=== PATIENT | female | born 1955 | race Caucasian/White ===

== ENCOUNTER 2023-08-24 12:32 | Inpatient (IN) | payer MEDICARE, SELFPAY ==
[2023-08-24] VITALS (7 sets, daily range): BP systolic 88–116; BP diastolic 48–66; PULSE 86–125; RESP 12–18; TEMP 36.4–37.6; O2SAT 98–100; BMI 23.3; BMI 24.3
--- NOTE | 2023-08-24 12:59 | EX.ED.DYSGE1 ---
HPI History of Present Illness Chief Complaint: Palpitations Detail of Chief Complaint: Palpitations, orthostatic dizziness, diarrhea and thirst Informant: patient Onset/Context/Timing Onset: Days (Onset Wednesday) Context: Sudden Onset Timing: Continuous and Waxes and wanes Quality: Orthostatic and diarrhea Location: GI and cardiovascular Current Severity: Mild Maximum Severity: Moderate Worsened by: Upright position Relieved by: Improved with brat diet yesterday Associated Symptoms Associated Symptoms: Previously documented Narrative Narrative: Patient is a 68-year-old woman with history of hypertension. Who presents with diarrhea that started Wednesday. She had 3 loose stools on Wednesday. She had 5 loose stools on Wednesday. She states it was mushy yesterday after she started a brat diet. Today she states it is watery again. She has not been on an antibiotic in the last month. She has had no ill contacts. She denies blood or mucus in her diarrhea. She denies black or maroon-colored stool. She states she is still urinating. She is thirsty. She also endorses dry mouth. She denies fever or chills. Denies myalgias or arthralgias. Prior similar symptoms: Yes Recent Illness/Hospitalization: No PFSH PFSH Home Medications hydrocodone-acetaminophen 5-325mg 5mg-325mg 1 tab PO Q6H PRN PRN Pain ##10 12/15/15 [Rx Last Taken Unknown] fenofibrate nanocrystallized 145 mg tablet 145 mg PO DAILY 12/16/15 [History Last Taken 12/15/15] levothyroxine 75 mcg tablet 75 mcg PO DAILY 12/16/15 [History Last Taken 12/15/15] lisinopril 10 mg-hydrochlorothiazide 12.5 mg tablet (Zestoretic) 1 tab PO DAILY 12/16/15 [History Last Taken 12/15/15] Allergy/AdvReac Type Severity Reaction Status Date / Time scallops Allergy Itching Verified 08/24/23 13:05 ketorolac tromethamine AdvReac Other Verified 08/24/23 13:05 [From Toradol] tramadol AdvReac Nausea Verified 08/24/23 13:05 Social History (Updated 08/24/23 @ 13:[address] Rolly Clarke MD) household members: none Smoking Status: Never smoker ROS ROS ED Constitutional Constitutional ED: Denies chills, fever(s), subjective or sweats Eyes Eyes: Denies blurry vision, change in vision or diplopia ENT ENT ED: Denies ear pain, rhinorrhea or sore throat Cardiovascular Cardiovascular: Reports palpitations; Denies chest pain Respiratory/Chest Respiratory/Chest: Denies cough, dyspnea or dyspnea on exertion Gastrointestinal Gastrointestinal: Reports abdominal pain and diarrhea; Denies constipation, melena, nausea or vomiting Genitourinary Genitourinary ED: Denies dysuria, hematuria or urinary frequency Musculoskeletal Musculoskeletal: Denies arthralgias or myalgias Integumentary Denies rash Neurologic Neurologic: Reports weakness; Denies headache(s) or paresthesias Endocrine Endocrinology: Denies cold intolerance or heat intolerance Hematologic/Lymphatic Hematologic/Lymphatic: Reports systems reviewed and no addt'l complaints, except as documented EXAM Physical Exam Const Vital Signs: 08/24/23 12:32 08/24/23 14:41 Temperature 98.1 F Temperature Source Temporal Pulse Rate 125 H 89 Respiratory Rate 18 15 Blood Pressure 88/58 L 116/64 Blood Pressure Mean 68 81 Pulse Ox 100 100 Oxygen Delivery Method Room Air Positive well nourished and well developed General Appearance ED: well developed, NAD and pallor HEENT Reports dry mucous membranes HEENT Narrative: Head is atraumatic and normocephalic. Ears are normal. Nares are patent. Posterior pharynx is normal. Mouth ED: Yes dry mucous membranes Mouth: dry mucous membranes Eyes PERRL and EOMs intact bilaterally General Eye ED: Yes pale conjunctiva; Negative for scleral icterus Neck no lymphadenopathy, supple and no JVD Chest Wall inspection of chest normal and palpation of chest normal Resp normal respiratory effort and clear to auscultation bilaterally Cardio regular rate, regular rhythm, S1 normal heart sound, S2 normal heart sound and no murmurs GI normal to inspection, nondistended, normoactive bowel sounds, non-tender, non-distended and no masses; Negative for hepatosplenomegaly Back/Spine no CVA tenderness Extremity normal to inspection Neuro oriented x3, CN's II-XII intact bilaterally and no sensory deficits noted Sensorium / Orientation: alert Psych mental status grossly normal Skin no rashes or lesions noted, no wounds and No skin turgor normal General Skin Exam: pallor; Negative for jaundice MDM MDM MDM Narrative Medical decision making narrative: Initial vital signs reveal patient was hypotensive and tachycardic. Suspect this is because she was upright when the pressure was taken. In supine position her pressure is 106 systolic with a heart rate of 88. PACs were noted on the monitor. Patient had a history of premature beats for the past 2 years. She is not on anticoagulant. Clinically she is dehydrated and suspect patient has orthostatic hypotension. 1 L normal saline was ordered. BMP was obtained to assess renal function and evaluate for hypokalemia. CBC to assess white count and determine the patient has eosinophilia. She has no risk factors for parasitic infection. Suspect this is viral. Lab Data Attestation: I reviewed the patient's lab results. Lab results narrative: Patient had a 2 to 3 g drop in hemoglobin. BUN/creatinine ratio is elevated. This may be due to GI bleed or profound dehydration. Patient had a bowel movement just prior to me walking in. The stool within the commode is a black-maroon appearing mushy stool. This is consistent with a GI bleed. Will call hospitalist for admission. Will have patient typed and screened. Will also contact Dr. Ceballos. Labs: Laboratory Results - last 24 hr 08/24/23 13:00 WBC 11.7 H RBC 3.11 L Hgb 9.1 L Hct 28.3 L MCV 91.0 MCH 29.3 MCHC 32.2 RDW Std Deviation 47.7 H RDW Coeff of Masood 14.5 Plt Count 316 MPV 9.0 Immature Gran % (Auto) 0.700 Neut % (Auto) 85.7 H Lymph % (Auto) 11.1 L [place] % (Auto) 2.1 Eos % (Auto) 0.0 Baso % (Auto) 0.4 Absolute Neuts (auto) 10.0 H Absolute Lymphs (auto) 1.30 Nucleated RBC % 0 Sodium 135 L Potassium 4.0 Chloride 106 Carbon Dioxide 25.0 Anion Gap 4 L BUN 43 H Creatinine 0.77 Estim Creat Clear Calc 73.79 Est GFR (MDRD) Af Amer 96 Est GFR (MDRD) Non-Af 79 BUN/Creatinine Ratio 55.6 H Glucose 140 H Calcium 9.1 EKG Initial EKG: Attestation: I personally reviewed and interpreted this EKG as follows: Interpretation: Sinus Rhythm (Rate is 88. Nonseptic ST-T wave changes noted. FL interval is under 72 ms. Cures duration 102 ms. QT duration 3 and 54 ms. [place] is normal.) Management Discussion w/another healthcare provider: Hospitalist (Hospitalist made aware of the history and physical and findings.) and Tenter Frame Operator (Dr. Ceballos was consulted. He plans on scoping her this evening.) Treatment and Re-Evaluation :: Will administer dose of Protonix. GI was consulted. Hospitalist was paged for admission. I was informed. 8584 the patient is going to the OR for EGD. Critical Care Time Critical Care Time: Yes Critical care time (excluding procedures): 30-74 minutes (31), Including time spent: (History, physical, independent rotation of laboratory results,), Discussing w/Patient &/or Family/Jockey'S Agent, Discussing w/Consultants (Hospitalist and GI), Arranging Admission or Transfer and - (Plan is OR prior to admission for emergent EGD) Discharge Plan Dx/Rx/DC Orders Clinical Impression: Orthostatic hypotension, Anemia due to blood loss, Signs and symptoms of anemia, History of renal hypertension, Symptomatic anemia, Acute gastrointestinal bleeding Disposition Disposition: Acute Care Hospital [facility]
[2023-08-24] MEDS: 0.9% Normal Saline (1000mL) 1,000 ML 1000 ML IV (13:19)
[2023-08-24 13:27] LABS: Basophil# 0.05 X10^3/uL; Basophil% 0.4 % (0-1); Hematocrit 28.3 % (37-47); Hemoglobin 9.1 g/dL (12.0-15.0); Lymphocyte % 11.1 % (19-41); Mean Corp Hgb Conc 32.2 g/dL (32-36); Mean Corpuscular Hgb 29.3 pg (27.0-32.0); Monocyte# 0.25 X10^3/uL; Monocyte% 2.1 % (0-10); NRBC Flagged by Analyzer 0 % (0-5); Neutrophil # 9.99 X10^3/uL (2.7-7.7); Neutrophil % 85.7 % (47-70); Platelet Count 316 K/mm3 (150-450); RBC Distribution Width CV 14.5 % (11.6-14.6); RBC Distribution Width SD 47.7 fl (35.1-43.9); Red Blood Count 3.11 M/mm3 (4.2-5.4); White Blood Count 11.7 K/mm3 (4.4-11.0)
[2023-08-24 13:42] LABS: Anion Gap 4 (5-15); BUN 43 mg/dL (7-18); BUN/Creat Ratio 55.6 RATIO (10-20); Calcium,Total 9.1 mg/dL (8.5-10.1); Chloride 106 mmol/L (98-107); Creatinine, Serum 0.77 mg/dL (0.55-1.02); EST Glomerular Filtration Rate 79 mL/min (>60); Est Glom Filt Rate - Afr Amer 96 mL/min (>60); Estimated Creatinine Clearance 73.79 ml/min; Glucose 140 mg/dL (74-106); Sodium Level 135 mmol/L (136-145)
--- NOTE | 2023-08-24 16:17 | NURSING ---
PCU [facility] GI BLEED, ORTHOSTATIC HYPOTENSION, SYNTOMATIC ANEMIA W SIGNS
--- NOTE | 2023-08-24 16:22 | CHAPLAIN ---
Type of Pastoral Visit _x__ Initial Visit ___ Follow-up Visit ___ On-call Visit ___ General Patient Visit ___ Spiritual Assessment ___ Family Conference ___ Bereavement ___ Rapid Response ___ Code Blue ___ Other (describe below) Pastoral Care Referral From _x__ Patient _x__ Family ___ Nurse ___ Physician ___ Data Conversion Operator ___ Social Work Lecturer ___ Other (describe below) Sacrament/Intervention _x__ Active listening ___ Anointing ___ Holiness ___ Bereavement ___ Communion ___ Kaye exploration ___ ___ Life review _x__ Prayer ___ Reconciliation ___ Sacrament of Sick ___ Supportive presence ___ Wedding ___ Other (describe below) Pastoral Comments while addressing a code situation in the ED the daughter of this patient invited care and prayer for her mother; presence and prayer given with offer of future support if patient is admitted
--- NOTE | 2023-08-24 16:27 | NURSING ---
SURGERY GI BLEED DR GUTIERREZ
[2023-08-24] MEDS: Pantoprazole Sodium 80 MG in 0.9% Normal Saline (50mL Bag) 15 ML 420 MG IV BOLUS (16:30)
--- NOTE | 2023-08-24 16:38 | HP.PCM.HOS_ITS ---
HPI - General General Date of Admission: 08/24/23 Date of Service: 08/24/23 Chief Complaint: Dizzy, black stool HPI Narrative ALEXANDREA GODFREY, is a 68 F with a history of hypertension and hypothyroidism who presented to [facility] ED 08/24/2023 with several days of diarrhea that has been dark and dizziness with palpitations. In the ED she had a maroon stool and was also found to have a hemoglobin of 9.1, no other previous or recent values but was hypotensive and tachycardic. GI contacted and patient be taken for scope. Patient seen in ED prior to being taken for EGD. She reports that on Wednesday she started having dark diarrhea and has been dizzy and having palpitations, it has just been worsening and today had the maroon stools in the ED. No abdominal pain, no other specific complaints. PFSH Home Medications hydrocodone-acetaminophen 5-325mg 5mg-325mg 1 tab PO Q6H PRN PRN Pain ##10 12/15/15 [Rx Last Taken Unknown] fenofibrate nanocrystallized 145 mg tablet 145 mg PO DAILY 12/16/15 [History Last Taken 12/15/15] levothyroxine 75 mcg tablet 75 mcg PO DAILY 12/16/15 [History Last Taken 12/15/15] lisinopril 10 mg-hydrochlorothiazide 12.5 mg tablet (Zestoretic) 1 tab PO DAILY 12/16/15 [History Last Taken 12/15/15] Allergy/AdvReac Type Severity Reaction Status Date / Time scallops Allergy Itching Verified 08/24/23 13:05 zolpidem [From Ambien] AdvReac Mild Other Verified 08/24/23 16:46 atorvastatin [From Lipitor] AdvReac Other Verified 08/24/23 16:46 ketorolac tromethamine AdvReac Other Verified 08/24/23 13:05 [From Toradol] meloxicam AdvReac Other Verified 08/24/23 16:46 nabumetone [From Relafen] AdvReac Other Verified 08/24/23 16:46 naproxen AdvReac Upset Verified 08/24/23 16:46 Stomach ondansetron [From Zofran] AdvReac Other Verified 08/24/23 16:46 tramadol AdvReac Nausea Verified 08/24/23 13:05 Social History (Updated 08/24/23 @ 13:[address] Rolly Clarke MD) household members: none Smoking Status: Never smoker ROS ROS Narrative General: Denies fever/chills, has been dizzy and feeling unwell HENT: Denies headache, denies stuffy nose, denies sore throat EYES: Denies changes in vision Resp: Denies cough, denies shortness of breath Cardiac: Denies chest pain GI: Denies abdominal pain, has had dark diarrhea since Wednesday, denies nausea/vomiting : Denies changes in urination Extremity: Denies swelling MSK: Somewhat weak Neuro: Denies any numbness/tingling Heme: Denies any bleeding or bruising Skin: Denies rashes Psychiatric: No complaints voiced Vital Signs Vital Signs Vital Signs: 08/24/23 12:32 08/24/23 14:41 08/24/23 16:21 Temperature 98.1 F 99.6 F H Temperature Source Temporal Pulse Rate 125 H 89 89 Respiratory Rate 18 15 12 Blood Pressure 88/58 L 116/64 112/66 Blood Pressure Mean 68 81 81 Pulse Ox 100 100 99 Oxygen Delivery Method Room Air Weight Weight: 74.644 kg Body Mass Index (BMI) 23.3 Physical Exam Narrative General: Alert, oriented, no apparent distress HEENT: Atraumatic, normocephalic Eyes: Anicteric, normal conjunctiva, extraocular movements grossly intact Neck: Supple Respiratory: Clear to auscultation bilaterally, normal respiratory effort Cardiovascular: Low-grade tachycardia, sinus GI: Soft, nontender, nondistended Extremities: No edema Musculoskeletal: Moving all extremities Neuro: No overt focal neurological deficits Skin: No rashes appreciated Psych: Cooperative Results Lab / Micro Data 08/24/23 13:00 08/24/23 13:00 Labs: Laboratory Results - last 24 hr 08/24/23 13:00: WBC 11.7 H, RBC 3.11 L, Hgb 9.1 L, Hct 28.3 L, MCV 91.0, MCH 29.3, MCHC 32.2, RDW Std Deviation 47.7 H, RDW Coeff of Masood 14.5, Plt Count 316, MPV 9.0, Immature Gran % (Auto) 0.700, Neut % (Auto) 85.7 H, Lymph % (Auto) 11.1 L, [place] % (Auto) 2.1, Eos % (Auto) 0.0, Baso % (Auto) 0.4, Absolute Neuts (auto) 10.0 H, Absolute Lymphs (auto) 1.30, Nucleated RBC % 0, Sodium 135 L, Potassium 4.0, Chloride 106, Carbon Dioxide 25.0, Anion Gap 4 L, BUN 43 H, Creatinine 0.77, Estim Creat Clear Calc 73.79, Est GFR (MDRD) Af Amer 96, Est GFR (MDRD) Non-Af 79, BUN/Creatinine Ratio 55.6 H, Glucose 140 H, Calcium 9.1 Assessment & Plan Assessment/Plan (1) Acute gastrointestinal bleeding: (2) Hypertension: (3) Hypothyroidism: (4) Symptomatic anemia: PLAN: Plan # Symptomatic anemia and concern for GI bleed -Hemoglobin 9.1, no recent values but patient was hypotensive and tachycardic on arrival and had witnessed maroon-colored stools -Elevated BUN/Cr ratio, suggestive of upper bleed -Patient given bolus of Protonix -Continue IV Protonix -Type and cross -Trend H&H -N.p.o. -Patient to be taken to endoscopy with GI, formal GI consult #Hypothyroidism -Continue Synthroid # Hypertension -Hold home meds given low BP and GI bleed #DVT ppx: SCDs Alberta Ziegler MD Charges/Coding Visit Charges Inpatient E&M: 29638 Init Hosp L1
[2023-08-24 17:08] LABS: Hematocrit 25.3 % (37-47); Hemoglobin 8.1 g/dL (12.0-15.0); Mean Corpuscular Hgb 29.3 pg (27.0-32.0); Mean Corpuscular Volume 91.7 fL (81-99); Mean Platelet Vol. 9.1 fl (6.2-12.0); Platelet Count 281 K/mm3 (150-450); RBC Distribution Width CV 14.5 % (11.6-14.6); RBC Distribution Width SD 48.1 fl (35.1-43.9); Red Blood Count 2.76 M/mm3 (4.2-5.4); White Blood Count 10.8 K/mm3 (4.4-11.0)
--- NOTE | 2023-08-24 17:21 | EX.PCM.CON.G ---
HPI Consult Data Date of Consult: 08/24/23 HPI Narrative Reason for Consultation: GI bleed HPI Narrative: ALEXANDREA GODFREY, is a 68 F with a history of hypertension and hypothyroidism who presented to [facility] ED 08/24/2023 with several days of diarrhea that has been dark and dizziness with palpitations. In the ED she had a maroon stool and was also found to have a hemoglobin of 9.1, no other previous or recent values but was hypotensive and tachycardic. I was contacted and recommended that the patient be taken for scope. Patient was seen in ED prior to being taken for EGD. She reports that on Wednesday she started having dark diarrhea and has been dizzy and having palpitations, it has just been worsening and today had the maroon stools in the ED. No abdominal pain, no other specific complaints. [facility] Medical History (Updated 08/24/23 @ 17:15 by Fidelina Wagoner) Arthritis Palpitations Thyroid disease Home Medications fenofibrate nanocrystallized 145 mg tablet 145 mg PO DAILY 12/16/15 [History Last Taken 08/24/23 06:30] levothyroxine 75 mcg tablet 75 mcg PO DAILY 12/16/15 [History Last Taken 08/24/23] lisinopril 10 mg-hydrochlorothiazide 12.5 mg tablet (Zestoretic) 1 tab PO DAILY 12/16/15 [History Last Taken 08/24/23] albuterol sulfate 90 mcg/actuation aerosol inhaler inhalation 08/24/23 [History Last Taken Unknown] Allergy/AdvReac Type Severity Reaction Status Date / Time scallops Allergy Itching Verified 08/24/23 13:05 zolpidem [From Ambien] AdvReac Mild Other Verified 08/24/23 16:46 atorvastatin [From Lipitor] AdvReac Other Verified 08/24/23 16:46 ketorolac tromethamine AdvReac Other Verified 08/24/23 13:05 [From Toradol] meloxicam AdvReac Other Verified 08/24/23 16:46 nabumetone [From Relafen] AdvReac Other Verified 08/24/23 16:46 naproxen AdvReac Upset Verified 08/24/23 16:46 Stomach ondansetron [From Zofran] AdvReac Other Verified 08/24/23 16:46 tramadol AdvReac Nausea Verified 08/24/23 13:05 Social History (Updated 08/24/23 @ 13:[address] Rolly Clarke MD) household members: none Smoking Status: Never smoker ROS ROS Narrative General: Denies fever/chills, has been dizzy and feeling unwell HENT: Denies headache, denies stuffy nose, denies sore throat EYES: Denies changes in vision Resp: Denies cough, denies shortness of breath Cardiac: Denies chest pain GI: Denies abdominal pain, has had dark diarrhea since Wednesday, denies nausea/vomiting : Denies changes in urination Extremity: Denies swelling MSK: Somewhat weak Neuro: Denies any numbness/tingling Heme: Denies any bleeding or bruising Skin: Denies rashes Psychiatric: No complaints voiced Physical Exam Narrative General: Alert, oriented, no apparent distress HEENT: Atraumatic, normocephalic Eyes: Anicteric, normal conjunctiva, extraocular movements grossly intact Neck: Supple Respiratory: Clear to auscultation bilaterally, normal respiratory effort Cardiovascular: Low-grade tachycardia, sinus GI: Soft, nontender, nondistended Extremities: No edema Musculoskeletal: Moving all extremities Neuro: No overt focal neurological deficits Skin: No rashes appreciated Psych: Cooperative Lab / Micro Data 08/24/23 17:00 08/24/23 13:00 Labs: Laboratory Results - last 24 hr 08/24/23 13:00: WBC 11.7 H, RBC 3.11 L, Hgb 9.1 L, Hct 28.3 L, MCV 91.0, MCH 29.3, MCHC 32.2, RDW Std Deviation 47.7 H, RDW Coeff of Masood 14.5, Plt Count 316, MPV 9.0, Immature Gran % (Auto) 0.700, Neut % (Auto) 85.7 H, Lymph % (Auto) 11.1 L, [place] % (Auto) 2.1, Eos % (Auto) 0.0, Baso % (Auto) 0.4, Absolute Neuts (auto) 10.0 H, Absolute Lymphs (auto) 1.30, Nucleated RBC % 0, Sodium 135 L, Potassium 4.0, Chloride 106, Carbon Dioxide 25.0, Anion Gap 4 L, BUN 43 H, Creatinine 0.77, Estim Creat Clear Calc 73.79, Est GFR (MDRD) Af Amer 96, Est GFR (MDRD) Non-Af 79, BUN/Creatinine Ratio 55.6 H, Glucose 140 H, Calcium 9.1 08/24/23 17:00: WBC 10.8, RBC 2.76 L, Hgb 8.1 L, Hct 25.3 L, MCV 91.7, MCH 29.3, MCHC 32.0, RDW Std Deviation 48.1 H, RDW Coeff of Masood 14.5, Plt Count 281, MPV 9.1 Assessment & Plan Assessment/Plan (1) Acute gastrointestinal bleeding: (2) Hypertension: (3) Hypothyroidism: (4) Symptomatic anemia: PLAN: Plan 68-year-old with no significant past medical history other than hypothyroidism, asthma, hypertension and hypercholesterolemia presents with Symptomatic anemia and concern for GI bleed -Hemoglobin 9.1, no recent values but patient was hypotensive and tachycardic on arrival and had witnessed maroon-colored stools -Elevated BUN/Cr ratio, suggestive of upper bleed -Patient given bolus of Protonix -Continue IV Protonix -Type and cross -Trend H&H -N.p.o. -Patient will undergo an upper endoscopy and if negative she will need a CT scan abdomen pelvis and a colonoscopy possibly. She was explained alternatives, risk, benefits include not withstanding bleeding, infection, sepsis, perforation, need for emergent surgery . She will have an ASA of 3. Charges/Coding Visit Charges Inpatient E&M: 74233 Init Hosp L3
--- NOTE | 2023-08-24 17:45 | OP.EGD_ITS ---
Patient Name: Herminia Pinon Procedure Date: 08/24/2023 5:11 PM Date of : 1955 Age: 68 Procedure: Upper GI endoscopy Indications: Iron deficiency anemia, Melena Providers: Nav Ceballos DO Medicines: Monitored Anesthesia Care Patient Profile: This is a 68 year old female. Refer to note in patient chart for documentation of history and physical. Patient has symptoms of acute epigastric abdominal pain and acute dyspepsia. Complications: No immediate complications. Procedure: Pre-Anesthesia Assessment: - Prior to the procedure, a History and Physical was performed, and patient medications and allergies were reviewed. The patient is competent. The risks and benefits of the procedure and the sedation options and risks were discussed with the patient. All questions were answered and informed consent was obtained. Patient identification and proposed procedure were verified by the physician in the pre-procedure area. Mental Status Examination: alert and oriented. Airway Examination: normal oropharyngeal airway and neck mobility. Respiratory Examination: clear to auscultation. CV Examination: normal. Prophylactic Antibiotics: The patient does not require prophylactic antibiotics. Prior Anticoagulants: The patient has taken no anticoagulant or antiplatelet agents. ASA Grade Assessment: II - A patient with mild systemic disease. After reviewing the risks and benefits, the patient was deemed in satisfactory condition to undergo the procedure. The anesthesia plan was to use monitored anesthesia care (MAC). Immediately prior to administration of medications, the patient was re-assessed for adequacy to receive sedatives. The heart rate, respiratory rate, oxygen saturations, blood pressure, adequacy of pulmonary ventilation, and response to care were monitored throughout the procedure. The physical status of the patient was re-assessed after the procedure. After obtaining informed consent, the endoscope was passed under direct vision. Throughout the procedure, the patient's blood pressure, pulse, and oxygen saturations were monitored continuously. The Endoscope was introduced through the mouth, and advanced to the second part of duodenum. The upper GI endoscopy was accomplished without difficulty. The patient tolerated the procedure well. Scope In: 5:33:59 PM Scope Out: 5:38:36 PM Total Procedure Duration Time 0 hours 4 minutes 37 seconds Findings: Grade II varices were found in the upper third of the esophagus. They were 9 mm in largest diameter. A single 5 mm angiodysplastic lesion with no bleeding was found on the greater curvature of the stomach. Coagulation for bleeding prevention using heater probe was successful. Estimated blood loss was minimal. No gross lesions were noted in the second portion of the duodenum. Impression: - Grade II esophageal varices. - A single non-bleeding angiodysplastic lesion in the stomach. Treated with a heater probe. - No gross lesions in the second portion of the duodenum. - No specimens collected. Recommendation: - [facility]. - Clear liquid diet. - Continue present medications. - CT scan of the chest abdomen and pelvis due to upper esophageal varices and their association with lung malignancy or blockage at the level of the superior vena cava - Possible colonoscopy Procedure Code(s): --- Professional --- 37561, Esophagogastroduodenoscopy, flexible, transoral; with control of bleeding, any method CPT copyright 2021 [employer]. All rights reserved. The codes documented in this report are preliminary and upon psychiatric aide review may be revised to meet current compliance requirements. Nav Ceballos DO 08/24/2023 5:44:55 PM This report has been signed electronically. Number of Addenda: 0 Note Initiated On: 08/24/2023 5:11 PM
--- NOTE | 2023-08-24 17:45 | OP.CCLET_ITS ---
08/24/2023 Palmira Felix [address] [place] [address] Re : Upper GI endoscopy procedure for Herminia Pompabreezy Dear Dr. Felix This procedure was performed on Thursday, August 24, 2023. My impressions and recommendations are as follows: Impressions : - Grade II esophageal varices. - A single non-bleeding angiodysplastic lesion in the stomach. Treated with a heater probe. - No gross lesions in the second portion of the duodenum. - No specimens collected. Recommendations : - [facility] to [facility] care. - Clear liquid diet. - Continue present medications. - CT scan of the chest abdomen and pelvis due to upper esophageal varices and their association with lung malignancy or blockage at the level of the superior vena cava - Possible colonoscopy My findings are described in the full procedure note, which is enclosed. If I can be of further assistance, please feel free to contact me at . Sincerely, Nav Ceballos, 08/24/2023 5:44:55 PM This report has been signed electronically.
--- NOTE | 2023-08-24 17:46 | CT_ITS ---
STUDY: CTA CHEST AND CTA ABDOMEN/PELVIS WITH CONTRAST REASON FOR EXAM: Female, 68 years old. GI bleed and upper esophageal varices RADIATION DOSAGE (If Supplied By Facility): CTDIvol = ( 15.29 ) mGy, DLP = ( 1171.14 ) mGycm TECHNIQUE: The examination was performed with the intravenous administration of IV 75mL [id number]. Post-processing of the angiographic images was performed, with multiplanar reformation and 3D reconstruction. Individualized dose optimization techniques were used for this CT. COMPARISON: No relevant priors. FINDINGS: CTA Chest Normal enhancement of the main pulmonary artery and right and left pulmonary arteries. Normal enhancement of the bilateral peripheral pulmonary arteries. There is no demonstrated pulmonary embolism. Normal thoracic aorta and visualized great vessels. There is no demonstrated aortic dissection. Normal heart and pericardium. There are calcified mediastinal lymph nodes. There are calcified right hilar lymph nodes. Normal visualized trachea and bronchi. The lungs are well expanded. There is no focal infiltrate. There is left lower lung granuloma. Normal pleura. Normal chest wall structures. Normal osseous structures. CTA Abdomen T Pelvis There is 3.2 cm peripherally enhancing mass measuring of the liver with probable hemangioma. There are surgical clips in the gallbladder fossa consistent with a prior cholecystectomy. Normal spleen. Normal pancreas. Normal bilateral adrenal glands. There are 1.7 and 1.3 cm cysts of the right kidney. Normal left kidney. Normal visualized stomach. Normal small intestine. There are multiple colonic diverticula consistent with diverticulosis. The appendix is visualized and appears normal. There is diffuse atherosclerotic calcification of the abdominal aorta, without a demonstrated aneurysm. Normal inferior vena cava. Normal retroperitoneum. Normal urinary bladder. Normal visualized uterus. There is no free fluid in the abdomen or pelvis. Normal abdominal wall. There is degenerative change of the spine and hips. CT/CTA Chst, Abd, Pel W and/or WO IMPRESSION: No aneurysm or dissection. No active hemorrhage seen. No obstruction. No focal infiltrate. Electronically Signed: Gerald Jauregui MD at 20:47 EST ,
--- OUTSIDE RECORDS SUMMARY | 2023-08-24 19:31 | XMS RPT_ITS | CCD ---
Author Name Unknown Address [address] [facility] 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 Name Role Phone Jesus Marin MD Unavailable [phone] Jesus Marin MD Unavailable Palmira Ding MD Primary Care Provider ROSE PAEZ Attending Unavailable GANTA, PALMIRA Primary Care Unavailable GANTA, PALMIRA Primary Care Unavailable GANTA, PALMIRA Referring Unavailable GANTA, PALMIRA Primary Care Unavailable GANTA, PALMIRA Referring Unavailable GANTA, PALMIRA Primary Care Unavailable GANTA, PALMIRA Attending Unavailable EMMIE, VARGAS Referring Unavailable GANTA, PALMIRA Primary Care Unavailable GEORGI LUA Attending Unavailable NORMA FINK Referring Unavailable GANTA, PALMIRA Primary Care Unavailable OLDERNORMA Attending Unavailable GANTA, PALMIRA Primary Care Unavailable GANTA, PALMIRA Referring Unavailable GANTA, PALMIRA Primary Care Unavailable CHANELLGEORGI Referring Unavailable EMMIE, VARGAS Attending Unavailable GANTA, PALMIRA Primary Care Unavailable Jesus Marin MD Unavailable Jesus Marin MD Unavailable Palmira Ding MD Primary Care Provider Allergies Allergy Classification Reported Allergen(s) Allergy Type Date of Onset Reaction(s) Facility (20 sources) atorvastatin; Translations: [ATORVASTATIN CALCIUM] Drug Allergy 4 Other: See Comments [facility] Work Phone: (4 sources) HMG-CoA reductase inhibitor; Translations: [COLFUZP-ZEC-TZ A REDUCTASE INHIBITORS] Drug Intolerance 5 Other: See Comments [facility] Work Phone: (20 sources) Ketorolac; Translations: [KETOROLAC TROMETHAMINE] Drug Allergy 6 Other: See Comments [facility] (20 sources) meloxicam; Translations: [MELOXICAM] Drug Allergy 5 GI Upset [facility] Work Phone: (20 sources) nabumetone; Translations: [NABUMETONE] Drug Allergy 5 Other: See Comments [facility] (20 sources) Naproxen; Translations: [NAPROXEN SODIUM] Drug Allergy 5 GI Upset [facility] (20 sources) Ondansetron; Translations: [ONDANSETRON] Drug Allergy 0 Other: See Comments [facility] Work Phone: (20 sources) scallop allergenic extract; Translations: [SCALLOPS] Drug Allergy 2 Other: See Comments [facility] (20 sources) Seasonal allergy; Translations: [SEASONAL ALLERGIES] Propensity to adverse reactions 2 Other: See Comments [facility] (20 sources) zolpidem; Translations: [ZOLPIDEM TARTRATE] Drug Allergy 8 Intolerance [facility] Work Phone: (20 sources) HMG-CoA reductase inhibitor Drug Intolerance 5 Other: See Comments [facility] Work Phone: Medications Current Medications Medication Drug Class(es) Dates Sig (Normalized) Sig (Original) polyethylene glycol 3350 [id number] mg / potassium chloride 2970 mg / sodium bicarbonate 6740 mg / sodium chloride 5860 mg / sodium sulfate 85190 mg powder for oral solution (1 source) Osmotic Laxative Start: 03-01-2023 End: 03-01-2023 peg 3350-Electrolytes (GOLYTELY) 236-22.74-6.74 -5.86 gram suspension Take 4,000 mL by mouth one time only for 1 dose. 1 Each 0 03/01/2023 03/01/2023 Active Completed/Discontinued Medications Medication Drug Class(es) Dates Sig (Normalized) Sig (Original) [id number] 200 actuat albuterol 0.09 mg/actuat metered dose inhaler (20 sources) beta2-Adrenergic Agonist Start: 10-17-2020 End: 12-18-2022 take 2 puff(s) by inhalation every four hours as needed for wheezing albuterol HFA (VENTOLIN HFA) 90 mcg/actuation inhaler Indications: Asthmatic bronchitis, unspecified asthma severity, uncomplicated Inhale 2 Puffs as instructed every 4 hours as needed for wheezing/shortness of breath. 18 g 11 12/18/2022 Active Problems Active Problems Problem Classification Problem Date Documented Da te Episodic/Chronic Anxiety disorders (20 sources) Anxiety neurosis ; Translations: [Generalized anxiety disorder] Onset: 07-01-2016 07-01-2016 Chronic Asthma (20 sources) Asthmatic bronchitis; Translations: [Unspecified asthma, uncomplicated] Onset: 08-25-2011 Chronic Disorders of lipid metabolism (20 sources) Hyperlipidemia; Translations: [Hyperlipidemia, unspecified] Onset: 08-25-2011 Chronic Essential hypertension (20 sources) Essential hypertension; Translations: [Essential (primary) hypertension] Onset: 08-25-2011 07-05-2015 Chronic Immunizations and screening for infectious disease (2 sources) Vaccination needed; Translations: [Encounter for immunization] Episodic Nutritional deficiencies (20 sources) Vitamin D deficiency; Translations: [Vitamin D deficiency, unspecified] Onset: 08-19-2019 08-19-2019 Chronic Osteoarthritis (20 sources) Degenerative joint disease involving multiple joints; Translations: [Polyosteoarthritis , unspecified] Onset: 07-05-2015 07-05-2015 Chronic Osteoporosis (1 source) Senile osteoporosis; Translations: [Age-related osteoporosis without current pathological fracture] Chronic Other and unspecified benign neoplasm (2 sources) History of polyp of colon; Translations: [Personal history of colonic polyps] 03-01-2023 Episodic Other and unspecified benign neoplasm (1 source) Personal history of colonic polyps; Translations: [History of colonic polyps] Onset: 05-04-2023 Episodic Other connective tissue disease (20 sources) History of total knee arthroplasty; Translations: [Presence of unspecified artificial knee joint] Onset: 10-17-2015 10-17-2015 Chronic Other screening for suspected conditions (not mental disorders or infectious disease) (3 sources) Patient encounter status; Translations: [Encounter for screening mammogram for malignant neoplasm of breast] Episodic Other skin disorders (1 source) Koilonychia; Translations: [Nail dystrophy] Episodic Thyroid disorders (20 sources) Acquired hypothyroidism; Translations: [Hypothyroidism, unspecified] Onset: 08-25-2011 Chronic Past or Other Problems Problem Classification Problem Date Documented Date Episodic/Chronic Miscellaneous mental health disorders (20 sources) Acute insomnia; Translations: [Adjustment insomnia] Onset: 03-06-2016 03-06-2016 Episodic Other aftercare (1 source) 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; Translations: [Medication management] Onset: 03-20-2023 Episodic Other and unspecified benign neoplasm (20 sources) Duct papilloma of breast; Translations: [Benign neoplasm, unspecified site] Onset: 11-14-2012 11-14-2012 Episodic Other female genital disorders (1 source) Other specified noninflammatory disorders of vulva and perineum; Translations: [Vulvar lesion] Onset: 11-17-2022 Episodic Residual codes; unclassified (20 sources) Family history of cancer of colon; Translations: [Family history of malignant neoplasm of digestive organs] Onset: 10-15-2011 10-15-2011 Episodic Residual codes; unclassified (1 source) Family history of malignant neoplasm of digestive organs; Translations: [Family history of colon cancer] Onset: 10-15-2011 Episodic Spondylosis; intervertebral disc disorders; other back problems (20 sources) Sciatica; Translations: [Sciatica, left side] Onset: 08-19-2019 08-19-2019 Episodic Varicose veins of lower extremity (20 sources) Varicose veins of lower extremity; Translations: [Asymptomatic varicose veins of unspecified lower extremity] Onset: 04-09-2017 04-09-2017 Episodic Results Test Name Value Interpretation Reference Range Facil ity Vital Signs Date Time Vital Sign Value Performing Clinician Faci lity 05-04-2023 10:37-0400 Diastolic blood pressure 61 mm[Hg] Georgi Lua MD Work Phone: [facility] 05-04-2023 10:37-0400 Heart rate 60 /min Georgi Lua MD Work Phone: [facility] 05-04-2023 10:37-0400 Respiratory rate 16 /min Georgi Lua MD Work Phone: [facility] 05-04-2023 10:37-0400 SaO2% (BldA) [Mass fraction] 97 % Georgi Lua MD Work Phone: [facility] 05-04-2023 10:37-0400 Systolic blood pressure 142 mm[Hg] Georgi Lua MD Work Phone: [facility] 05-04-2023 08:36-0400 Body temperature 97.59 [degF] Georgi Lua MD Work Phone: [facility] 03-24-2023 09:43-0400 Body weight 75.75 kg Norma Older CHECKER IN.CAB STATION ATTENDANT Work Phone: [facility] 03-24-2023 09:43-0400 Diastolic blood pressure 82 mm[Hg] Norma Older CHECKER IN.CAB STATION ATTENDANT Work Phone: [facility] 03-24-2023 09:43-0400 Heart rate 66 /min Norma Older CHECKER IN.CAB STATION ATTENDANT Work Phone: [facility] 03-24-2023 09:43-0400 Respiratory rate 16 /min Norma Older CHECKER IN.CAB STATION ATTENDANT Work Phone: [facility] 03-24-2023 09:43-0400 SaO2% (BldA) [Mass fraction] 100 % Norma Older CHECKER IN.CAB STATION ATTENDANT Work Phone: [facility] 03-24-2023 09:43-0400 Systolic blood pressure 140 mm[Hg] Norma Older CHECKER IN.CAB STATION ATTENDANT Work Phone: [facility] 03-01-2023 09:29-0400 Body height 177.8 cm Vargas Selah PA-C Work Phone: [facility] 03-01-2023 09:29-0400 Body temperature 98.29 [degF] Vargas Emmie PA-C Work Phone: [facility] 03-01-2023 09:29-0400 Body weight 77.56 kg Vargas Selah PA-C Work Phone: [facility] 03-01-2023 09:29-0400 Diastolic blood pressure 68 mm[Hg] Vargas Emmie PA-C Work Phone: [facility] 03-01-2023 09:29-0400 Heart rate 74 /min Vargas Camarillof PA-C Work Phone: [facility] 03-01-2023 09:29-0400 SaO2% (BldA) [Mass fraction] 99 % Vargas Camarillof PA-C Work Phone: [facility] 03-01-2023 09:29-0400 Systolic blood pressure 128 mm[Hg] Vargas Camarillof PA-C Work Phone: [facility] 09-18-2022 10:00-0500 Body height 177.8 cm Palmira Ding MD Work Phone: [facility] 09-18-2022 10:00-0500 Body temperature 97.9 [degF] Palmira Ding MD Work Phone: [facility] 09-18-2022 10:00-0500 Body weight 77.56 kg Palmira Ding MD Work Phone: [facility] 09-18-2022 10:00-0500 Diastolic blood pressure 62 mm[Hg] Palmira Ding MD Work Phone: [facility] 09-18-2022 10:00-0500 Heart rate 63 /min Palmira Ding MD Work Phone: [facility] 09-18-2022 10:00-0500 Respiratory rate 12 /min Palmira Ding MD Work Phone: [facility] 09-18-2022 10:00-0500 SaO2% (BldA) [Mass fraction] 100 % Palmira Ding MD Work Phone: [facility] 09-18-2022 10:00-0500 Systolic blood pressure 124 mm[Hg] Palmira Ding MD Work Phone: [facility] 04-23-2022 09:48-0400 Body weight 75.48 kg Palmira Ding MD Work Phone: [facility] 04-23-2022 09:48-0400 Diastolic blood pressure 64 mm[Hg] Palmira Ding MD Work Phone: [facility] 04-23-2022 09:48-0400 Heart rate 63 /min Palmira Ding MD Work Phone: [facility] 04-23-2022 09:48-0400 Respiratory rate 16 /min Palmira Ding MD Work Phone: [facility] 04-23-2022 09:48-0400 SaO2% (BldA) [Mass fraction] 98 % Palmira Ding MD Work Phone: [facility] 04-23-2022 09:48-0400 Systolic blood pressure 130 mm[Hg] Palmira Ding MD Work Phone: [facility] 10-21-2021 10:06-0400 Body height 177.8 cm Palmira Ding MD Work Phone: [facility] 10-21-2021 10:06-0400 Body temperature 97.11 [degF] Palmira Ding MD Work Phone: [facility] 10-21-2021 10:06-0400 Body weight 73.94 kg Palmira Ding MD Work Phone: [facility] 10-21-2021 10:06-0400 Diastolic blood pressure 70 mm[Hg] Palmira Ding MD Work Phone: [facility] 10-21-2021 10:06-0400 Heart rate 66 /min Palmira Ding MD Work Phone: [facility] 10-21-2021 10:06-0400 Respiratory rate 12 /min Palmira Ding MD Work Phone: [facility] 10-21-2021 10:06-0400 SaO2% (BldA) [Mass fraction] 99 % Palmira Ding MD Work Phone: [facility] 10-21-2021 10:06-0400 Systolic blood pressure 124 mm[Hg] Palmira Ding MD Work Phone: [facility] Encounters Encounter Date Encounter Type Care Provider Facility Start: 08-20-2023 Marsha Fink APRN .CAB STATION ATTENDANT Work Phone: [facility] [place] Procedures Date Procedure Procedure Detail Performing Clinician Start: 05-04-2023 Level iv surg pathol ogy gross&microscopic exam Georgi Lua MD Work Phone: Start: 05-04-2023 Colonoscopy flx dx w /collj spec when pfrmd Vargas Olea PA-C Work Phone: Start: 05-04-2023 Colonoscopy Screen Wst r Start: 03-27-2023 Lipid 1996 panel - S sheila or Plasma Screen Wstr Start: 10-30-2022 End: 10-30-2022 Mammography Yaneli Manzanares MD Work Phone: Start: 10-28-2021 End: 10-28-2021 Screening mammography bi 2-view breast inc cad Bulk Order Provider Start: 08-07-2020 Mammography Palmira carter MD Work Phone: Start: 04-12-2019 Adult depression scr eening assessment Palmira Ding MD Work Phone: Start: 03-15-2018 Colonoscopy Palmira carter MD Work Phone: Plan of Treatment Date Care Activity Detail Author Start: 05-04-2028 Colonoscopy Colonoscopy [facility] Start: 05-04-2028 Colorectal Cancer Screening Colorectal Cancer Screening [facility] Start: 05-04-2028 Screening for malign ant neoplasm of colon [facility] Start: 03-27-2028 Lipid 1996 panel - S sheila or Plasma Lipid Screening [facility] Start: 03-27-2028 Lipid panel Lipid Screening [facility] Start: 09-25-2027 LIPID SCREEN LIPID SCREEN [facility] Start: 04-23-2027 LIPID SCREEN LIPID SCREEN [facility] Start: 10-22-2026 LIPID SCREEN LIPID SCREEN [facility] Start: 04-24-2026 LIPID SCREEN LIPID SCREEN [facility] Start: 03-20-2026 DIABETES SCREEN DIABETES SCREEN [facility] Start: 03-20-2026 Diabetes Screening Diabetes Screenin g [facility] Start: 04-13-2025 DIABETES SCREEN DIABETES SCREEN [facility] Start: 10-16-2024 DIABETES SCREEN DIABETES SCREEN [facility] Start: 03-24-2024 ANNUAL PCP TEAM PROGRAM SPECIALIST LAURA DISEASE VISIT ANNUAL PCP TEAM CHRONIC DISEASE VISIT [facility] Start: 03-24-2024 Pneumococcal Vaccine : 65+ (2 - PCV) Pneumococcal Vaccine: 65+ (2 - PCV) [facility] Immunizations Immunization Date Immunization Notes Care Provider Kaitlin lynarnold 06-02-2023 influenza (aIIV4) vaccine, age 65+ yr, quadrivalent, PF (FLUAD QUAD) Norma Older CHECKER IN.CAB STATION ATTENDANT Work Phone: [facility] 2022 influenza virus vacc ine, unspecified formulation Screen Wstr [facility] 10-21-2021 pneumococcal polysaccharide vaccine, 23 valent Palmira Ding MD Work Phone: [facility] Work Phone: 04-30-2020 influenza virus vacc ine, unspecified formulation Palmira Ding MD Work Phone: [facility] 04-26-2019 Influenza, injectabl e, Madin Phuong Canine Kidney, preservative free, quadrivalent Palmira Ding MD Work Phone: [facility] 04-26-2019 influenza, seasonal, injectable Palmira Ding MD Work Phone: [facility] 04-20-2018 influenza, injectabl e, quadrivalent, preservative free Palmira Ding MD Work Phone: [facility] 05-04-2017 influenza, injectabl e, quadrivalent, contains preservative Palmira Ding MD Work Phone: [facility] 04-28-2016 influenza, injectabl e, quadrivalent, contains preservative Palmira Ding MD Work Phone: [facility] Work Phone: 05-21-2015 influenza, injectabl e, quadrivalent, contains preservative Palmira Ding MD Work Phone: [facility] 05-21-2015 influenza, seasonal, injectable Palmira Ding MD Work Phone: [facility] 05-17-2014 influenza, seasonal, injectable Palmira Ding MD Work Phone: [facility] Work Phone: 08-01-2013 influenza virus vacc ine, unspecified formulation Palmira Ding MD Work Phone: [facility] 07-20-2012 influenza virus vacc ine, whole virus Palmira Ding MD Work Phone: [facility] Payers Date Payer Category Payer Medicare [employer] MEDICARE A ETNA MEDICARE O [id number] 2021-Present [phone] [address] [place] [address] O [id number] 2021 Medicare AETNA MEDICARE A ETNA MEDICARE O [id number] 2021-Present [phone] [address] [place] [address] O [id number] 2021 Medicare [id number] Social History Date Type Detail Facility Start: 11-10-2012 End: 09-18-2022 Tobacco smoking status NHIS Never smoked tobacco [facility] Work Phone: Start: 10-21-2021 End: 06-21-2023 Alcohol intake Current drinker of alcohol (finding) [facility] Start: 03-15-2018 History SDOH Alcohol Comment occasionally glass of wine [facility] Start: 1955 Sex Assigned At Not on file [facility] Start: 10-11-2021 End: 04-23-2022 Exposure to SARS-CoV-2 (event) Not sure [facility] Work Phone: Start: 11-10-2012 End: 09-18-2022 Tobacco use and exposure Smokeless tobacco non-user [facility] Start: 06-23-2020 End: 11-17-2022 History of Social function [facility] Work Phone: Start: 06-23-2020 End: 11-17-2022 Tobacco use panel [facility] Work Phone: Adult Depression Screening Assessment 0 [facility] Work Phone: Medical Equipment Procedure Code Equipment Code Equipment Origin al Text Equipment Identifier Dates Cement Simplex P Bone Radiopaque Full Dose Sterile - [id number] Start: 08-05-2015 Clinical Notes 02-25-2018 to 08-23-2023 Telephone Encounter - MARIUSZ Woods Kim E - 08/23/2023 10:20 AM ESTTelephone Encounter - Bela Patel LPN - 06/22/2023 9:55 AM Lizette Sharpe RN - 05/04/2023 10:28 AM EDT Note Date & Type Note Facility 08-23-2023 Miscellaneous Notes Patient has been identified by name and date of : No Patient phones for refill(s): Requested Prescriptions Pending Prescriptions Disp Refills fenofibrate nanocrystallized (TRICOR) 48 mg tablet [Pharmacy Med Name: FENOFIBRATE 48 MG TABLET] 90 tablet 3 Sig: take 1 tablet by mouth once daily Date of last office visit in primary care: 03/24/2023 Date of next office visit in primary care: 08/23/2023 Please advise. Thank you. Shira Woods LPN. documented in this encounter [facility] 06-22-2023 Miscellaneous Notes Recall letter done, Health maintenance updated, history updated. Bela Patel LPN documented in this encounter [facility] 06-22-2023 Miscellaneous Notes FOLLOW UP ENDOSCOPY - RESULTS AND RECOMMENDATIONS NAME: Herminia Godfrey [facility] NO.: [id number] : 1955 DATE: June 22, 2023 PRIMARY CARE PROVIDER: Palmira Ding MD Herminia Godfrey is a patient referred for endoscopy for a history of colon polyps. I performed lower endoscopy on May 04, 2023. The patient was found to have: Lower Endoscopy Impression: - One 4 mm polyp in the rectum, removed with a cold biopsy forceps. Resected and retrieved. - Diverticulosis in the sigmoid colon. - The entire examined colon is normal on direct and retroflexion views. Pathology demonstrated: FINAL DIAGNOSIS Rectal polyp, polypectomy: - Colonic mucosa with reactive change. - No evidence of adenomatous mucosa. - Multiple deeper sections are examined. IMPRESSION: Benign polyp PLAN: INSTRUCTIONS FOLLOWING A NORMAL COLONOSCOPY W/ FAMILY HX COLON CANCER 5YR I discussed with you the findings of your colonoscopy. Since there were no worrisome abnormalities, I recommend you undergo repeat endoscopic screening every 5 years due to your family history of colon cancer. This is the current recommendation for colon cancer screening. If you note bleeding, change in bowel habits, or other suspicious colon related symptoms before that time, those symptoms should be evaluated as necessary. The patient is instructed to follow-up with your primary care provider as needed I have instructed my staff to forward the above information to the patient and to the appropriate providers documented in this encounter [facility] 06-16-2023 Miscellaneous Notes Insurance is requesting a 90 day supply. Juani Dover LPN documented in this encounter [facility] 05-04-2023 Nurse Note Patient arrived laying on left side. Patient does not appear to be in any pain at this time patient reports no pain at this time. Abdomen appears to be nondistended and soft to palpation. Patient encouraged to belch and pass gas as needed. documented in this encounter [facility] 05-04-2023 History and physical note UPDATED PROCEDURAL SEDATION HISTORY AND PHYSICAL EXAMINATION SERVICE DATE: 05/04/2023 SERVICE TIME: 9:14 AM PHYSICAL EXAM MUST BE COMPLETED ON ADMISSION PROCEDURE: Procedure Indications: The History and Physical (completed in the past 30 days) has been reviewed and the patient has been examined. The contents accurately reflect the patient's condition with the following additions or revisions since the H&P was completed. ASA Class: ASA Class:: Patient with mild systemic disease Examination indicates no changes. AIRWAY: Airway Visualization of Uvula: Yes Mouth opening greater than 2 fingerbreadths: Yes Neck Full Range of Motion: Yes LUNGS: Lungs clear to auscultation CARDIAC: Regular rhythm,Regular rate Provisional Diagnosis/Treatment Plan: family history of colon cancer - colonoscopy SEDATION GOAL: Moderate This H&P can be found in the attached. SIGNATURE: Georgi Lua MD PATIENT NAME: Herminia Godfrey DATE: May 04, 2023 TIME: 9:14 AM Source Note - Georgi Lua MD - 05/04/2023 9:00 AM EDT Images from the original note were not included. HISTORY AND PHYSICAL Herminia Godfrey 1955 REFERRING PHYSICIAN: Georgi Lua MD CHIEF COMPLAINT: Consult (Colonoscopy 5 year ) HPI: The patient is a 67 year old female referred for endoscopy. Herminia notes no colon complaints currently. Patient denies any change in bowel habits, weight changes, blood in stools, black tarry stools or abdominal pain. NOTES family history of colon cancer. The patient notes no upper GI complaints. Herminia has undergone prior endoscopy. Last colonoscopy in February [address] Lua with removal of benign polyp, 5 year repeat recommended. Patient denies chest pain, shortness of breath or recent hospitalizations. Denies problems with sedation in the past. PAST MEDICAL HISTORY PAST MEDICAL HISTORY Diagnosis Date Arthritis Asthma Benign liver cyst Depression Glaucoma Hemorrhoids High cholesterol HTN (hypertension) Hypothyroidism Mental disorder anxiety Sciatica Snoring PAST SURGICAL HISTORY PAST SURGICAL HISTORY Procedure Laterality Date ARTHRP KNE CONDYLE&PLATU MEDIAL&LAT COMPARTMENTS Left 08/05/2015 Knee replacement, total COLONOSCOPY 2012 COLONOSCOPY FLX DX W/COLLJ SPEC WHEN PFRMD 10/08/2011 Repeat 5 years COLONOSCOPY FLX DX W/COLLJ SPEC WHEN PFRMD 03/15/2018 repeat in 5 years D&C (MISSED AB 1ST TRIMESTER) 1977 LAPAROSCOPIC APPENDECTOMY 12/15/15 Appendectomy [facility]. LIG/TRNSXJ FLP TUBE ABDL/VAG APPR UNI/BI 1987 PAST SURGICAL HISTORY OF left eye surgery for dry eye PAST SURGICAL HISTORY OF 2015 D&C PAST SURGICAL HISTORY OF 2015 tooth extraction TONSILLECTOMY HX CURRENT MEDICATIONS Current Outpatient Medications Medication Sig calcium citrate/vitamin D3 (CALCIUM CITRATE + ORAL) Take 1,000 mg by mouth once daily. levothyroxine (SYNTHROID) 75 mcg tablet take 1 tablet by mouth every morning ON AN EMPTY STOMACH albuterol HFA (VENTOLIN HFA) 90 mcg/actuation inhaler Inhale 2 Puffs as instructed every 4 hours as needed for wheezing/shortness of breath. ubidecarenone Q-10 (CO Q-10) 10 mg cap Take 5 capsules by mouth twice daily. fenofibrate nanocrystallized (TRICOR) 48 mg tablet Take 1 tablet by mouth once daily. lisinopril-hydroCHLOROthiazide (PRINZIDE,ZESTORETIC) 10-12.5 mg per tablet Take 1 tablet by mouth once daily. Biotin 10,000 mcg cap Take 1 capsule by mouth once daily. red yeast rice 600 mg tab Take 2 tablets by mouth once daily. ylls-ufdbja-few#3-P-pwcl-boron 007-681-04-1-3 mg tab Take 3 capsules by mouth once daily. ascorbic acid, vitamin C, (VITAMIN C) 500 mg tablet Take 1,000 mg by mouth once daily. calcium carbonate 500 mg calcium (1,250 mg) chewable tablet Take 1 tablet by mouth once daily. Blood Pressure Cuff - Home Use BLOOD PRESSURE CUFF FOR HOME USE. DX: LABILE BLOOD PRESSURE multivitamin ORAL tablet Take 1 tablet by mouth once daily. cyanocobalamin, vitamin B-12, 500 mcg chew Take 1 tablet by mouth as needed. cyclobenzaprine (FLEXERIL) 10 mg tablet Take 1 tablet by mouth three times daily as needed for Muscle Spasm. (Patient not taking: Reported on 03/01/2023) No current facility-administered medications for this visit. ALLERGIES: Ambien [Zolpidem Tartrate], Lipitor [Atorvastatin Calcium], Meloxicam, Naproxen Sodium, Relafen [Nabumetone], Scallops, Seasonal Allergies, Iwphzqd-Qfh-Rea Reductase Inhibitors, Toradol [Ketorolac Tromethamine], and Zofran [Ondansetron] PERSONAL HISTORY: SOCIAL HISTORY Social History Tobacco Use Smoking status: Never Smokeless tobacco: Never Vaping Use Vaping Use: Never used Substance Use Topics Alcohol use: Yes Comment: occasionally glass of wine Drug use: No FAMILY HISTORY: FAMILY HISTORY FAMILY HISTORY Problem Relation Age of Onset Hypertension Mother Colon Cancer Father Hypertension Father Cervical Cancer Sister other (Endometrial Cancer) Sister None Brother Heart Maternal Grandmother Heart Paternal Grandmother Heart Paternal Grandfather None Daughter None Daughter None Sister REVIEW OF SYMPTOMS: The review of systems data was entered by the nurse and reviewed by me Nursing Notes: Jacklyn Euceda LPN 03/01/2023 9:32 AM Signed REVIEW OF SYSTEMS: General: The patient denies fatigue, denies weight loss, denies weight gain, denies feeling hot, and denies feelings of cold. Eyes: The patient notes glaucoma, denies eye injury/surgery, wears glasses or contacts. Ear/Nose/Throat: The patient notes allergies, denies hayfever, denies ear infections, and notes bloody noses. Cardiovascular: The patient denies chest pain, denies heart disease, notes high blood pressure,denies cardiac stent, denies prior heart attack, denies irregular heart beat, notes high cholesterol, denies poor circulation, denies heart failure, other cardiac issues, denies claudication, denies cold feet, denies peripheral arterial stent. Respiratory: The patient denies tuberculosis, denies pneumonia, denies frequent cough, denies pulmonary embolism, denies shortness of breath, and denies coughing up blood, notes asthma Gastrointestinal: The patient notes difficulty swallowing, denies acid reflux, denies ulcers, denies vomiting, denies jaundice/hepatitis, notes gallbladder problems, denies black or tarry stools, notes hemorrhoids, denies bleeding from rectum, denies diverticulitis, denies constipation, denies diarrhea, denies loss of stool control, and denies hernias. Kidney/Bladder: The patient denies kidney stones, notes urine infections, and denies bloody urine. Skin: The patient denies a history of skin cancer, denies bleeding/changing moles, and denies a history of skin rash. Neurologic: The patient denies a history of epilepsy/convulsions, denies headaches, denies head/spinal injuries, and denies stroke/TIA. Psychiatric: The patient denies psychiatric medications, notes depression, and denies voices, denies substance abuse. Endocrine: The patient notes thyroid disorders, denies diabetes, and denies hormonal problems. Hematologic: The patient notes a history of bruising, denies bleeding, and denies anemia, denies blood clots. Infections: The patient notes a history of measles and mumps, denies rheumatic fever, and denies sexually transmitted diseases. Musculoskeletal: The patient denies back pain/injury, notes back problems, notes sciatica, notes knee/foot trouble, notes arthritis, or denies gout. When was patient's last Mammogram screening? 2022 Last Colonoscopy: 2017 Jacklyn Euceda LPN I have confirmed and edited as necessary, the PFSH and ROS obtained by others. Vargas Olea PA-C PHYSICAL EXAMINATION: General: The patient is 67 year old female, well nourished, well hydrated in no acute distress. The patient is oriented to time, place, and person. VITALS: Blood pressure 128/68, pulse 74, temperature 36.8 C (98.3 F), height 177.8 cm (5' 10 ), weight 77.6 kg (171 lb), last menstrual period 06/22/2011, SpO2 99 %. Body mass index is 24.54 kg/m . HEENT: Normal cephalic, ataumatic, pupils are equally round, sclera are anicteric, mucous membranes are moist, oropharynx is clear. Neck has no masses, asymmetry or lymphadenopathy. Respiratory: Clear to auscultation and percussion. Normal respiratory excursion and pattern. Cardiac: Examination is regular rate and rhythm. Normal S1/S2 Abdominal exam: Soft, nontender, with no palpable masses. No hepatosplenomegaly. No palpable hernias. Extremities: no clubbing, cyanosis or edema. No adenopathy. LABORATORY VALUES: As Noted RADIOLOGIC STUDIES: As Noted Assessment IMPRESSION: encounter for high-risk surveillance colonoscopy due to family history of colon cancer PLAN: I have reviewed my findings with the surgeon. Will plan for lower endoscopy. We discussed the risks and benefits of the planned endoscopy. I have informed the patient that complications can occur including failure to complete the endoscopy and perforation. The patient had the opportunity to ask questions concerning the planned endoscopy. My staff has also explained the procedure to the patient in understandable terms and has given the patient printed material concerning the procedure. The patient freely consents to surgery. I plan to use Golytely bowel preparation Diagnoses: (Z86.010) History of colonic polyps (primary encounter diagnosis) (Z12.11) Encounter for screening for malignant neoplasm of colon I spent a total of 24 minutes on the date of the service which included preparing to see the patient, vkna-ma-kken patient care, completing clinical documentation, obtaining and/or reviewing separately obtained history, performing a medically appropriate examination, counseling and educating the patient/family/caregiver, and ordering medications, tests, or procedures. Vargas Olea PA-C Images from the original note were not included. HISTORY AND PHYSICAL Herminia Godfrey 1955 REFERRING PHYSICIAN: Georgi Lua MD CHIEF COMPLAINT: Consult (Colonoscopy 5 year ) HPI: The patient is a 67 year old female referred for endoscopy. Herminia notes no colon complaints currently. Patient denies any change in bowel habits, weight changes, blood in stools, black tarry stools or abdominal pain. NOTES family history of colon cancer. The patient notes no upper GI complaints. Herminia has undergone prior endoscopy. Last colonoscopy in February [address] Lua with removal of benign polyp, 5 year repeat recommended. Patient denies chest pain, shortness of breath or recent hospitalizations. Denies problems with sedation in the past. PAST MEDICAL HISTORY PAST MEDICAL HISTORY Diagnosis Date Arthritis Asthma Benign liver cyst Depression Glaucoma Hemorrhoids High cholesterol HTN (hypertension) Hypothyroidism Mental disorder anxiety Sciatica Snoring PAST SURGICAL HISTORY PAST SURGICAL HISTORY Procedure Laterality Date ARTHRP KNE CONDYLE&PLATU MEDIAL&LAT COMPARTMENTS Left 08/05/2015 Knee replacement, total COLONOSCOPY 2012 COLONOSCOPY FLX DX W/COLLJ SPEC WHEN PFRMD 10/08/2011 Repeat 5 years COLONOSCOPY FLX DX W/COLLJ SPEC WHEN PFRMD 03/15/2018 repeat in 5 years D&C (MISSED AB 1ST TRIMESTER) 1977 LAPAROSCOPIC APPENDECTOMY 12/15/15 Appendectomy [facility]. LIG/TRNSXJ FLP TUBE ABDL/VAG APPR UNI/BI 1987 PAST SURGICAL HISTORY OF left eye surgery for dry eye PAST SURGICAL HISTORY OF 2015 D&C PAST SURGICAL HISTORY OF 2015 tooth extraction TONSILLECTOMY HX CURRENT MEDICATIONS Current Outpatient Medications Medication Sig calcium citrate/vitamin D3 (CALCIUM CITRATE + ORAL) Take 1,000 mg by mouth once daily. levothyroxine (SYNTHROID) 75 mcg tablet take 1 tablet by mouth every morning ON AN EMPTY STOMACH albuterol HFA (VENTOLIN HFA) 90 mcg/actuation inhaler Inhale 2 Puffs as instructed every 4 hours as needed for wheezing/shortness of breath. ubidecarenone Q-10 (CO Q-10) 10 mg cap Take 5 capsules by mouth twice daily. fenofibrate nanocrystallized (TRICOR) 48 mg tablet Take 1 tablet by mouth once daily. lisinopril-hydroCHLOROthiazide (PRINZIDE,ZESTORETIC) 10-12.5 mg per tablet Take 1 tablet by mouth once daily. Biotin 10,000 mcg cap Take 1 capsule by mouth once daily. red yeast rice 600 mg tab Take 2 tablets by mouth once daily. npsm-vzkvco-lbh#9-Y-ljys-boron [id number] mg tab Take 3 capsules by mouth once daily. ascorbic acid, vitamin C, (VITAMIN C) 500 mg tablet Take 1,000 mg by mouth once daily. calcium carbonate 500 mg calcium (1,250 mg) chewable tablet Take 1 tablet by mouth once daily. Blood Pressure Cuff - Home Use BLOOD PRESSURE CUFF FOR HOME USE. DX: LABILE BLOOD PRESSURE multivitamin ORAL tablet Take 1 tablet by mouth once daily. cyanocobalamin, vitamin B-12, 500 mcg chew Take 1 tablet by mouth as needed. cyclobenzaprine (FLEXERIL) 10 mg tablet Take 1 tablet by mouth three times daily as needed for Muscle Spasm. (Patient not taking: Reported on 03/01/2023) No current facility-administered medications for this visit. ALLERGIES: Ambien [Zolpidem Tartrate], Lipitor [Atorvastatin Calcium], Meloxicam, Naproxen Sodium, Relafen [Nabumetone], Scallops, Seasonal Allergies, Abolxau-Evg-Kwk Reductase Inhibitors, Toradol [Ketorolac Tromethamine], and Zofran [Ondansetron] PERSONAL HISTORY: SOCIAL HISTORY Social History Tobacco Use Smoking status: Never Smokeless tobacco: Never Vaping Use Vaping Use: Never used Substance Use Topics Alcohol use: Yes Comment: occasionally glass of wine Drug use: No FAMILY HISTORY: FAMILY HISTORY FAMILY HISTORY Problem Relation Age of Onset Hypertension Mother Colon Cancer Father Hypertension Father Cervical Cancer Sister other (Endometrial Cancer) Sister None Brother Heart Maternal Grandmother Heart Paternal Grandmother Heart Paternal Grandfather None Daughter None Daughter None Sister REVIEW OF SYMPTOMS: The review of systems data was entered by the nurse and reviewed by me Nursing Notes: Jacklyn Euceda LPN 03/01/2023 9:32 AM Signed REVIEW OF SYSTEMS: General: The patient denies fatigue, denies weight loss, denies weight gain, denies feeling hot, and denies feelings of cold. Eyes: The patient notes glaucoma, denies eye injury/surgery, wears glasses or contacts. Ear/Nose/Throat: The patient notes allergies, denies hayfever, denies ear infections, and notes bloody noses. Cardiovascular: The patient denies chest pain, denies heart disease, notes high blood pressure,denies cardiac stent, denies prior heart attack, denies irregular heart beat, notes high cholesterol, denies poor circulation, denies heart failure, other cardiac issues, denies claudication, denies cold feet, denies peripheral arterial stent. Respiratory: The patient denies tuberculosis, denies pneumonia, denies frequent cough, denies pulmonary embolism, denies shortness of breath, and denies coughing up blood, notes asthma Gastrointestinal: The patient notes difficulty swallowing, denies acid reflux, denies ulcers, denies vomiting, denies jaundice/hepatitis, notes gallbladder problems, denies black or tarry stools, notes hemorrhoids, denies bleeding from rectum, denies diverticulitis, denies constipation, denies diarrhea, denies loss of stool control, and denies hernias. Kidney/Bladder: The patient denies kidney stones, notes urine infections, and denies bloody urine. Skin: The patient denies a history of skin cancer, denies bleeding/changing moles, and denies a history of skin rash. Neurologic: The patient denies a history of epilepsy/convulsions, denies headaches, denies head/spinal injuries, and denies stroke/TIA. Psychiatric: The patient denies psychiatric medications, notes depression, and denies voices, denies substance abuse. Endocrine: The patient notes thyroid disorders, denies diabetes, and denies hormonal problems. Hematologic: The patient notes a history of bruising, denies bleeding, and denies anemia, denies blood clots. Infections: The patient notes a history of measles and mumps, denies rheumatic fever, and denies sexually transmitted diseases. Musculoskeletal: The patient denies back pain/injury, notes back problems, notes sciatica, notes knee/foot trouble, notes arthritis, or denies gout. When was patient's last Mammogram screening? 2022 Last Colonoscopy: 2017 Jacklyn Euceda LPN I have confirmed and edited as necessary, the PFSH and ROS obtained by others. Vargas Olea PA-C PHYSICAL EXAMINATION: General: The patient is 67 year old female, well nourished, well hydrated in no acute distress. The patient is oriented to time, place, and person. VITALS: Blood pressure 128/68, pulse 74, temperature 36.8 C (98.3 F), height 177.8 cm (5' 10 ), weight 77.6 kg (171 lb), last menstrual period 06/22/2011, SpO2 99 %. Body mass index is 24.54 kg/m . HEENT: Normal cephalic, ataumatic, pupils are equally round, sclera are anicteric, mucous membranes are moist, oropharynx is clear. Neck has no masses, asymmetry or lymphadenopathy. Respiratory: Clear to auscultation and percussion. Normal respiratory excursion and pattern. Cardiac: Examination is regular rate and rhythm. Normal S1/S2 Abdominal exam: Soft, nontender, with no palpable masses. No hepatosplenomegaly. No palpable hernias. Extremities: no clubbing, cyanosis or edema. No adenopathy. LABORATORY VALUES: As Noted RADIOLOGIC STUDIES: As Noted Assessment IMPRESSION: encounter for high-risk surveillance colonoscopy due to family history of colon cancer PLAN: I have reviewed my findings with the surgeon. Will plan for lower endoscopy. We discussed the risks and benefits of the planned endoscopy. I have informed the patient that complications can occur including failure to complete the endoscopy and perforation. The patient had the opportunity to ask questions concerning the planned endoscopy. My staff has also explained the procedure to the patient in understandable terms and has given the patient printed material concerning the procedure. The patient freely consents to surgery. I plan to use Golytely bowel preparation Diagnoses: (Z86.010) History of colonic polyps (primary encounter diagnosis) (Z12.11) Encounter for screening for malignant neoplasm of colon I spent a total of 24 minutes on the date of the service which included preparing to see the patient, ngfl-xk-bpiq patient care, completing clinical documentation, obtaining and/or reviewing separately obtained history, performing a medically appropriate examination, counseling and educating the patient/family/caregiver, and ordering medications, tests, or procedures. Vargas Olea PA-C documented in this encounter [facility] 03-24-2023 Note HNO ID: [id number] Author: Norma Fink APRN.C[employer]ATION ATTENDANT Service: ? Author Type: Nurse Practitioner Type: Progress Notes Filed: 03/24/2023 7:09 PM Note Text: CC: Patient presents with: Recheck: 6 month follow up HPI Herminia Godfrey is a 67 year old female who presents today for routine follow up. Hypothyroidism: Takes medication as ordered. Denies any abnormal changes in energy or weight. Asthma: well controlled on current treatment. Only needs albuterol inhaler during high pollen in Spring or high heat. Denies any recent exacerbations, steroid usage, cough, wheezing, or shortness of breath. HTN: Ms. Godfrey indicates that she is feeling well and denies any symptoms referable to elevated blood pressure. Specifically denies headache, chest pain, palpitations, dyspnea, and peripheral edema. Patient denies any side effects of her medication(s) and is compliant with their regimen. She does not check BP's generally. Herminia works out regularly 6 times per week with walking on treadmill. She watches her diet for sodium, low fat and low cholesterol most of the time. Has been actively working to lose weight. Last 3 Encounter BP Readings: Date: BP: 03/24/2023 140/82 03/01/2023 128/68 11/17/2022 128/88 Takes a vit d supplement she feels is 10,000 units. REVIEW OF SYSTEMS General: no fevers, no chills, no night sweats, no recurrent infections, no change in appetite, no change in energy, and no significant changes in weight Respiratory: no cough, no wheezing, no shortness of breath, no hemoptysis Cardiovascular: no chest pain, no chest pressure, no palpitations, and no swelling Endocrine: no fatigue, no polyuria, no polyphagia, and no polydipsia Neurologic: No headache, weakness, numbness, tingling, dizziness, memory loss, syncope. PAST MEDICAL HISTORY Diagnosis Date Arthritis Asthma Benign liver cyst Depression Glaucoma Hemorrhoids High cholesterol HTN (hypertension) Hypothyroidism Mental disorder anxiety Sciatica Snoring PAST SURGICAL HISTORY Procedure Laterality Date ARTHRP KNE CONDYLEANDPLATU MEDIALANDLAT COMPARTMENTS Left 08/05/2015 Knee replacement, total COLONOSCOPY 2012 COLONOSCOPY FLX DX W/COLLJ SPEC WHEN PFRMD 10/08/2011 Repeat 5 years COLONOSCOPY FLX DX W/COLLJ SPEC WHEN PFRMD 03/15/2018 repeat in 5 years [facility] (MISSED AB 1ST TRIMESTER) 1977 LAPAROSCOPIC APPENDECTOMY 12/15/15 Appendectomy [facility]. LIG/TRNSXJ FLP TUBE ABDL/VAG APPR UNI/BI 1987 PAST SURGICAL HISTORY OF left eye surgery for dry eye PAST SURGICAL HISTORY OF 2014 [facility] PAST SURGICAL HISTORY OF 2014 tooth extraction TONSILLECTOMY HX ALLERGIES Ambien [Zolpidem Tartrate], Lipitor [Atorvastatin Calcium], Meloxicam, Naproxen Sodium, Relafen [Nabumetone], Scallops, Seasonal Allergies, Tzdapmz-Jqe-Fdf Reductase Inhibitors, Toradol [Ketorolac Tromethamine], and Zofran [Ondansetron] MEDICATIONS calcium citrate/vitamin D3 (CALCIUM CITRATE + ORAL) Take 1,000 mg by mouth once daily. levothyroxine (SYNTHROID) 75 mcg tablet take 1 tablet by mouth every morning ON AN EMPTY STOMACH albuterol HFA (VENTOLIN HFA) 90 mcg/actuation inhaler Inhale 2 Puffs as instructed every 4 hours as needed for wheezing/shortness of breath. ubidecarenone Q-10 (CO Q-10) 10 mg cap Take 5 capsules by mouth twice daily. fenofibrate nanocrystallized (TRICOR) 48 mg tablet Take 1 tablet by mouth once daily. lisinopril-hydroCHLOROthiazide (PRINZIDE,ZESTORETIC) 10-12.5 mg per tablet Take 1 tablet by mouth once daily. Biotin 10,000 mcg cap Take 1 capsule by mouth once daily. red yeast rice 600 mg tab Take 2 tablets by mouth once daily. bajd-lcaysu-fjr#2-Y-rgbk-boron [id number] mg tab Take 3 capsules by mouth once daily. cyclobenzaprine (FLEXERIL) 10 mg tablet Take 1 tablet by mouth three times daily as needed for Muscle Spasm. (Patient not taking: Reported on 03/01/2023) ascorbic acid, vitamin C, (VITAMIN C) 500 mg tablet Take 1,000 mg by mouth once daily. calcium carbonate 500 mg calcium (1,250 mg) chewable tablet Take 1 tablet by mouth once daily. Blood Pressure Cuff - Home Use BLOOD PRESSURE CUFF FOR HOME USE. DX: LABILE BLOOD PRESSURE multivitamin ORAL tablet Take 1 tablet by mouth once daily. cyanocobalamin, vitamin B-12, 500 mcg chew Take 1 tablet by mouth as needed. FAMILY HISTORY Problem Relation Age of Onset Hypertension Mother Colon Cancer Father Hypertension Father Cervical Cancer Sister other (Endometrial Cancer) Sister None Brother Heart Maternal Grandmother Heart Paternal Grandmother Heart Paternal Grandfather None Daughter None Daughter None Sister Social History Tobacco Use Smoking status: Never Smokeless tobacco: Never Vaping Use Vaping Use: Never used Substance Use Topics Alcohol use: Yes Comment: occasionally glass of wine Drug use: No PHYSICAL EXAM BP 140/82 Pulse 66 Resp 16 Wt 75.8 kg (167 lb) LMP 06/22/2011 (more content not included)... [facility] 03-24-2023 Instructions Norma Fink APRN.CNP - 03/24/2023 10:09 AM EDT Can order singulair/montelukast for any increased usage of albuterol and increase in asthma related symptoms. documented in this encounter [facility] 03-24-2023 History of Present illness Narrative CC: Patient presents with: Recheck: 6 month follow up HPI Herminia Godfrey is a 67 year old female who presents today for routine follow up. Hypothyroidism: Takes medication as ordered. Denies any abnormal changes in energy or weight. Asthma: well controlled on current treatment. Only needs albuterol inhaler during high pollen in Spring or high heat. Denies any recent exacerbations, steroid usage, cough, wheezing, or shortness of breath. HTN: Ms. Godfrey indicates that she is feeling well and denies any symptoms referable to elevated blood pressure. Specifically denies headache, chest pain, palpitations, dyspnea, and peripheral edema. Patient denies any side effects of her medication(s) and is compliant with their regimen. She does not check BP's generally. Herminia works out regularly 6 times per week with walking on treadmill. She watches her diet for sodium, low fat and low cholesterol most of the time. Has been actively working to lose weight. Last 3 Encounter BP Readings: Date: BP: 03/24/2023 140/82 03/01/2023 128/68 11/17/2022 128/88 Takes a vit d supplement she feels is 10,000 units. REVIEW OF SYSTEMS General: no fevers, no chills, no night sweats, no recurrent infections, no change in appetite, no change in energy, and no significant changes in weight Respiratory: no cough, no wheezing, no shortness of breath, no hemoptysis Cardiovascular: no chest pain, no chest pressure, no palpitations, and no swelling Endocrine: no fatigue, no polyuria, no polyphagia, and no polydipsia Neurologic: No headache, weakness, numbness, tingling, dizziness, memory loss, syncope. PAST MEDICAL HISTORY Diagnosis Date Arthritis Asthma Benign liver cyst Depression Glaucoma Hemorrhoids High cholesterol HTN (hypertension) Hypothyroidism Mental disorder anxiety Sciatica Snoring PAST SURGICAL HISTORY Procedure Laterality Date ARTHRP KNE CONDYLE&PLATU MEDIAL&LAT COMPARTMENTS Left 08/05/2015 Knee replacement, total COLONOSCOPY 2012 COLONOSCOPY FLX DX W/COLLJ SPEC WHEN PFRMD 10/08/2011 Repeat 5 years COLONOSCOPY FLX DX W/COLLJ SPEC WHEN PFRMD 03/15/2018 repeat in 5 years D&C (MISSED AB 1ST TRIMESTER) 1977 LAPAROSCOPIC APPENDECTOMY 12/15/15 Appendectomy [facility]. LIG/TRNSXJ FLP TUBE ABDL/VAG APPR UNI/BI 1987 PAST SURGICAL HISTORY OF left eye surgery for dry eye PAST SURGICAL HISTORY OF 2014 D&C PAST SURGICAL HISTORY OF 2014 tooth extraction TONSILLECTOMY HX ALLERGIES Ambien [Zolpidem Tartrate], Lipitor [Atorvastatin Calcium], Meloxicam, Naproxen Sodium, Relafen [Nabumetone], Scallops, Seasonal Allergies, Ztnygnz-Onq-Rgc Reductase Inhibitors, Toradol [Ketorolac Tromethamine], and Zofran [Ondansetron] MEDICATIONS calcium citrate/vitamin D3 (CALCIUM CITRATE + ORAL) Take 1,000 mg by mouth once daily. levothyroxine (SYNTHROID) 75 mcg tablet take 1 tablet by mouth every morning ON AN EMPTY STOMACH albuterol HFA (VENTOLIN HFA) 90 mcg/actuation inhaler Inhale 2 Puffs as instructed every 4 hours as needed for wheezing/shortness of breath. ubidecarenone Q-10 (CO Q-10) 10 mg cap Take 5 capsules by mouth twice daily. fenofibrate nanocrystallized (TRICOR) 48 mg tablet Take 1 tablet by mouth once daily. lisinopril-hydroCHLOROthiazide (PRINZIDE,ZESTORETIC) 10-12.5 mg per tablet Take 1 tablet by mouth once daily. Biotin 10,000 mcg cap Take 1 capsule by mouth once daily. red yeast rice 600 mg tab Take 2 tablets by mouth once daily. clru-dwcnqh-cdf#2-Y-rsdi-boron [id number] mg tab Take 3 capsules by mouth once daily. cyclobenzaprine (FLEXERIL) 10 mg tablet Take 1 tablet by mouth three times daily as needed for Muscle Spasm. (Patient not taking: Reported on 03/01/2023) ascorbic acid, vitamin C, (VITAMIN C) 500 mg tablet Take 1,000 mg by mouth once daily. calcium carbonate 500 mg calcium (1,250 mg) chewable tablet Take 1 tablet by mouth once daily. Blood Pressure Cuff - Home Use BLOOD PRESSURE CUFF FOR HOME USE. DX: LABILE BLOOD PRESSURE multivitamin ORAL tablet Take 1 tablet by mouth once daily. cyanocobalamin, vitamin B-12, 500 mcg chew Take 1 tablet by mouth as needed. FAMILY HISTORY Problem Relation Age of Onset Hypertension Mother Colon Cancer Father Hypertension Father Cervical Cancer Sister other (Endometrial Cancer) Sister None Brother Heart Maternal Grandmother Heart Paternal Grandmother Heart Paternal Grandfather None Daughter None Daughter None Sister Social History Tobacco Use Smoking status: Never Smokeless tobacco: Never Vaping Use Vaping Use: Never used Substance Use Topics Alcohol use: Yes Comment: occasionally glass of wine Drug use: No PHYSICAL EXAM BP 140/82 Pulse 66 Resp 16 Wt 75.8 kg (167 lb) LMP 06/22/2011 SpO2 100% BMI 23.96 kg/m General Appearance: well appearing, in no acute distress, alert Skin: Skin color, texture, turgor normal for age; Eyes: conjunctiva pink and moist, no icterus, sclera white, non-injected Neck: Thyroid normal size and symmetric without palpable nodules, Neck supple, No adenopathy Lymph nodes: No cervical lymphadenopathy and No supraclavicular lymphadenopathy Lungs: Lungs clear to auscultation. No wheezing, rhonchi, rales. Heart: RRR without murmur, gallop, or rubs. No ectopy Health maintenance reviewed with patient: SPIROMETRY Never done DTAP,TDAP,TD(1 - Tdap) Never done SHINGRIX VACCINE(1 of 2) Never done COVID-19 VACCINE(2 - Booster for Yael series) due on 09/22/2021 ADVANCE DIRECTIVE DISCUSSION Never done PNEUMOCOCCAL: 65+(2 - PCV) due on 10/21/2022 COLORECTAL CANCER SCREENING due on 03/15/2023 INFLUENZA(1) due on 03/19/2023 ANNUAL PCP TEAM CHRONIC DISEASE VISIT due on 09/19/2023 MAMMOGRAM due on 10/31/2023 BP CONTROLLED (<130/80) due on 03/01/2024 DIABETES SCREEN due on 03/20/2026 LIPID SCREEN due on 09/25/2027 BONE DENSITY Completed DEPRESSION ASSESSMENT Completed HEPATITIS C SCREENING Completed PAP TESTING Discontinued DATA REVIEWED: Most recent labs ASSESSMENT/PLAN: 1. Acquired hypothyroidism - ICD9: 244.9, ICD10: E03.9 (primary diagnosis) - Instructed patient on importance of taking on an empty stomach either first thing in the morning or at bedtime. - asymptomatic and TSH in acceptable ranges. 2. Essential hypertension - ICD9: 401.9, ICD10: I10 - all BP readings over the last few years have been at goal but no home BP readings. Possibly result of anxiety at seeing a new provider. Needs to monitor at home - Continue current medications - Recommend home blood pressure monitoring, to bring results to next visit - Encouraged sodium restriction, DASH or Mediterranean diet - Recommend regular aerobic exercise 3. Mixed hyperlipidemia - ICD9: 272.2, ICD10: E78.2 - Control undetermined, due for labs - Continue current medications - Counseled on healthy diet and regular exercise - Discussed need for and benefit of weight loss. BMI 23.96 kg/(m^2) - LIPID PANEL BASIC 4. Mild intermittent asthmatic bronchitis without complication - ICD9: 493.90, ICD10: J45.20 - Mild intermittent asthma stable - Continue current medications - Avoidance of triggers recommended - discussed possibly adding Singulair for short term use in the Spring to help decrease asthma related symptoms. Declines at this time but will call office if she decides she would like to try singulair. 5. Vitamin D deficiency - ICD9: 268.9, ICD10: E55.9 - VITAMIN D 25 HYDROXY Prescription instructions reviewed with patient as applicable. Potential red flag symptoms discussed with the patient. Reviewed appropriate action plan to take if red flag symptoms occur. Patient agreeable to treatment plan. Norma Fink APRN.FRANCO documented in this encounter [facility] 03-09-2023 Note Patient Outreach (IN [facility]) HERMINIA GODFREY ([id number]) 1955 F Date Time Provider Department 03/09/23 [facility] DING During your visit today, we recorded the following information about you: Allergies As of Date: 03/09/2023 Noted Allergy Reaction AMBIEN (ZOLPIDEM TARTRATE) 04/11/2018 5 - Intolerance Comments: kept patient up all night long LIPITOR (ATORVASTATIN CALCIUM) 11/13/2013 14 - Other: See Comments Comments: Muscle ache. MELOXICAM 11/08/2014 8 - GI Upset NAPROXEN SODIUM 11/12/2014 8 - GI Upset RELAFEN (NABUMETONE) 01/07/2015 14 - Other: See Comments Comments: Nose bleeds SCALLOPS 08/25/2011 14 - Other: See Comments Comments: Itchy throat SEASONAL ALLERGIES 08/25/2011 14 - Other: See Comments [id number] REDUCTASE INHIBIT*11/08/2014 14 - Other: See Comments Comments: Myalgia and arthralgia TORADOL (KETOROLAC TROMETHAMINE) 09/06/2015 14 - Other: See Comments Comments: Nausea and decreased blood pressure ZOFRAN (ONDANSETRON) 02/19/2020 14 - Other: See Comments Comments: Lowered her BP significantly both the times it was used on her. Date Reviewed: 03/01/2023 Reviewed by: Vargas Olea PA-C - Fully Assessed Visit Diagnoses:Essential hypertension [I10] Acquired hypothyroidism [E03.9] Medication management [Z79.899] Order(s):BASIC METABOLIC PNL [SQBMP] Order #: [id number] FUTURE TSH BLD [SQTSH] Order #: [id number] FUTURE CBC [SQCBC] Order #: [id number] FUTURE AST/SGOT BLD [SQAST] Order #: [id number] FUTURE ALT/SGPT [SQALT] Order #: [id number] FUTURE Prescriptions as of 03/12/2023 - calcium citrate/vitamin D3 (CALCIUM CITRATE + ORAL) Take 1,000 mg by mouth once daily. - levothyroxine (SYNTHROID) 75 mcg tablet take 1 tablet by mouth every morning ON AN EMPTY STOMACH - albuterol HFA (VENTOLIN HFA) 90 mcg/actuation inhaler Inhale 2 Puffs as instructed every 4 hours as needed for wheezing/shortness of breath. - ubidecarenone Q-10 (CO Q-10) 10 mg cap Take 5 capsules by mouth twice daily. - fenofibrate nanocrystallized (TRICOR) 48 mg tablet Take 1 tablet by mouth once daily. - lisinopril-hydroCHLOROthiazide (PRINZIDE,ZESTORETIC) 10-12.5 mg per tablet Take 1 tablet by mouth once daily. - Biotin 10,000 mcg cap Take 1 capsule by mouth once daily. - red yeast rice 600 mg tab Take 2 tablets by mouth once daily. - eymd-lfjhrp-dtt#3-A-oqhw-boron 427-402-50-1-3 mg tab Take 3 capsules by mouth once daily. - cyclobenzaprine (FLEXERIL) 10 mg tablet Take 1 tablet by mouth three times daily as needed for Muscle Spasm. - ascorbic acid, vitamin C, (VITAMIN C) 500 mg tablet Take 1,000 mg by mouth once daily. - calcium carbonate 500 mg calcium (1,250 mg) chewable tablet Take 1 tablet by mouth once daily. - Blood Pressure Cuff - Home Use BLOOD PRESSURE CUFF FOR HOME USE. DX: LABILE BLOOD PRESSURE - multivitamin ORAL tablet Take 1 tablet by mouth once daily. - cyanocobalamin, vitamin B-12, 500 mcg chew Take 1 tablet by mouth as needed. Meds Comments as of 08/10/2015: no interactions 08-10-15 Problem List As Of Date 03/09/2023 Noted Resolved Mixed hyperlipidemia [E78.2] 08/25/2011 Acquired hypothyroidism [E03.9] 08/25/2011 Essential hypertension [I10] 08/25/2011 Asthmatic bronchitis [J45.909] 08/25/2011 Family history of colon cancer [Z80.0] 10/15/2011 Abnormal mammogram, unspecified [R92.8] 11/09/2012 04/09/2017 Intraductal papilloma [D36.9] 11/14/2012 Primary osteoarthritis involving multiple joint*07/05/2015 S/P total knee replacement using cement [Z96.65*10/17/2015 Adjustment insomnia [F51.02] 03/06/2016 Anxiety neurosis [F41.1] 07/01/2016 Varicose vein of leg [I83.90] 04/09/2017 Altered bowel habits [R19.4] 02/25/2018 08/19/2019 Vitamin D deficiency [E55.9] 08/19/2019 Sciatica of left side [M54.32] 08/19/2019 Hypertriglyceridemia [E78.1] 08/19/2019 Encounter Status:Closed by [employer] bi[employer]USER on 03/12/23 [facility] 03-01-2023 Note HNO ID: [id number] Author: Vargas Olea PA-C Service: ? Author Type: Physician Production Cloth Cutter Type: Progress Notes Filed: 03/01/2023 10:16 AM Note Text: HISTORY AND PHYSICAL Herminia Godfrey 1955 REFERRING PHYSICIAN: Georgi Lua MD CHIEF COMPLAINT: Consult (Colonoscopy 5 year ) HPI: The patient is a 67 year old female referred for endoscopy. Herminia notes no colon complaints currently. Patient denies any change in bowel habits, weight changes, blood in stools, black tarry stools or abdominal pain. NOTES family history of colon cancer. The patient notes no upper GI complaints. Herminia has undergone prior endoscopy. Last colonoscopy in February [address] Lua with removal of benign polyp, 5 year repeat recommended. Patient denies chest pain, shortness of breath or recent hospitalizations. Denies problems with sedation in the past. PAST MEDICAL HISTORY Diagnosis Date Arthritis Asthma Benign liver cyst Depression Glaucoma Hemorrhoids High cholesterol HTN (hypertension) Hypothyroidism Mental disorder anxiety Sciatica Snoring PAST SURGICAL HISTORY Procedure Laterality Date ARTHRP KNE CONDYLEANDPLATU MEDIALANDLAT COMPARTMENTS Left 08/05/2015 Knee replacement, total COLONOSCOPY 2012 COLONOSCOPY FLX DX W/COLLJ SPEC WHEN PFRMD 10/08/2011 Repeat 5 years COLONOSCOPY FLX DX W/COLLJ SPEC WHEN PFRMD 03/15/2018 repeat in 5 years [facility] (MISSED AB 1ST TRIMESTER) 1977 LAPAROSCOPIC APPENDECTOMY 12/15/15 Appendectomy [facility]. LIG/TRNSXJ FLP TUBE ABDL/VAG APPR UNI/BI 1987 PAST SURGICAL HISTORY OF left eye surgery for dry eye PAST SURGICAL HISTORY OF 2014 [facility] PAST SURGICAL HISTORY OF 2014 tooth extraction TONSILLECTOMY HX Current Outpatient Medications Medication Sig calcium citrate/vitamin D3 (CALCIUM CITRATE + ORAL) Take 1,000 mg by mouth once daily. levothyroxine (SYNTHROID) 75 mcg tablet take 1 tablet by mouth every morning ON AN EMPTY STOMACH albuterol HFA (VENTOLIN HFA) 90 mcg/actuation inhaler Inhale 2 Puffs as instructed every 4 hours as needed for wheezing/shortness of breath. ubidecarenone Q-10 (CO Q-10) 10 mg cap Take 5 capsules by mouth twice daily. fenofibrate nanocrystallized (TRICOR) 48 mg tablet Take 1 tablet by mouth once daily. lisinopril-hydroCHLOROthiazide (PRINZIDE,ZESTORETIC) 10-12.5 mg per tablet Take 1 tablet by mouth once daily. Biotin 10,000 mcg cap Take 1 capsule by mouth once daily. red yeast rice 600 mg tab Take 2 tablets by mouth once daily. rxfa-ngjvyf-jqk#1-D-aujc-boron [id number] mg tab Take 3 capsules by mouth once daily. ascorbic acid, vitamin C, (VITAMIN C) 500 mg tablet Take 1,000 mg by mouth once daily. calcium carbonate 500 mg calcium (1,250 mg) chewable tablet Take 1 tablet by mouth once daily. Blood Pressure Cuff - Home Use BLOOD PRESSURE CUFF FOR HOME USE. DX: LABILE BLOOD PRESSURE multivitamin ORAL tablet Take 1 tablet by mouth once daily. cyanocobalamin, vitamin B-12, 500 mcg chew Take 1 tablet by mouth as needed. cyclobenzaprine (FLEXERIL) 10 mg tablet Take 1 tablet by mouth three times daily as needed for Muscle Spasm. (Patient not taking: Reported on 03/01/2023) No current facility-administered medications for this visit. ALLERGIES: Ambien [Zolpidem Tartrate], Lipitor [Atorvastatin Calcium], Meloxicam, Naproxen Sodium, Relafen [Nabumetone], Scallops, Seasonal Allergies, Xikywrk-Kfp-Pjk Reductase Inhibitors, Toradol [Ketorolac Tromethamine], and Zofran [Ondansetron] PERSONAL HISTORY: Social History Tobacco Use Smoking status: Never Smokeless tobacco: Never Vaping Use Vaping Use: Never used Substance Use Topics Alcohol use: Yes Comment: occasionally glass of wine Drug use: No FAMILY HISTORY: FAMILY HISTORY Problem Relation Age of Onset Hypertension Mother Colon Cancer Father Hypertension Father Cervical Cancer Sister other (Endometrial Cancer) Sister None Brother Heart Maternal Grandmother Heart Paternal Grandmother Heart Paternal Grandfather None Daughter None Daughter None Sister REVIEW OF SYMPTOMS: The review of systems data was entered by the nurse and reviewed by ny Nursing Notes: Jacklyn Euceda LPN 03/01/2023 9:32 AM Signed REVIEW OF SYSTEMS: General: The patient denies fatigue, denies weight loss, denies weight gain, denies feeling hot, and denies feelings of cold. Eyes: The patient notes glaucoma, denies eye injury/surgery, wears glasses or contacts. Ear/Nose/Throat: The patient notes allergies, denies hayfever, denies ear infections, and notes bloody noses. Cardiovascular: The patient denies chest pain, denies heart disease, notes high blood pressure,denies cardiac stent, denies prior heart attack, denies irregular heart beat, notes high cholesterol, denies poor circulation, denies heart failure, other cardiac issues, denies claudication, denies cold feet, denies peripheral arterial stent. Respiratory: The p (more content not included)... [facility] 03-01-2023 History of Present illness Narrative HISTORY AND PHYSICAL Herminia Godfrey 1955 REFERRING PHYSICIAN: Georgi Lua MD CHIEF COMPLAINT: Consult (Colonoscopy 5 year ) HPI: The patient is a 67 year old female referred for endoscopy. Herminia notes no colon complaints currently. Patient denies any change in bowel habits, weight changes, blood in stools, black tarry stools or abdominal pain. NOTES family history of colon cancer. The patient notes no upper GI complaints. Herminia has undergone prior endoscopy. Last colonoscopy in February [address] Lua with removal of benign polyp, 5 year repeat recommended. Patient denies chest pain, shortness of breath or recent hospitalizations. Denies problems with sedation in the past. PAST MEDICAL HISTORY Diagnosis Date Arthritis Asthma Benign liver cyst Depression Glaucoma Hemorrhoids High cholesterol HTN (hypertension) Hypothyroidism Mental disorder anxiety Sciatica Snoring PAST SURGICAL HISTORY Procedure Laterality Date ARTHRP KNE CONDYLE&PLATU MEDIAL&LAT COMPARTMENTS Left 08/05/2015 Knee replacement, total COLONOSCOPY 2012 COLONOSCOPY FLX DX W/COLLJ SPEC WHEN PFRMD 10/08/2011 Repeat 5 years COLONOSCOPY FLX DX W/COLLJ SPEC WHEN PFRMD 03/15/2018 repeat in 5 years [facility] (MISSED AB 1ST TRIMESTER) 1977 LAPAROSCOPIC APPENDECTOMY 12/15/15 Appendectomy [facility]. LIG/TRNSXJ FLP TUBE ABDL/VAG APPR UNI/BI 1987 PAST SURGICAL HISTORY OF left eye surgery for dry eye PAST SURGICAL HISTORY OF 2015 [facility] PAST SURGICAL HISTORY OF 2014 tooth extraction TONSILLECTOMY HX Current Outpatient Medications Medication Sig calcium citrate/vitamin D3 (CALCIUM CITRATE + ORAL) Take 1,000 mg by mouth once daily. levothyroxine (SYNTHROID) 75 mcg tablet take 1 tablet by mouth every morning ON AN EMPTY STOMACH albuterol HFA (VENTOLIN HFA) 90 mcg/actuation inhaler Inhale 2 Puffs as instructed every 4 hours as needed for wheezing/shortness of breath. ubidecarenone Q-10 (CO Q-10) 10 mg cap Take 5 capsules by mouth twice daily. fenofibrate nanocrystallized (TRICOR) 48 mg tablet Take 1 tablet by mouth once daily. lisinopril-hydroCHLOROthiazide (PRINZIDE,ZESTORETIC) 10-12.5 mg per tablet Take 1 tablet by mouth once daily. Biotin 10,000 mcg cap Take 1 capsule by mouth once daily. red yeast rice 600 mg tab Take 2 tablets by mouth once daily. tvvt-kbokaw-qwj#8-C-erex-boron [id number] mg tab Take 3 capsules by mouth once daily. ascorbic acid, vitamin C, (VITAMIN C) 500 mg tablet Take 1,000 mg by mouth once daily. calcium carbonate 500 mg calcium (1,250 mg) chewable tablet Take 1 tablet by mouth once daily. Blood Pressure Cuff - Home Use BLOOD PRESSURE CUFF FOR HOME USE. DX: LABILE BLOOD PRESSURE multivitamin ORAL tablet Take 1 tablet by mouth once daily. cyanocobalamin, vitamin B-12, 500 mcg chew Take 1 tablet by mouth as needed. cyclobenzaprine (FLEXERIL) 10 mg tablet Take 1 tablet by mouth three times daily as needed for Muscle Spasm. (Patient not taking: Reported on 03/01/2023) No current facility-administered medications for this visit. ALLERGIES: Ambien [Zolpidem Tartrate], Lipitor [Atorvastatin Calcium], Meloxicam, Naproxen Sodium, Relafen [Nabumetone], Scallops, Seasonal Allergies, Xfohqod-Iza-Bcg Reductase Inhibitors, Toradol [Ketorolac Tromethamine], and Zofran [Ondansetron] PERSONAL HISTORY: Social History Tobacco Use Smoking status: Never Smokeless tobacco: Never Vaping Use Vaping Use: Never used Substance Use Topics Alcohol use: Yes Comment: occasionally glass of wine Drug use: No FAMILY HISTORY: FAMILY HISTORY Problem Relation Age of Onset Hypertension Mother Colon Cancer Father Hypertension Father Cervical Cancer Sister other (Endometrial Cancer) Sister None Brother Heart Maternal Grandmother Heart Paternal Grandmother Heart Paternal Grandfather None Daughter None Daughter None Sister REVIEW OF SYMPTOMS: The review of systems data was entered by the nurse and reviewed by ny Nursing Notes: Jacklyn Euceda LPN 03/01/2023 9:32 AM Signed REVIEW OF SYSTEMS: General: The patient denies fatigue, denies weight loss, denies weight gain, denies feeling hot, and denies feelings of cold. Eyes: The patient notes glaucoma, denies eye injury/surgery, wears glasses or contacts. Ear/Nose/Throat: The patient notes allergies, denies hayfever, denies ear infections, and notes bloody noses. Cardiovascular: The patient denies chest pain, denies heart disease, notes high blood pressure,denies cardiac stent, denies prior heart attack, denies irregular heart beat, notes high cholesterol, denies poor circulation, denies heart failure, other cardiac issues, denies claudication, denies cold feet, denies peripheral arterial stent. Respiratory: The patient denies tuberculosis, denies pneumonia, denies frequent cough, denies pulmonary embolism, denies shortness of breath, and denies coughing up blood, notes asthma Gastrointestinal: The patient notes difficulty swallowing, denies acid reflux, denies ulcers, denies vomiting, denies jaundice/hepatitis, notes gallbladder problems, denies black or tarry stools, notes hemorrhoids, denies bleeding from rectum, denies diverticulitis, denies constipation, denies diarrhea, denies loss of stool control, and denies hernias. Kidney/Bladder: The patient denies kidney stones, notes urine infections, and denies bloody urine. Skin: The patient denies a history of skin cancer, denies bleeding/changing moles, and denies a history of skin rash. Neurologic: The patient denies a history of epilepsy/convulsions, denies headaches, denies head/spinal injuries, and denies stroke/TIA. Psychiatric: The patient denies psychiatric medications, notes depression, and denies voices, denies substance abuse. Endocrine: The patient notes thyroid disorders, denies diabetes, and denies hormonal problems. Hematologic: The patient notes a history of bruising, denies bleeding, and denies anemia, denies blood clots. Infections: The patient notes a history of measles and mumps, denies rheumatic fever, and denies sexually transmitted diseases. Musculoskeletal: The patient denies back pain/injury, notes back problems, notes sciatica, notes knee/foot trouble, notes arthritis, or denies gout. When was patient's last Mammogram screening? 2022 Last Colonoscopy: 2017 Jacklyn Euceda LPN I have confirmed and edited as necessary, the PFSH and ROS obtained by others. Vargas Olea PA-C PHYSICAL EXAMINATION: General: The patient is 67 year old female, well nourished, well hydrated in no acute distress. The patient is oriented to time, place, and person. VITALS: Blood pressure 128/68, pulse 74, temperature 36.8 C (98.3 F), height 177.8 cm (5' 10 ), weight 77.6 kg (171 lb), last menstrual period 06/22/2011, SpO2 99 %. Body mass index is 24.54 kg/m . HEENT: Normal cephalic, ataumatic, pupils are equally round, sclera are anicteric, mucous membranes are moist, oropharynx is clear. Neck has no masses, asymmetry or lymphadenopathy. Respiratory: Clear to auscultation and percussion. Normal respiratory excursion and pattern. Cardiac: Examination is regular rate and rhythm. Normal S1/S2 Abdominal exam: Soft, nontender, with no palpable masses. No hepatosplenomegaly. No palpable hernias. Extremities: no clubbing, cyanosis or edema. No adenopathy. LABORATORY VALUES: As Noted RADIOLOGIC STUDIES: As Noted Assessment IMPRESSION: encounter for high-risk surveillance colonoscopy due to family history of colon cancer PLAN: I have reviewed my findings with the surgeon. Will plan for lower endoscopy. We discussed the risks and benefits of the planned endoscopy. I have informed the patient that complications can occur including failure to complete the endoscopy and perforation. The patient had the opportunity to ask questions concerning the planned endoscopy. My staff has also explained the procedure to the patient in understandable terms and has given the patient printed material concerning the procedure. The patient freely consents to surgery. I plan to use Golytely bowel preparation Diagnoses: (Z86.010) History of colonic polyps (primary encounter diagnosis) (Z12.11) Encounter for screening for malignant neoplasm of colon I spent a total of 24 minutes on the date of the service which included preparing to see the patient, [id number] patient care, completing clinical documentation, obtaining and/or reviewing separately obtained history, performing a medically appropriate examination, counseling and educating the patient/family/caregiver, and ordering medications, tests, or procedures. Vargas Olea PA-C documented in this encounter [facility] 03-01-2023 Nurse Note REVIEW OF SYSTEMS: General: The patient denies fatigue, denies weight loss, denies weight gain, denies feeling hot, and denies feelings of cold. Eyes: The patient notes glaucoma, denies eye injury/surgery, wears glasses or contacts. Ear/Nose/Throat: The patient notes allergies, denies hayfever, denies ear infections, and notes bloody noses. Cardiovascular: The patient denies chest pain, denies heart disease, notes high blood pressure,denies cardiac stent, denies prior heart attack, denies irregular heart beat, notes high cholesterol, denies poor circulation, denies heart failure, other cardiac issues, denies claudication, denies cold feet, denies peripheral arterial stent. Respiratory: The patient denies tuberculosis, denies pneumonia, denies frequent cough, denies pulmonary embolism, denies shortness of breath, and denies coughing up blood, notes asthma Gastrointestinal: The patient notes difficulty swallowing, denies acid reflux, denies ulcers, denies vomiting, denies jaundice/hepatitis, notes gallbladder problems, denies black or tarry stools, notes hemorrhoids, denies bleeding from rectum, denies diverticulitis, denies constipation, denies diarrhea, denies loss of stool control, and denies hernias. Kidney/Bladder: The patient denies kidney stones, notes urine infections, and denies bloody urine. Skin: The patient denies a history of skin cancer, denies bleeding/changing moles, and denies a history of skin rash. Neurologic: The patient denies a history of epilepsy/convulsions, denies headaches, denies head/spinal injuries, and denies stroke/TIA. Psychiatric: The patient denies psychiatric medications, notes depression, and denies voices, denies substance abuse. Endocrine: The patient notes thyroid disorders, denies diabetes, and denies hormonal problems. Hematologic: The patient notes a history of bruising, denies bleeding, and denies anemia, denies blood clots. Infections: The patient notes a history of measles and mumps, denies rheumatic fever, and denies sexually transmitted diseases. Musculoskeletal: The patient denies back pain/injury, notes back problems, notes sciatica, notes knee/foot trouble, notes arthritis, or denies gout. When was patient's last Mammogram screening? 2022 Last Colonoscopy: 2017 Jacklyn Euceda LPN documented in this encounter [facility] 01-28-2023 Miscellaneous Notes The following approved medication requests have been transmitted electronically. Requested Prescriptions Pending Prescriptions Disp Refills levothyroxine (SYNTHROID) 75 mcg tablet [Pharmacy Med Name: LEVOTHYROXINE 75 MCG TABLET] 90 tablet 3 Sig: take 1 tablet by mouth every morning ON AN EMPTY STOMACH Wyatt Barney APRN.CAB STATION ATTENDANT Patient requesting rx changed to 90 days instead 30 Anastasiya Mcdowell Ma documented in this encounter [facility] 12-18-2022 Miscellaneous Notes Patient has been identified by name and date of : Yes Patient phones for refill(s): Requested Prescriptions Pending Prescriptions Disp Refills albuterol HFA (VENTOLIN HFA) 90 mcg/actuation inhaler 18 g 11 Sig: Inhale 2 Puffs as instructed every 4 hours as needed for wheezing/shortness of breath. Date of last office visit in primary care: 09/18/2022 Please advise. Thank you. Chinyere Galdamez LPN documented in this encounter [facility] 11-26-2022 Miscellaneous Notes Patient viewed results on mychart 2nd attempt made to contact patient. Left message to call office. Concha Patterson RN Left message to call office. Patients biopsy results are benign. Concha Patterson RN ----- Message from Rose Paez MD sent at 11/20/2022 9:51 AM EDT ----- benign Rose Paez MD documented in this encounter [facility] 11-17-2022 Note HNO ID: [id number] Author: Rose Paez MD Service: ? Author Type: Physician Type: Progress Notes Filed: 11/17/2022 9:22 AM Note Text: Herminia Godfrey is a 67 year old female who presents today for excision vulvar lesions. Indication: new vulvar lesions. Patient has concern about genital warts as her had them. UNIVERSAL PROTOCOL / SAFETY CHECKLIST Procedure to be Performed: excision vulvar lesions Sign In: A Moment of CARE was completed. Personnel directly involved with the procedure wore the appropriate PPE (Personal Protective Equipment). Patient/Surrogate Stated/Verified: PATIENT VERIFIED(optional for EMERGENT procedures): Patient name, Date of , Relevant allergies, and The intended procedure Time Out Communication: Intended patient and procedure match the source documents. Consent documented and matches the intended procedure. Sign Out: SIGN OUT (optional for EMERGENT procedures): All specimen containers correctly labeled. All instruments, equipment, possible retained foreign bodies accounted for. Post-procedure follow-up management communicated and Plan of Care Visit completed when applicable. Rose Paez MD PROCEDURE NOTE: GROSS LESIONS: Yes, 3 1mm lesions c/w skin tags or genital warts BIOPSY: Area was cleansed with chloraprep and anesthetized with 6mL 1% lidocaine with 1:100,000 epi. Lesions excised with scalpel. HEMOSTASIS: Obtained with silver nitrate and pressure Procedure Summary: Patient tolerated procedure well. ASSESSMENT: Vulvar lesions PLAN: Specimens labeled and sent to Pathology. Will notify patient of results in 1-2 weeks. Post-procedure instructions reviewed and written material given to the patient. Rose Paez MD [facility] 10-31-2022 Miscellaneous Notes November 02, 2022 PID: [id number] Herminia Godfrey [address] [place] [address] Dear Ms. Godfrey, We are pleased to inform you that the results of your recent breast imaging exam on 10/30/2022 are normal. Early detection of cancer is very important. We also understand recommendations regarding breast cancer screening are controversial. Please discuss with your primary care provider which strategy is best for you and whether a mammogram is right for you. Your imaging studies and report will be kept on file at [facility] as part of your permanent medical record and are available for your continuing care. Thank you for allowing us to help in meeting your health care needs. Sincerely, Dr. Robbnis Interpreting Radiologist [facility] (Normal over 40) documented in this encounter [facility] 10-30-2022 Note HNO ID: [id number] Author: RT Dot(Clarisse) Service: ? Author Type: Technologist Type: Progress Notes Filed: 10/30/2022 8:32 AM Note Text: Radiology Service Progress Note PATIENT NAME: Herminia Godfrey DATE OF SERVICE: October 30, 2022 TIME: 8:32 AM PATIENT IDENTITY VERIFICATION COMPLETED USING TWO (2) IDENTIFIERS: Name and Date of confirmed by patient verbally. FALL SCREENING: Has the patient had 2 falls in the last year or 1 fall with injury or currently using an Ambulatory Assistive Device (Walker, Cane, Wheelchair, Crutches, etc.)? No PATIENT GENDER DATA: Female. status: : No status: NO. PATIENT RELEVANT IMPLANT DATA REVIEWED: Not Applicable RADIOLOGY DEPARTMENT: Mammography PERIPHERAL IV DATA: Not applicable SIGNED BY: ALLIE Chris) October 30, 2022 8:32 AM [facility] 10-30-2022 History of Present illness Narrative Radiology Service Progress Note PATIENT NAME: Herminia Godfrey DATE OF SERVICE: October 30, 2022 TIME: 8:32 AM PATIENT IDENTITY VERIFICATION COMPLETED USING TWO (2) IDENTIFIERS: Name and Date of confirmed by patient verbally. FALL SCREENING: Has the patient had 2 falls in the last year or 1 fall with injury or currently using an Ambulatory Assistive Device (Walker, Cane, Wheelchair, Crutches, etc.)? No PATIENT GENDER DATA: Female. status: : No status: NO. PATIENT RELEVANT IMPLANT DATA REVIEWED: Not Applicable RADIOLOGY DEPARTMENT: Mammography PERIPHERAL IV DATA: Not applicable SIGNED BY: RT Dot(R) October 30, 2022 8:32 AM documented in this encounter [facility] 09-18-2022 Note HNO ID: [id number] Author: Palmira Ding MD Service: ? Author Type: Physician Type: Progress Notes Filed: 09/18/2022 11:18 AM Note Text: Medicare Yearly Visit Medical B eligibilty date age 66 Date of last exam none in the past year. PAST MEDICAL HISTORY Diagnosis Date Asthma Benign liver cyst High cholesterol HTN (hypertension) Hypothyroidism Mental disorder anxiety Snoring PAST SURGICAL HISTORY Procedure Laterality Date ARTHRP KNE CONDYLEANDPLATU MEDIALANDLAT COMPARTMENTS Left 08/05/2015 Knee replacement, total COLONOSCOPY 2012 COLONOSCOPY FLX DX W/COLLJ SPEC WHEN PFRMD 10/08/2011 Repeat 5 years COLONOSCOPY FLX DX W/COLLJ SPEC WHEN PFRMD 03/15/2018 repeat in 5 years DANDC (MISSED AB 1ST TRIMESTER) 1977 LAPAROSCOPIC APPENDECTOMY 12/15/15 Appendectomy [facility]. LIG/TRNSXJ FLP TUBE ABDL/VAG APPR UNI/BI 1987 PAST SURGICAL HISTORY OF left eye surgery for dry eye PAST SURGICAL HISTORY OF 2014 DANDC PAST SURGICAL HISTORY OF 2014 tooth extraction TONSILLECTOMY HX ALLERGIES: Ambien [Zolpidem Tartrate], Lipitor [Atorvastatin Calcium], Meloxicam, Naproxen Sodium, Relafen [Nabumetone], Scallops, Seasonal Allergies, Puslfmy-Vog-Osq Reductase Inhibitors, Toradol [Ketorolac Tromethamine], and Zofran [Ondansetron] Medications reviewed: Yes FAMILY HISTORY Problem Relation Age of Onset Hypertension Mother Colon Cancer Father Hypertension Father Cervical Cancer Sister other (Endometrial Cancer) Sister None Brother Heart Maternal Grandmother Heart Paternal Grandmother Heart Paternal Grandfather None Daughter None Daughter None Sister SOCIAL HISTORY: Social History Tobacco Use Smoking status: Never Smokeless tobacco: Never Vaping Use Vaping Use: Never used Substance Use Topics Alcohol use: Yes Comment: occasionally glass of wine Drug use: No Herminia denies regular aerobic exercise. She watches her diet for sodium, low fat and low cholesterol most of the time. List of current specialists seen: End of Live Planning discussed including patients advanced directive wishes: Yes I am willing to follow Herminia's advanced directives. PHQ-2 / Depression screen She in the past two weeks denies having felt down, depressed, hopeless, or with little interest or pleasure in doing things. PHQ-2 Score: 0 Functional Ability/Safety Screen 1. Was the patient's timed Up and Go test unsteady or longer than 30 seconds? No 2. Does the patient need help with the phone, transportation, shopping,preparing meals, housework, laundry, medications or managing money? No 3. Does your home have rugs in the hallway, lack of grab bars in the bathroom, lack of handrails on the stairs or have poor lighting? No Hearing Evaluation: normal PHYSICAL EXAM BP 124/62 (BP Site: Left Arm, BP Position: Sitting, BP Cuff Size: Large Adult) Pulse 63 Temp 36.6 ?C (97.9 ?F) Resp 12 Ht 177.8 cm (5' 10 ) Wt 77.6 kg (171 lb) LMP 06/22/2011 SpO2 100% BMI 24.54 kg/m? Alert and oriented X 3: YES Body mass index is 24.54 kg/m?. ASSESSMENT/PLAN: 67 year old female The following prevention plan was discussed during the office visit and provided to the patient: Palmira Ding MD Reason for Visit Patient presents with: Medicare Wellness Exam Herminia Godfrey is a 67 year old female who presents here today for Above Complaints.. Health Maintenance SPIROMETRY BP CONTROLLED (<130/80) DTAP,TDAP,TD(1 - Tdap) SHINGRIX VACCINE(1 of 2) COVID-19 VACCINE(2 - Booster for Yael series) ADVANCE DIRECTIVE DISCUSSION DEPRESSION ASSESSMENT MAMMOGRAM HPI Patient notes she is walking on the treadmill 6 days a week, for around 30 mins. She was not happy with losing too much weight , so she has tried to gain some weight back. In the wintertime the patient gains a few pounds anyway, at night time she makes her own popcorn, she has 2 cups of pop corn. Insomnia: she has been using biotin to help with hair but thinks it has made her insomniac, she has reduced the levels of biotin, and it has helped for sleep she has used melatonin and trazodone. She is trying not to use the trazodone, and was successful in taking her self off the medication. Hyperlipidemia: she has been doing the red rice yeast extract and fish oil since past 6 months We will do the blood work and see if they are any better. Patient has pain from arthritis, so she tried to go on an aklaline diet and she has cut out moxt meats except for a little bit of chicken, she also eats some egg whites, no egg yolks. She does think that the dietary change has helped her signficantly Less pain all over. She is alos doing apple cider vinegar daily to reduce the acidity in her diet. HTN: Compliant with medications. Denies any chest pain, palpitations, or edema. No SOB. Doesn't check BP at home generally. Careful with diet to avoid salt, trying to eat more fruits and vegetables, ex (more content not included)... [facility] 09-18-2022 History of Present illness Narrative Medicare Yearly Visit Medical B eligibilty date age 66 Date of last exam none in the past year. PAST MEDICAL HISTORY Diagnosis Date Asthma Benign liver cyst High cholesterol HTN (hypertension) Hypothyroidism Mental disorder anxiety Snoring PAST SURGICAL HISTORY Procedure Laterality Date ARTHRP KNE CONDYLE&PLATU MEDIAL&LAT COMPARTMENTS Left 08/05/2015 Knee replacement, total COLONOSCOPY 2012 COLONOSCOPY FLX DX W/COLLJ SPEC WHEN PFRMD 10/08/2011 Repeat 5 years COLONOSCOPY FLX DX W/COLLJ SPEC WHEN PFRMD 03/15/2018 repeat in 5 years D&C (MISSED AB 1ST TRIMESTER) 1977 LAPAROSCOPIC APPENDECTOMY 12/15/15 Appendectomy [facility]. LIG/TRNSXJ FLP TUBE ABDL/VAG APPR UNI/BI 1987 PAST SURGICAL HISTORY OF left eye surgery for dry eye PAST SURGICAL HISTORY OF 2014 D&C PAST SURGICAL HISTORY OF 2014 tooth extraction TONSILLECTOMY HX ALLERGIES: Ambien [Zolpidem Tartrate], Lipitor [Atorvastatin Calcium], Meloxicam, Naproxen Sodium, Relafen [Nabumetone], Scallops, Seasonal Allergies, Dzyijbu-Vwe-Xjw Reductase Inhibitors, Toradol [Ketorolac Tromethamine], and Zofran [Ondansetron] Medications reviewed: Yes FAMILY HISTORY Problem Relation Age of Onset Hypertension Mother Colon Cancer Father Hypertension Father Cervical Cancer Sister other (Endometrial Cancer) Sister None Brother Heart Maternal Grandmother Heart Paternal Grandmother Heart Paternal Grandfather None Daughter None Daughter None Sister SOCIAL HISTORY: Social History Tobacco Use Smoking status: Never Smokeless tobacco: Never Vaping Use Vaping Use: Never used Substance Use Topics Alcohol use: Yes Comment: occasionally glass of wine Drug use: No Herminia denies regular aerobic exercise. She watches her diet for sodium, low fat and low cholesterol most of the time. List of current specialists seen: End of Live Planning discussed including patients advanced directive wishes: Yes I am willing to follow Herminia's advanced directives. PHQ-2 / Depression screen She in the past two weeks denies having felt down, depressed, hopeless, or with little interest or pleasure in doing things. PHQ-2 Score: 0 Functional Ability/Safety Screen 1. Was the patient's timed Up and Go test unsteady or longer than 30 seconds? No 2. Does the patient need help with the phone, transportation, shopping,preparing meals, housework, laundry, medications or managing money? No 3. Does your home have rugs in the hallway, lack of grab bars in the bathroom, lack of handrails on the stairs or have poor lighting? No Hearing Evaluation: normal PHYSICAL EXAM BP 124/62 (BP Site: Left Arm, BP Position: Sitting, BP Cuff Size: Large Adult) Pulse 63 Temp 36.6 C (97.9 F) Resp 12 Ht 177.8 cm (5' 10 ) Wt 77.6 kg (171 lb) LMP 06/22/2011 SpO2 100% BMI 24.54 kg/m Alert and oriented X 3: YES Body mass index is 24.54 kg/m . ASSESSMENT/PLAN: 67 year old female The following prevention plan was discussed during the office visit and provided to the patient: Palmira Ding MD Reason for Visit Patient presents with: Medicare Wellness Exam Herminia Godfrey is a 67 year old female who presents here today for Above Complaints.. Health Maintenance SPIROMETRY BP CONTROLLED (<130/80) DTAP,TDAP,TD(1 - Tdap) SHINGRIX VACCINE(1 of 2) COVID-19 VACCINE(2 - Booster for Yael series) ADVANCE DIRECTIVE DISCUSSION DEPRESSION ASSESSMENT MAMMOGRAM HPI Patient notes she is walking on the treadmill 6 days a week, for around 30 mins. She was not happy with losing too much weight , so she has tried to gain some weight back. In the wintertime the patient gains a few pounds anyway, at night time she makes her own popcorn, she has 2 cups of pop corn. Insomnia: she has been using biotin to help with hair but thinks it has made her insomniac, she has reduced the levels of biotin, and it has helped for sleep she has used melatonin and trazodone. She is trying not to use the trazodone, and was successful in taking her self off the medication. Hyperlipidemia: she has been doing the red rice yeast extract and fish oil since past 6 months We will do the blood work and see if they are any better. Patient has pain from arthritis, so she tried to go on an aklaline diet and she has cut out moxt meats except for a little bit of chicken, she also eats some egg whites, no egg yolks. She does think that the dietary change has helped her signficantly Less pain all over. She is alos doing apple cider vinegar daily to reduce the acidity in her diet. HTN: Compliant with medications. Denies any chest pain, palpitations, or edema. No SOB. Doesn't check BP at home generally. Careful with diet to avoid salt, trying to eat more fruits and vegetables, exercises regularly. No problem-specific Assessment & Plan notes found for this encounter. PAST MEDICAL HISTORY Diagnosis Date Asthma Benign liver cyst High cholesterol HTN (hypertension) Hypothyroidism Mental disorder anxiety Snoring PAST SURGICAL HISTORY Procedure Laterality Date ARTHRP KNE CONDYLE&PLATU MEDIAL&LAT COMPARTMENTS Left 08/05/2015 Knee replacement, total COLONOSCOPY 2012 COLONOSCOPY FLX DX W/COLLJ SPEC WHEN PFRMD 10/08/2011 Repeat 5 years COLONOSCOPY FLX DX W/COLLJ SPEC WHEN PFRMD 03/15/2018 repeat in 5 years D&C (MISSED AB 1ST TRIMESTER) 1977 LAPAROSCOPIC APPENDECTOMY 12/15/15 Appendectomy [facility]. LIG/TRNSXJ FLP TUBE ABDL/VAG APPR UNI/BI 1987 PAST SURGICAL HISTORY OF left eye surgery for dry eye PAST SURGICAL HISTORY OF 2014 D&C PAST SURGICAL HISTORY OF 2014 tooth extraction TONSILLECTOMY HX FAMILY HISTORY Problem Relation Age of Onset Hypertension Mother Colon Cancer Father Hypertension Father Cervical Cancer Sister other (Endometrial Cancer) Sister None Brother Heart Maternal Grandmother Heart Paternal Grandmother Heart Paternal Grandfather None Daughter None Daughter None Sister Social History Tobacco Use Smoking status: Never Smokeless tobacco: Never Vaping Use Vaping Use: Never used Substance Use Topics Alcohol use: Yes Comment: occasionally glass of wine Drug use: No Past medical history, appointments, medications, allergies reviewed. Pertinent Lab/Diagnostic Studies are reviewed and discussed today Current Outpatient Medications: fenofibrate nanocrystallized (TRICOR) 48 mg tablet lisinopril-hydroCHLOROthiazide (PRINZIDE,ZESTORETIC) 10-12.5 mg per tablet Fish Oil-[place]-3 Fatty Acids (FISH OIL) 300-500 mg cap Biotin 10,000 mcg cap red yeast rice 600 mg tab [id number]-wpp#[id number]-boron [id number] mg tab levothyroxine (SYNTHROID) 75 mcg tablet traZODone (DESYREL) 50 mg tablet albuterol HFA (VENTOLIN HFA) 90 mcg/actuation inhaler cyclobenzaprine (FLEXERIL) 10 mg tablet ascorbic acid, vitamin C, (VITAMIN C) 500 mg tablet calcium carbonate 500 mg calcium (1,250 mg) chewable tablet Blood Pressure Cuff - Home Use multivitamin ORAL tablet cyanocobalamin, vitamin B-12, 500 mcg chew Review of Systems CONSTITUTIONAL: No fevers, chills night sweats, unintended weight loss CARDIOVASCULAR: No chest pain, dyspnea, palpitations, orthopnea, PND, ankle edema. PULM: No dyspnea, unexplained cough. GI: No dysphagia/odynophagia, problematic reflux, constipation, diarrhea, changes in stool habits, hematochezia, melena. : No new urinary complaints, including dysuria, gross hematuria or pyuria. NEURO: No new balance problems, peripheral weakness/paresthesias or numbness of concern. Physical Exam BP 124/62 (BP Site: Left Arm, BP Position: Sitting, BP Cuff Size: Large Adult) Pulse 63 Temp 36.6 C (97.9 F) Resp 12 Ht 177.8 cm (5' 10 ) Wt 77.6 kg (171 lb) LMP 06/22/2011 SpO2 100% BMI 24.54 kg/m General appearance: Well appearing, alert, in no acute distress, well nourished. Skin: Skin color, texture, turgor normal, no suspicious rashes or lesions Head: Normocephalic, no masses, lesions, tenderness or abnormalities Eyes: Anicteric sclera. Pupils are equally round and reactive to light. Extraocular movements are intact. Lungs: Lungs clear to auscultation. No wheezing, rhonchi, rales Heart: RRR without murmur, gallop, or rubs. Extremities: No deformities, edema, skin discoloration, clubbing or cyanosis. Good capillary refill. ASSESSMENT/PLAN: 1. Medicare annual wellness visit, subsequent - ICD9: V70.0, ICD10: Z00.00 (primary diagnosis) - Counseled on healthy diet and regular exercise - Calcium intake with supplements or by diet of 1000 mg/day for under 50, 8399-0859 mg/day for 50+ - LIPID PANEL BASIC 2. Mixed hyperlipidemia - ICD9: 272.2, ICD10: E78.2 Does not want statin and is doing the best she can currently. 3. Essential hypertension - ICD9: 401.9, ICD10: I10 - good control - Recommended regular aerobic exercise. - Recommend home blood pressure monitoring, to bring results in on next visit - Goal of BP <130/80 4. Acquired hypothyroidism - ICD9: 244.9, ICD10: E03.9 - Instructed patient on importance of taking on an empty stomach either first thing in the morning or at bedtime. Stable - Continue current medications 5. Adjustment insomnia - ICD9: 307.41, ICD10: F51.02 Palmira Ding MD documented in this encounter [facility] 09-18-2022 Nurse Note [address] [facility] and has an appt on September with Eye Exam with corrective lens right eye:20/40 left eye:20/50 documented in this encounter [facility] 08-28-2022 Miscellaneous Notes Patient has been identified by name and date of : No Patient phones for refill(s): Requested Prescriptions Pending Prescriptions Disp Refills fenofibrate nanocrystallized (TRICOR) 48 mg tablet 90 tablet 3 Sig: Take 1 tablet by mouth once daily. Date of last office visit in primary care: 04/23/2022 Last 2 Encounter Wt Readings: Date: Wt: 04/23/2022 75.5 kg (166 lb 6.4 oz) 10/21/2021 73.9 kg (163 lb) Previous labs/tests for medication: Not applicable Please advise. Thank you. Shira Brown LPN documented in this encounter [facility] 06-25-2022 Miscellaneous Notes Patient has been identified by name and date of : Yes Patient phones for refill(s): Requested Prescriptions Pending Prescriptions Disp Refills lisinopril-hydroCHLOROthiazide (PRINZIDE,ZESTORETIC) 10-12.5 mg per tablet 30 tablet 11 Sig: Take 1 tablet by mouth once daily. Date of last office visit in primary care: 04/23/22 Please advise. Thank you. Chinyere Galdamez LPN documented in this encounter [facility] 04-23-2022 History of Present illness Narrative Reason for Visit Patient presents with: F/U 6 months: Also requesting cholesterol be checked Herminia Godfrey is a 66 year old female who presents here today for Above Complaints.. Health Maintenance SPIROMETRY DTAP,TDAP,TD(1 - Tdap) SHINGRIX VACCINE(1 of 2) ADVANCE DIRECTIVE DISCUSSION DEPRESSION ASSESSMENT COVID-19 VACCINE(2 - Booster for Yael series) INFLUENZA(1) HPI Patient had a weird headache when she had covid, if she pushes on pressure points she is able to locate where the pain is coming from and it helps. She has been maintaining her weight loss recently. Insomnia: she has been using biotin to help with hair but thinks it has made her insomniac, she has reduced the levels of biotin, and it has helped for sleep she has used melatonin and trazodone. She is trying not to use the trazodone, it has been 2 years and she wants to get off. She does treadmill from 20 t0 30 mins. She does 180 mins. Hyperlipidemia: she has been doing the red rice yeast extract and fish oil since past 6 months We will do the blood work and see if they are any better No problem-specific Assessment & Plan notes found for this encounter. PAST MEDICAL HISTORY Diagnosis Date Asthma Benign liver cyst High cholesterol HTN (hypertension) Hypothyroidism Mental disorder anxiety Snoring PAST SURGICAL HISTORY Procedure Laterality Date ARTHRP KNE CONDYLE&PLATU MEDIAL&LAT COMPARTMENTS Left 08/05/2015 Knee replacement, total COLONOSCOPY 2012 COLONOSCOPY FLX DX W/COLLJ SPEC WHEN PFRMD 10/08/2011 Repeat 5 years COLONOSCOPY FLX DX W/COLLJ SPEC WHEN PFRMD 03/15/2018 repeat in 5 years D&C (MISSED AB 1ST TRIMESTER) 1977 LAPAROSCOPIC APPENDECTOMY 12/15/15 Appendectomy [facility]. LIG/TRNSXJ FLP TUBE ABDL/VAG APPR UNI/BI 1987 PAST SURGICAL HISTORY OF left eye surgery for dry eye PAST SURGICAL HISTORY OF 2014 D&C PAST SURGICAL HISTORY OF 2014 tooth extraction TONSILLECTOMY HX FAMILY HISTORY Problem Relation Age of Onset Hypertension Mother Colon Cancer Father Hypertension Father Cervical Cancer Sister other (Endometrial Cancer) Sister None Brother Heart Maternal Grandmother Heart Paternal Grandmother Heart Paternal Grandfather None Daughter None Daughter None Sister Social History Tobacco Use Smoking status: Never Smokeless tobacco: Never Vaping Use Vaping Use: Never used Substance Use Topics Alcohol use: Yes Comment: occasionally glass of wine Drug use: No Past medical history, appointments, medications, allergies reviewed. Pertinent Lab/Diagnostic Studies are reviewed and discussed today Current Outpatient Medications: Fish Oil-[place]-3 Fatty Acids (FISH OIL) 300-500 mg cap Biotin 10,000 mcg cap red yeast rice 600 mg tab gqbg-[id number]-gmv#[id number]-tvpf-boron [id number] mg tab levothyroxine (SYNTHROID) 75 mcg tablet traZODone (DESYREL) 50 mg tablet albuterol HFA (VENTOLIN HFA) 90 mcg/actuation inhaler fenofibrate nanocrystallized (TRICOR) 48 mg tablet lisinopril-hydroCHLOROthiazide (PRINZIDE,ZESTORETIC) 10-12.5 mg per tablet cyclobenzaprine (FLEXERIL) 10 mg tablet ascorbic acid, vitamin C, (VITAMIN C) 500 mg tablet calcium carbonate 500 mg calcium (1,250 mg) chewable tablet Blood Pressure Cuff - Home Use multivitamin ORAL tablet cyanocobalamin, vitamin B-12, 500 mcg chew Review of Systems CONSTITUTIONAL: No fevers, chills night sweats, unintended weight loss CARDIOVASCULAR: No chest pain, dyspnea, palpitations, orthopnea, PND, ankle edema. PULM: No dyspnea, unexplained cough. GI: No dysphagia/odynophagia, problematic reflux, constipation, diarrhea, changes in stool habits, hematochezia, melena. : No new urinary complaints, including dysuria, gross hematuria or pyuria. NEURO: No new balance problems, peripheral weakness/paresthesias or numbness of concern. Physical Exam BP 130/64 Pulse 63 Resp 16 Wt 75.5 kg (166 lb 6.4 oz) LMP 06/22/2011 SpO2 98% BMI 23.88 kg/m General appearance: Well appearing, alert, in no acute distress, well nourished. Skin: Skin color, texture, turgor normal, no suspicious rashes or lesions Head: Normocephalic, no masses, lesions, tenderness or abnormalities Eyes: Anicteric sclera. Pupils are equally round and reactive to light. Extraocular movements are intact. Lungs: Lungs clear to auscultation. No wheezing, rhonchi, rales Heart: RRR without murmur, gallop, or rubs. Extremities: No deformities, edema, skin discoloration, clubbing or cyanosis. Good capillary refill. ASSESSMENT/PLAN: 1. Mixed hyperlipidemia - ICD9: 272.2, ICD10: E78.2 (primary diagnosis) - good control - Continue current medication. - RED YEAST RICE 600 MG TABLET - LIPID PANEL BASIC 2. [place]ia - ICD9: 703.8, ICD10: L60.3 - IRON + TIBC - FERRITIN BLD 3. Essential hypertension - ICD9: 401.9, ICD10: I10 Blood pressure Is controlled 4. Hypertriglyceridemia - ICD9: 272.1, ICD10: E78.1 Cont on the current medication Palmira Ding MD documented in this encounter [facility] 04-14-2022 Miscellaneous Notes Patient has been identified by name and date of : Yes Patient phones for refill(s): Requested Prescriptions Pending Prescriptions Disp Refills levothyroxine (SYNTHROID) 75 mcg tablet 30 tablet 11 Sig: take 1 tablet by mouth once daily ON AN EMPTY STOMACH FOR THYROID Date of last office visit in primary care: 10/21/21 next apt 04/23/22 Last 2 Encounter Wt Readings: Date: Wt: 10/21/2021 73.9 kg (163 lb) 04/22/2021 72.6 kg (160 lb) Previous labs/tests for medication: Thyroid: TSH Date Value 04/13/2022 2.600 mIU/L 02/22/2021 2.640 uU/mL Thank you. Alka Posada LPN documented in this encounter [facility] 10-28-2021 Miscellaneous Notes October 28, 2021 PID: [id number] Herminia Godfrey [address] [place] [address] Dear Ms. Godfrey, We are pleased to inform you that the results of your recent breast imaging exam on 10/28/2021 are normal. Early detection of cancer is very important. We also understand recommendations regarding breast cancer screening are controversial. Please discuss with your primary care provider which strategy is best for you and whether a mammogram is right for you. Your imaging studies and report will be kept on file at [facility] as part of your permanent medical record and are available for your continuing care. Thank you for allowing us to help in meeting your health care needs. Sincerely, Dr. Pizarro Interpreting Radiologist [facility] (Normal over 40) documented in this encounter [facility] 10-28-2021 History of Present illness Narrative Radiology Service Progress Note PATIENT NAME: Herminia Godfrey DATE OF SERVICE: October 28, 2021 TIME: 8:01 AM PATIENT IDENTITY VERIFICATION COMPLETED USING TWO (2) IDENTIFIERS: Name and Date of confirmed by patient verbally. FALL SCREENING: Has the patient had 2 falls in the last year or 1 fall with injury or currently using an Ambulatory Assistive Device (Walker, Cane, Wheelchair, Crutches, etc.)? No PATIENT GENDER DATA: Female. status: : No status: NO. PATIENT RELEVANT IMPLANT DATA REVIEWED: Not Applicable RADIOLOGY DEPARTMENT: Mammography PERIPHERAL IV DATA: Not applicable SIGNED BY: Leatha Zamora October 28, 2021 8:01 AM documented in this encounter [facility] 10-21-2021 History of Present illness Narrative Reason for Visit Patient presents with: Established Patient: 6 month follow up-refills Herminia Godfrey is a 66 year old female who presents here today for Above Complaints.. Health Maintenance SPIROMETRY HIV SCREENING DTAP,TDAP,TD(1 - Tdap) SHINGRIX VACCINE(1 of 2) DEPRESSION SCREENING BONE DENSITY PNEUMOVAX AGE 65 AND OVER WITH 5YR LOOKBACK(1) ADVANCE DIRECTIVE DISCUSSION MAMMOGRAM COVID-19 VACCINE(2 - Booster for Yael series) HPI Patient had covid last fall and lost a lot of her hair from the illness, it was a mild illness, she monitored her oxygen, a couple times a day. Since covid, she had spots come up on her head.during covid, it lasted a week and a half, mild Patient is a very pleasant 65-year-old with a past medical history of hypertension, hyperlipidemia, hypertriglyceridemia, hypothyroidism, and anxiety. She is a little concerned today because her father had heart troubles when he was in his 60s. He had blood work done a couple months ago in preparation for today's visit and they were all within normal limits except for the LDL which we have discussed. She has been on asa 325 for the past many years today she brought, that up she has been taking this medication otc , together we decided that she does not need that medication, as she did not have a stroke, hypertension or hyperlipidemia. Concerned about her heart, as her father had 5 vessel bypass in his 60s. He of a stroke. She denies having chest pain, indigestion, jaw pain, interscapular pain. Waking on the treadmill 30 mins and no chest pain. She is really happy with her weight loss, lost around 50 pounds in the last 3 years already intentional. She actually feels more healthier and less fatigued and tired than she used to be. Patient had an stress test that was done in 2018 so exactly 2 years ago and it was said to be normal. Since that time she is actually lost 25 pounds and her cholesterols have gotten better. I explained to her that her risk without having diabetes, not being a smoker and having blood pressure is very controlled and with exercising 30 minutes a day and not having any symptoms suggestive of it is unlikely she has a significant blockage that needs to be treated. She was satisfied at the end of the conversation. She is walking 140 mins a week. Patient notes if she is out and about she is on therapy and she takes motivational music and it bring her norma. Mixed hyperlipidemia: Her cholesterols especially the LDL Is 132 from 126. She enjoys eating eggs and eats multiple eggs boiled form and in the day and almost every day. HTN: Compliant with medications. Denies any chest pain, palpitations, or edema. No SOB. Doesn't check BP at home generally. Careful with diet to avoid salt, trying to eat more fruits and vegetables, exercises regularly. Hypothyroidism. She is doing well on her current dose of Synthroid. Denies fatigue, cold intolerance and swelling in feet. TSH recently checked and normal. Takes trazodone for insomnia and it may help with the grief. Patient notes she tried to cut back at one point but it did not work No problem-specific Assessment & Plan notes found for this encounter. PAST MEDICAL HISTORY Diagnosis Date Asthma Benign liver cyst High cholesterol HTN (hypertension) Hypothyroidism Mental disorder anxiety Snoring PAST SURGICAL HISTORY Procedure Laterality Date ARTHRP KNE CONDYLE&PLATU MEDIAL&LAT COMPARTMENTS Left 08/05/2015 Knee replacement, total COLONOSCOPY 2012 COLONOSCOPY FLX DX W/COLLJ SPEC WHEN PFRMD 10/08/2011 Repeat 5 years COLONOSCOPY FLX DX W/COLLJ SPEC WHEN PFRMD 03/15/2018 repeat in 5 years D&C (MISSED AB 1ST TRIMESTER) 1977 LAPAROSCOPIC APPENDECTOMY 12/15/15 Appendectomy [facility]. LIG/TRNSXJ FLP TUBE ABDL/VAG APPR UNI/BI 1987 PAST SURGICAL HISTORY OF left eye surgery for dry eye PAST SURGICAL HISTORY OF 2014 D&C PAST SURGICAL HISTORY OF 2015 tooth extraction TONSILLECTOMY HX FAMILY HISTORY Problem Relation Age of Onset Hypertension Mother Colon Cancer Father Hypertension Father Cervical Cancer Sister other (Endometrial Cancer) Sister None Brother Heart Maternal Grandmother Heart Paternal Grandmother Heart Paternal Grandfather None Daughter None Daughter None Sister Social History Tobacco Use Smoking status: Never Smoker Smokeless tobacco: Never Used Vaping Use Vaping Use: Never used Substance Use Topics Alcohol use: Yes Comment: occasionally glass of wine Drug use: No Past medical history, appointments, medications, allergies reviewed. Pertinent Lab/Diagnostic Studies are reviewed and discussed today Current Outpatient Medications: fenofibrate nanocrystallized (TRICOR) 48 mg tablet lisinopril-hydroCHLOROthiazide (PRINZIDE,ZESTORETIC) 10-12.5 mg per tablet levothyroxine (SYNTHROID) 75 mcg tablet traZODone (DESYREL) 50 mg tablet albuterol HFA (VENTOLIN HFA) 90 mcg/actuation inhaler cyclobenzaprine (FLEXERIL) 10 mg tablet ascorbic acid, vitamin C, (VITAMIN C) 500 mg tablet calcium carbonate (CALCIUM 500) 500 mg calcium (1,250 mg) chewable tablet aspirin 325 mg tablet Blood Pressure Cuff - Home Use multivitamin ORAL tablet Cyanocobalamin (VITAMIN B-12) 2,000 mcg ORAL TbER Review of Systems CONSTITUTIONAL: No fevers, chills night sweats, unintended weight loss CARDIOVASCULAR: No chest pain, dyspnea, palpitations, orthopnea, PND, ankle edema. PULM: No dyspnea, unexplained cough. GI: No dysphagia/odynophagia, problematic reflux, constipation, diarrhea, changes in stool habits, hematochezia, melena. : No new urinary complaints, including dysuria, gross hematuria or pyuria. NEURO: No new balance problems, peripheral weakness/paresthesias or numbness of concern. Physical Exam BP 124/70 (BP Site: Left Arm, BP Position: Sitting, BP Cuff Size: Large Adult) Pulse 66 Temp 36.2 C (97.1 F) Resp 12 Ht 177.8 cm (5' 10 ) Wt 73.9 kg (163 lb) LMP 06/22/2011 SpO2 99% BMI 23.39 kg/m General appearance: Well appearing, alert, in no acute distress, well nourished. Skin: Skin color, texture, turgor normal, no suspicious rashes or lesions Head: Normocephalic, no masses, lesions, tenderness or abnormalities Eyes: Anicteric sclera. Pupils are equally round and reactive to light. Extraocular movements are intact. Lungs: Lungs clear to auscultation. No wheezing, rhonchi, rales Heart: RRR without murmur, gallop, or rubs. Extremities: No deformities, edema, skin discoloration, clubbing or cyanosis. Good capillary refill. ASSESSMENT/PLAN: 1. Hyperlipidemia, unspecified hyperlipidemia type - ICD9: 272.4, ICD10: E78.5 (primary diagnosis) We need to recheck her levels. - LIPID PANEL BASIC 2. Asthmatic bronchitis, unspecified asthma severity, uncomplicated - ICD9: 493.90, ICD10: J45.909 Mild intermittent Asthma stable - Avoidance of triggers recommended - ALBUTEROL SULFATE HFA 90 MCG/ACTUATION AEROSOL INHALER 3. Age-related osteoporosis without current pathological fracture - ICD9: 733.01, ICD10: M81.0 - Reviewed the need for Calcium and Vitamin D supplements and weight bearing exercise as tolerated - DXA-AXIAL SKELETON 4. Need for vaccination - ICD9: V05.9, ICD10: Z23 - PNEUMOCOCCAL IMMUNIZATION PPSV 23 5. Encounter for screening for HIV - ICD9: V73.89, ICD10: Z11.4 - HIV 1 2 COMBO(AG/AB),WITH REFLEX TO DIFFERENTIATION 6. Acquired hypothyroidism - ICD9: 244.9, ICD10: E03.9 - Instructed patient on importance of taking on an empty stomach either first thing in the morning or at bedtime. Stable - Continue current medications - TSH BLD Palmira Ding MD documented in this encounter [facility] documented as of this encounter (statuses as of 10/21/2021) [facility]2018 History of Past illness Narrative* Problem Noted Date Resolved Date Altered bowel habits 02/25/2018 08/19/2019 Overview: Added automatically from request for surgery [id number] Abnormal mammogram, unspecified 11/09/2012 04/09/2017 documented as of this encounter (statuses as of 10/29/2021) [facility] History of Past illness Narrative* Problem Noted Date Resolved Date Altered bowel habits 02/25/2018 08/19/2019 Overview: Added automatically from request for surgery [id number] Abnormal mammogram, unspecified 11/09/2012 04/09/2017 documented as of this encounter (statuses as of 10/30/2021) [address]-2018 History of Past illness Narrative* Problem Noted Date Resolved Date Altered bowel habits 02/25/2018 08/19/2019 Overview: Added automatically from request for surgery [id number] Abnormal mammogram, unspecified 11/09/2012 04/09/2017 documented as of this encounter (statuses as of 04/10/2022) [address]-2018 History of Past illness Narrative* Problem Noted Date Resolved Date Altered bowel habits 02/25/2018 08/19/2019 Overview: Added automatically from request for surgery [id number] Abnormal mammogram, unspecified 11/09/2012 04/09/2017 documented as of this encounter (statuses as of 04/15/2022) [address]-2018 History of Past illness Narrative* Problem Noted Date Resolved Date Altered bowel habits 02/25/2018 08/19/2019 Overview: Added automatically from request for surgery [id number] Abnormal mammogram, unspecified 11/09/2012 04/09/2017 documented as of this encounter (statuses as of 04/17/2022) [address]-2018 History of Past illness Narrative* Problem Noted Date Resolved Date Altered bowel habits 02/25/2018 08/19/2019 Overview: Added automatically from request for surgery [id number] Abnormal mammogram, unspecified 11/09/2012 04/09/2017 documented as of this encounter (statuses as of 04/23/2022) [address]2018 History of Past illness Narrative* Problem Noted Date Resolved Date Altered bowel habits 02/25/2018 08/19/2019 Overview: Added automatically from request for surgery [id number] Abnormal mammogram, unspecified 11/09/2012 04/09/2017 documented as of this encounter (statuses as of 06/25/2022) [address]2018 History of Past illness Narrative* Problem Noted Date Resolved Date Altered bowel habits 02/25/2018 08/19/2019 Overview: Added automatically from request for surgery [id number] Abnormal mammogram, unspecified 11/09/2012 04/09/2017 documented as of this encounter (statuses as of 08/28/2022) [address]2018 History of Past illness Narrative* Problem Noted Date Resolved Date Altered bowel habits 02/25/2018 08/19/2019 Overview: Added automatically from request for surgery [id number] Abnormal mammogram, unspecified 11/09/2012 04/09/2017 documented as of this encounter (statuses as of 09/18/2022) [address]2018 History of Past illness Narrative* Problem Noted Date Resolved Date Altered bowel habits 02/25/2018 08/19/2019 Overview: Added automatically from request for surgery [id number] Abnormal mammogram, unspecified 11/09/2012 04/09/2017 documented as of this encounter (statuses as of 11/03/2022) [address]2018 History of Past illness Narrative* Problem Noted Date Resolved Date Altered bowel habits 02/25/2018 08/19/2019 Overview: Added automatically from request for surgery [id number] Abnormal mammogram, unspecified 11/09/2012 04/09/2017 documented as of this encounter (statuses as of 11/26/2022) [address]2018 History of Past illness Narrative* Problem Noted Date Resolved Date Altered bowel habits 02/25/2018 08/19/2019 Overview: Added automatically from request for surgery [id number] Abnormal mammogram, unspecified 11/09/2012 04/09/2017 documented as of this encounter (statuses as of 12/19/2022) [address]2018 History of Past illness Narrative* Problem Noted Date Diagnosed Date Resolved Date Altered bowel habits 02/25/2018 020 Overview: Added automatically from request for surgery [id number] Abnormal mammogram, unspecified 11/09/2012 04/09/2017 documented as of this encounter (statuses as of 01/29/2023) [facility] History of Past illness Narrative* Problem Noted Date Diagnosed Date Resolved Date Altered bowel habits 02/25/2018 020 Overview: Added automatically from request for surgery [id number] Abnormal mammogram, unspecified 11/09/2012 04/09/2017 documented as of this encounter (statuses as of 03/01/2023) [facility] History of Past illness Narrative* Problem Noted Date Diagnosed Date Resolved Date Altered bowel habits 02/25/2018 020 Overview: Added automatically from request for surgery [id number] Abnormal mammogram, unspecified 11/09/2012 04/09/2017 documented as of this encounter (statuses as of 03/12/2023) [facility] History of Past illness Narrative* Problem Noted Date Diagnosed Date Resolved Date Altered bowel habits 02/25/2018 020 Overview: Added automatically from request for surgery [id number] Abnormal mammogram, unspecified 11/09/2012 04/09/2017 documented as of this encounter (statuses as of 03/25/2023) [facility] History of Past illness Narrative* Problem Noted Date Diagnosed Date Resolved Date Altered bowel habits 02/25/2018 020 Overview: Added automatically from request for surgery [id number] Abnormal mammogram, unspecified 11/09/2012 04/09/2017 documented as of this encounter (statuses as of 05/23/2023) [address]2018 History of Past illness Narrative* Problem Noted Date Diagnosed Date Resolved Date Altered bowel habits 02/25/2018 020 Overview: Added automatically from request for surgery [id number] Abnormal mammogram, unspecified 11/09/2012 04/09/2017 documented as of this encounter (statuses as of 05/23/2023) [facility] History of Past illness Narrative* Problem Noted Date Diagnosed Date Resolved Date Altered bowel habits 02/25/2018 020 Overview: Added automatically from request for surgery [id number] Abnormal mammogram, unspecified 11/09/2012 04/09/2017 documented as of this encounter (statuses as of 06/16/2023) [facility] History of Past illness Narrative* Problem Noted Date Diagnosed Date Resolved Date Altered bowel habits 02/25/2018 020 Overview: Added automatically from request for surgery [id number] Abnormal mammogram, unspecified 11/09/2012 04/09/2017 documented as of this encounter (statuses as of 06/22/2023) [address]2018 History of Past illness Narrative* Problem Noted Date Diagnosed Date Resolved Date Altered bowel habits 02/25/2018 020 Overview: Added automatically from request for surgery [id number] Abnormal mammogram, unspecified 11/09/2012 04/09/2017 documented as of this encounter (statuses as of 06/22/2023) [address]2018 History of Past illness Narrative* Problem Noted Date Diagnosed Date Resolved Date Altered bowel habits 02/25/2018 020 Overview: Added automatically from request for surgery [id number] Abnormal mammogram, unspecified 11/09/2012 04/09/2017 documented as of this encounter (statuses as of 08/23/2023) [facility] note* Diagnosis Hyperlipidemia, unspecified hyperlipidemia type- Primary Asthmatic bronchitis, unspecified asthma severity, uncomplicated Age-related osteoporosis without current pathological fracture Senile osteoporosis Need for vaccination Need for prophylactic vaccination and inoculation against unspecified single disease Encounter for screening for HIV Acquired hypothyroidism Unspecified hypothyroidism [facility] Diagnosis Encounter for screening mammogram for breast cancer [facility] Diagnosis Vitamin D deficiency- Primary Unspecified vitamin D deficiency Acquired hypothyroidism Unspecified hypothyroidism Essential hypertension Unspecified essential hypertension [facility] Mixed hyperlipidemia- Primary [place] Other specified disease of nail Essential hypertension Unspecified essential hypertension Hypertriglyceridemia Pure hyperglyceridemia [facility] Diagnosis Hypertriglyceridemia Pure hyperglyceridemia documented in this encounter [facility] note* Diagnosis Medicare annual wellness visit, subsequent- Primary Routine general medical examination at a health care facility Mixed hyperlipidemia Essential hypertension Unspecified essential hypertension Acquired hypothyroidism Unspecified hypothyroidism Adjustment insomnia Transient disorder of initiating or maintaining sleep documented in this encounter [facility] note* Diagnosis Asthmatic bronchitis, unspecified asthma severity, uncomplicated [facility] Diagnosis History of colonic polyps- Primary Personal history of colonic polyps Encounter for screening for malignant neoplasm of colon Special screening for malignant neoplasms, colon Family history of colon cancer Family history of malignant neoplasm of gastrointestinal tract documented in this encounter [facility] note* Diagnosis Essential hypertension Unspecified essential hypertension Acquired hypothyroidism Unspecified hypothyroidism Medication management Encounter for long-term (current) use of other medications documented in this encounter [facility] note* Diagnosis Acquired hypothyroidism- Primary Unspecified hypothyroidism Essential hypertension Unspecified essential hypertension Mixed hyperlipidemia Mild intermittent asthmatic bronchitis without complication Vitamin D deficiency Unspecified vitamin D deficiency documented in this encounter [facility] note* Diagnosis Family history of colon cancer- Primary Family history of malignant neoplasm of gastrointestinal tract History of colonic polyps Personal history of colonic polyps documented in this encounter [facility] note* Diagnosis Hypertriglyceridemia Pure hyperglyceridemia documented in this encounter [facility] for referral (narrative)* Diagnostic Procedure Only (Routine) - Closed Specialty Diagnoses / Procedures Referred By Stan bullard Referred To Contact [facility] Diagnoses Encounter for screening mammogram for breast cancer Procedures CLARA SCREENING SCREENING MAMMOGRAPHY BI 2-VIEW BREAST INC CAD Palmira Ding MD [address] [place] [address] [facility] [address] [place] [id number] Referral ID Status Reason Start Date Expiration Date V isits Requested Visits Authorized [id number] Closed Auto-Generate d Referral 09/10/2021 10/10/2022 1 1 [facility] for referral (narrative)* Outpatient Procedure (Routine) - Closed Specialty Diagnoses / Procedures Referred By Stan bullard Referred To Contact [facility] Diagnoses History of colonic polyps Procedures COLONOSCOPY SCREENING COLONOSCOPY FLX DX W/COLLJ SPEC WHEN Vargas Benjamin PA-C [address] [place] [address] [address] Referral ID Status Reason Start Date Expiration Date V isits Requested Visits Authorized [id number] Closed Auto-Generate d Referral 03/01/2023 03/01/2024 1 1 T [facility] for visit Narrative* Outpatient Procedure (Routine) - Closed Specialty Diagnoses / Procedures Referred By Stan bullard Referred To Contact [facility] Diagnoses History of colonic polyps Procedures COLONOSCOPY SCREENING COLONOSCOPY FLX DX W/COLLJ SPEC WHEN Vargas Benjamin PA-C [address] [place] [address] [address] Referral ID Status Reason Start Date Expiration Date V isits Requested Visits Authorized [id number] Closed Auto-Generate d Referral 03/01/2023 03/01/2024 1 1 [facility] Summary Purpose Family History No Family History Records FoundNo Family History Records FoundNo Family History Records Found Advance Directives Documents on File Type Date 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 Author Type: Student Type: Anesthesia Procedure Notes Filed: 03/04/2020 10:17 AM Note Text: ANESTHESIOLOGY PROCEDURE NOTE Airway General Information Procedure Start Time/Medication Administration: 03/04/2020 10:13 AM Patient location during procedure: OR Timeout Performed Pre-procedure: timeout performed Consent Obtained: Yes Patient identity confirmed: arm band Staffing Performed by: KUMAR Indications and Patient Condition Preoxygenated: yes Difficult Mask: No Indications for airway management: anesthesia Method: asleep Cricoid Pressure: No Airway Accessory: oral airway Final Airway Details Final airway type: endotracheal airway Final Endotracheal Airway: ETT Cuffed: yes Successful intubation technique: direct laryngoscopy Endotracheal tube insertion site: oral Blade: Reginald Blade size: #4 ETT size (mm): 7.0 Measured from: lips Measurement (cm): 22 Cormack-Lehane Classification: grade I - full view of glottis Number of (more content not included)... Medications Administered Section Inactive Administered Medications - up to 3 most recent administrations Medication Order MAR Action Action Date Dose Rate Site diphenhydrAMINE 12.5-50 mg injection (BENADRYL) 12.5-50 mg, INTRAVENOUS, DIRECTED, Starting on Wed05/04/23 at 0930, Until Wed05/04/23 at 1329, DOSING DIRECTED BY PHYSICIAN FOR PROCEDURAL SEDATION ONLY, Intraprocedure Given 05/04/2023 9:47 AM EDT 50 mg fentaNYL 50 mcg/mL 25-100 mcg injection (SUBLIMAZE) 25-100 mcg, INTRAVENOUS, DIRECTED, Starting on Wed05/04/23 at 0930, Until Wed05/04/23 at 1329, DOSING DIRECTED BY PHYSICIAN FOR PROCEDURAL SEDATION ONLY, Intraprocedure Given by LIP 05/04/2023 9:32 AM EDT 25 mcg Additional Source Comments INFORMATION SOURCE (unrecogn ized section and content) DATE CREATED AUTHOR AUTHOR'S ORGANIZ ATION 03/07/2020 [facility] DATE CREATED AUTHOR AUTHOR'S ORGANIZ ATION 07/29/2023 [facility] Source Comments (unrecognize d section and content) In the event this informatio n is protected by the Federal Confidentiality of Alcohol and Drug Abuse Patient Records regulations: The Federal rules restrict any use of the information to criminally investigate or prosecute any alcohol or drug abuse patient.[facility] AdministrationIn the event this information is protected by the Federal Confidentiality of Alcohol and Drug Abuse Patient Records regulations: The Federal rules restrict any use of the information to criminally investigate or prosecute any alcohol or drug abuse patient.[facility] AdministrationIn the event this information is protected by the Federal Confidentiality of Alcohol and Drug Abuse Patient Records regulations: The Federal rules restrict any use of the information to criminally investigate or prosecute any alcohol or drug abuse patient.[facility] AdministrationIn the event this information is protected by the Federal Confidentiality of Alcohol and Drug Abuse Patient Records regulations: The Federal rules restrict any use of the information to criminally investigate or prosecute any alcohol or drug abuse patient.[facility] AdministrationIn the event this information is protected by the Federal Confidentiality of Alcohol and Drug Abuse Patient Records regulations: The Federal rules restrict any use of the information to criminally investigate or prosecute any alcohol or drug abuse patient.[facility] AdministrationIn the event this information is protected by the Federal Confidentiality of Alcohol and Drug Abuse Patient Records regulations: The Federal rules restrict any use of the information to criminally investigate or prosecute any alcohol or drug abuse patient.[facility] AdministrationIn the event this information is protected by the Federal Confidentiality of Alcohol and Drug Abuse Patient Records regulations: The Federal rules restrict any use of the information to criminally investigate or prosecute any alcohol or drug abuse patient.[facility] AdministrationIn the event this information is protected by the Federal Confidentiality of Alcohol and Drug Abuse Patient Records regulations: The Federal rules restrict any use of the information to criminally investigate or prosecute any alcohol or drug abuse patient.[facility] AdministrationIn the event this information is protected by the Federal Confidentiality of Alcohol and Drug Abuse Patient Records regulations: The Federal rules restrict any use of the information to criminally investigate or prosecute any alcohol or drug abuse patient.[facility] AdministrationIn the event this information is protected by the Federal Confidentiality of Alcohol and Drug Abuse Patient Records regulations: The Federal rules restrict any use of the information to criminally investigate or prosecute any alcohol or drug abuse patient.[facility] AdministrationIn the event this information is protected by the Federal Confidentiality of Alcohol and Drug Abuse Patient Records regulations: The Federal rules restrict any use of the information to criminally investigate or prosecute any alcohol or drug abuse patient.[facility] AdministrationIn the event this information is protected by the Federal Confidentiality of Alcohol and Drug Abuse Patient Records regulations: The Federal rules restrict any use of the information to criminally investigate or prosecute any alcohol or drug abuse patient.[facility] AdministrationIn the event this information is protected by the Federal Confidentiality of Alcohol and Drug Abuse Patient Records regulations: The Federal rules restrict any use of the information to criminally investigate or prosecute any alcohol or drug abuse patient.[facility] AdministrationIn the event this information is protected by the Federal Confidentiality of Alcohol and Drug Abuse Patient Records regulations: The Federal rules restrict any use of the information to criminally investigate or prosecute any alcohol or drug abuse patient.[facility] AdministrationIn the event this information is protected by the Federal Confidentiality of Alcohol and Drug Abuse Patient Records regulations: The Federal rules restrict any use of the information to criminally investigate or prosecute any alcohol or drug abuse patient.[facility] AdministrationIn the event this information is protected by the Federal Confidentiality of Alcohol and Drug Abuse Patient Records regulations: The Federal rules restrict any use of the information to criminally investigate or prosecute any alcohol or drug abuse patient.[facility] AdministrationIn the event this information is protected by the Federal Confidentiality of Alcohol and Drug Abuse Patient Records regulations: The Federal rules restrict any use of the information to criminally investigate or prosecute any alcohol or drug abuse patient.[facility] AdministrationIn the event this information is protected by the Federal Confidentiality of Alcohol and Drug Abuse Patient Records regulations: The Federal rules restrict any use of the information to criminally investigate or prosecute any alcohol or drug abuse patient.[facility] AdministrationIn the event this information is protected by the Federal Confidentiality of Alcohol and Drug Abuse Patient Records regulations: The Federal rules restrict any use of the information to criminally investigate or prosecute any alcohol or drug abuse patient.[facility] AdministrationIn the event this information is protected by the Federal Confidentiality of Alcohol and Drug Abuse Patient Records regulations: The Federal rules restrict any use of the information to criminally investigate or prosecute any alcohol or drug abuse patient.[facility] AdministrationIn the event this information is protected by the Federal Confidentiality of Alcohol and Drug Abuse Patient Records regulations: The Federal rules restrict any use of the information to criminally investigate or prosecute any alcohol or drug abuse patient.[facility] AdministrationIn the event this information is protected by the Federal Confidentiality of Alcohol and Drug Abuse Patient Records regulations: The Federal rules restrict any use of the information to criminally investigate or prosecute any alcohol or drug abuse patient.[facility] AdministrationIn the event this information is protected by the Federal Confidentiality of Alcohol and Drug Abuse Patient Records regulations: The Federal rules restrict any use of the information to criminally investigate or prosecute any alcohol or drug abuse patient.[facility] Reason for Visit (unrecogniz ed section and content) Reason Comments Radiology Mammogram Specialty Diagnoses / Procedures Referred By Contac t Referred To Contact [facility] Diagnoses Encounter for screening mammogram for breast cancer Procedures CLARA SCREENING SCREENING MAMMOGRAPHY BI 2-VIEW BREAST INC Palmira Figueroa MD [address] [place] [address] [facility] [address] [place] [address] Referral ID Status Reason Start Date Expiration Date V isits Requested Visits Authorized [id number] Closed Auto-Generate d Referral 09/10/2021 10/10/2022 1 1 Reason Onset Date Comments Refill Request 04/14/2022 Reason Comments F/U 6 months Also requesting chol esterol be checked Reason Onset Date Comments Refill Request 06/25/2022 Reason Onset Date Comments Refill Request 08/28/2022 Reason Comments Medicare Wellness Exam Reason Comments Results Reason Onset Date Comments Refill Request 12/18/2022 Reason Comments Med Change Request Reason Comments Consult Colonoscopy 5 year Specialty Diagnoses / Procedures Referred By Stan bullard Referred To Contact General Surgery / GENERAL SURGERY Diagnoses Encounter for other specified special examinations colonoscopy recall 5yr RG 03/15 Procedures OFFICE/OUTPATIENT NEW HIGH MDM 60-74 MINUTES OFFICE/OUTPATIENT NEW MODERATE MDM 45-59 MINUTES OFFICE/OUTPATIENT NEW LOW MDM 30-44 MINUTES OFFICE/OUTPATIENT NEW SF MDM 15-29 MINUTES NEW DDI PATIENT Georgi Lua MD [address] 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 [address] [address] Home Care Physician Orthopedics 08/06/15 Jesus Marin MD [facility] [address] [address] Referring Orthopedics 08/06/15 Printing Machinist Relationship Specialty Start Date End Date Palmira Ding MD [address] [place] [address] PCP - General Internal Medicine 10/07/16 Jesus Marin MD [facility] [address] [address] Home Care Provider Orthopedics 08/06/15 Jesus Marin MD [facility] [address] [address] Referring Orthopedics 08/06/15 Printing Machinist Relationship Specialty Start Date End Date Palmira Ding MD [address] [place] [address] PCP - General Internal Medicine 10/07/16 Jesus Marin MD [address] [address] Home Care Provider Orthopedics 08/06/15 Jesus Marin MD [facility] [address] [address] Referring Orthopedics 08/06/15 Printing Machinist Relationship Specialty Start Date End Date Palmira Ding MD [address] [place] [address] PCP - General Internal Medicine 10/07/16 Jesus Marin MD [address] [address] Home Care Provider Orthopedics 08/06/15 Jesus Marin MD [address] [address] Referring Orthopedics 08/06/15 Printing Machinist Relationship Specialty Start Date End Date Palmira Ding MD [address] [place] [address] PCP - General Internal Medicine 10/07/16 Jesus Marin MD [address] [address] Home Care Provider Orthopedics 08/06/15 Jesus Marin MD [address] [address] Referring Orthopedics 08/06/15 Printing Machinist Relationship Specialty Start Date End Date Palmira Ding MD [address] [place] [address] PCP - General Internal Medicine 10/07/16 Jesus Marin MD [address] [address] Home Care Provider Orthopedics 08/06/15 Jesus Marin MD [address] [address] Referring Orthopedics 08/06/15 Printing Machinist Relationship Specialty Start Date End Date Palmira Ding MD [address] [place] [address] PCP - General Internal Medicine 10/07/16 Jesus Marin MD [address] [address] Home Care Provider Orthopedics 08/06/15 Jesus Marin MD [address] [place] [address] Referring Orthopedics 08/06/15 Printing Machinist Relationship Specialty Start Date End Date Palmira Ding MD [address] [place] [address] PCP - General Internal Medicine 10/07/16 Jesus Marin MD [address] [place] [address] Home Care Provider Orthopedics 08/06/15 Jesus Marin MD [address] [place] [address] Referring Orthopedics 08/06/15 Printing Machinist Relationship Specialty Start Date End Date Palmira Ding MD [address] [place] [address] PCP - General Internal Medicine 10/07/16 Jesus Marin MD [address] [place] [address] Home Care Provider Orthopedics 08/06/15 Jesus Marin MD [address] [place] [address] Referring Orthopedics 08/06/15 Printing Machinist Relationship Specialty Start Date End Date Palmira Ding MD [address] [place] [address] PCP - General Internal Medicine 10/07/16 Jesus Marin MD [address] [address] Home Care Provider Orthopedics 08/06/15 Jesus Marin MD [address] [place] [address] Referring Orthopedics 08/06/15 Printing Machinist Relationship Specialty Start Date End Date Palmira Ding MD [address] [place] [address] PCP - General Internal Medicine 10/07/16 Jesus Marin MD [address] [place] [address] Home Care Provider Orthopedics 08/06/15 Jesus Marin MD [address] [place] [address] Referring Orthopedics 08/06/15 Printing Machinist Relationship Specialty Start Date End Date Palmira Ding MD [address] [place] [address] PCP - General Internal Medicine 10/07/16 Jesus Marin MD [address] [place] [address] Home Care Provider Orthopedics 08/06/15 Jesus Marin MD [address] [place] [address] Referring Orthopedics 08/06/15 Printing Machinist Relationship Specialty Start Date End Date Palmira Ding MD [address] [place] [address] PCP - General Internal Medicine 10/07/16 Jesus Marin MD [facility] [address] [address] Home Care Provider Orthopedics 08/06/15 Jesus Marin MD [facility] [address] [address] Referring Orthopedics 08/06/15 Printing Machinist Relationship Specialty Start Date End Date Palmira Ding MD [address] [place] [address] PCP - General Internal Medicine 10/07/16 Jesus Marin MD [facility] [address] [address] Home Care Provider Orthopedics 08/06/15 Jesus Marin MD [address] [place] [address] Referring Orthopedics 08/06/15 Printing Machinist Relationship Specialty Start Date End Date Palmira Ding MD [address] [place] [address] PCP - General Internal Medicine 10/07/16 Jesus Marin MD [facility] [address] [address] Home Care Provider Orthopedics 08/06/15 Jesus Marin MD [address] [address] Referring Orthopedics 08/06/15 Printing Machinist Relationship Specialty Start Date End Date Palmira Ding MD [address] [place] [address] PCP - General Internal Medicine 10/07/16 Jesus Marin MD [address] [place] [address] Home Care Provider Orthopedics 08/06/15 Jesus Marin MD [address] [place] [address] Referring Orthopedics 08/06/15 Printing Machinist Relationship Specialty Start Date End Date Palmira Ding MD [address] [place] [address] PCP - General Internal Medicine 10/07/16 Jesus Marin MD [address] [place] [address] Home Care Provider Orthopedics 08/06/15 Jesus Marin MD [address] [place] [address] Referring Orthopedics 08/06/15 FOR RECORDS PERTAINING TO PATIENTS WHO ARE OR HAVE BEEN ENROLLED IN A CHEMICAL DEPENDENCY/SUBSTANCEABUSE PROGRAM, SOME INFORMATION MAY BE OMITTED. This clinical summary was aggregated from multiple sources. Caution should be exercised in using it in the provision of clinical care. This summary normalizes information from multiple sources, and as a consequence, information in this document may materially change the coding, format and clinical context of patient data. In addition, data may be omitted in some cases. CLINICAL DECISIONS SHOULD BE BASED ON THE PRIMARY CLINICAL RECORDS. [facility], [facility]. provides no warranty or guarantee of the accuracy or completeness of information in this document.
[2023-08-24] MEDS: 0.9% Normal Saline (1000mL) 1,000 ML 75 ML IV (20:00)
--- OUTSIDE RECORDS SUMMARY | 2023-08-24 20:08 | XMS RPT_ITS | CCD ---
Author Name Unknown Address [address] [place] [address] Organization [facility] Care Team Providers Care 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 Name Role Phone Jesus Marin MD Unavailable [phone] Jesus Marin MD Unavailable Palmira Ding MD [...] Primary Care Unavailable Jesus Marin MD Unavailable [phone] Jesus Marin MD Unavailable Palmira Ding MD Primary Care Provider [phone] Allergies Allergy Classification Reported Allergen(s) Allergy Type Date of Onset Reaction(s) Facility (20 sources) atorvastatin; Translations: [ATORVASTATIN CALCIUM] Drug Allergy 4 Other: See Comments [facility] Work Phone: (4 sources) HMG-CoA reductase inhibitor; Translations: [[id number]-SQ A REDUCTASE INHIBITORS] Drug Intolerance 5 Other: See Comments [facility] Work Phone: (20 sources) Ketorolac; Translations: [KETOROLAC TROMETHAMINE] Drug Allergy 6 Other: See Comments [facility] (20 sources) meloxicam; Translations: [MELOXICAM] Drug Allergy 5 GI Upset [facility] Work Phone: (20 sources) nabumetone; Translations: [NABUMETONE] Drug Allergy 5 Other: See Comments [facility] (20 sources) Naproxen; Translations: [NAPROXEN SODIUM] Drug Allergy 5 GI Upset [facility] (20 sources) Ondansetron; Translations: [ONDANSETRON] Drug Allergy 0 Other: See Comments [facility] Work Phone: (20 sources) scallop allergenic extract; Translations: [SCALLOPS] Drug Allergy 2 Other: See Comments [facility] (20 sources) Seasonal allergy; Translations: [SEASONAL ALLERGIES] Propensity to adverse reactions 2 Other: See Comments [facility] (20 sources) zolpidem; Translations: [ZOLPIDEM TARTRATE] Drug Allergy 8 Intolerance [facility] Work Phone: (20 sources) HMG-CoA reductase inhibitor Drug Intolerance 5 Other: See Comments [facility] Work Phone: Medications Current Medications Medication Drug Class(es) Dates Sig (Normalized) Sig (Original) polyethylene glycol 3350 035449 mg / potassium chloride 2970 mg / sodium bicarbonate 6740 mg / sodium chloride 5860 mg / sodium sulfate 35645 mg powder for oral solution (1 source) Osmotic Laxative Start: 03-01-2023 End: 03-01-2023 peg 3350-Electrolytes (GOLYTELY) 236-22.74-6.74 -5.86 gram suspension Take 4,000 mL by mouth one time only for 1 dose. 1 Each 0 03/01/2023 03/01/2023 Active Completed/Discontinued Medications Medication Drug Class(es) Dates Sig (Normalized) Sig (Original) [id number] 200 actuat albuterol 0.09 mg/actuat metered dose [...] 03-06-2016 Episodic Other aftercare (1 source) Other long term care phlebotomist (current) drug therapy; Translations: [Medication management] Onset: [...] 61 mm[Hg] Georgi Lua MD Work Phone: [facility] 05-04-2023 10:37-0400 Heart rate 60 /min Georgi Lua MD Work Phone: [facility] 05-04-2023 10:37-0400 Respiratory rate 16 /min Georgi Lua MD Work Phone: [facility] 05-04-2023 10:37-0400 SaO2% (BldA) [Mass fraction] 97 % Georgi Lua MD Work Phone: [facility] 05-04-2023 10:37-0400 Systolic blood pressure 142 mm[Hg] Georgi Lua MD Work Phone: [facility] 05-04-2023 08:36-0400 Body temperature 97.59 [degF] Georgi Lua MD Work Phone: [facility] 03-24-2023 09:43-0400 Body weight 75.75 kg Norma Older SOLUTION MAKE UP OPERATOR.[employer] BUTTON PASTER Work Phone: [facility] 03-24-2023 09:43-0400 Diastolic blood pressure 82 mm[Hg] Norma Older SOLUTION MAKE UP OPERATOR.ACETONE BUTTON PASTER Work Phone: [facility] 03-24-2023 09:43-0400 Heart rate 66 /min Norma Older SOLUTION MAKE UP OPERATOR.ACETONE BUTTON PASTER Work Phone: [facility] 03-24-2023 09:43-0400 Respiratory rate 16 /min Norma Older SOLUTION MAKE UP OPERATOR.ACETONE BUTTON PASTER Work Phone: [facility] 03-24-2023 09:43-0400 SaO2% (BldA) [Mass fraction] 100 % Norma Older SOLUTION MAKE UP OPERATOR.ACETONE BUTTON PASTER Work Phone: [facility] 03-24-2023 09:43-0400 Systolic blood pressure 140 mm[Hg] Norma Older SOLUTION MAKE UP OPERATOR.ACETONE BUTTON PASTER Work Phone: [facility] 03-01-2023 09:29-0400 Body height 177.8 cm Vargas Beaver PA-C Work Phone: [facility] 03-01-2023 09:29-0400 Body temperature 98.29 [degF] Vargas Emmie PA-C Work Phone: [facility] 03-01-2023 09:29-0400 Body weight 77.56 kg Vargas Beaver PA-C Work Phone: [facility] 03-01-2023 09:29-0400 Diastolic blood pressure 68 mm[Hg] Vargas Emmie PA-C Work Phone: [facility] 03-01-2023 09:29-0400 Heart rate 74 /min Vargas Camarillof PA-C Work Phone: [facility] 03-01-2023 09:29-0400 SaO2% (BldA) [Mass fraction] 99 % Vargas Camarillof PA-C Work Phone: [facility] 03-01-2023 09:29-0400 Systolic blood pressure 128 mm[Hg] Vargas Camarillof PA-C Work Phone: [facility] 09-18-2022 10:00-0500 Body height 177.8 cm Palmira Ding MD Work Phone: [facility] 09-18-2022 10:00-0500 Body temperature 97.9 [degF] Palmira Ding MD Work Phone: [facility] 09-18-2022 10:00-0500 Body weight 77.56 kg Palmira Ding MD Work Phone: [facility] 09-18-2022 10:00-0500 Diastolic blood pressure 62 mm[Hg] Palmira Ding MD Work Phone: [facility] 09-18-2022 10:00-0500 Heart rate 63 /min Palmira Ding MD Work Phone: [facility] 09-18-2022 10:00-0500 Respiratory rate 12 /min Palmira Ding MD Work Phone: [facility] 09-18-2022 10:00-0500 SaO2% (BldA) [Mass fraction] 100 % Palmira Ding MD Work Phone: [facility] 09-18-2022 10:00-0500 Systolic blood pressure 124 mm[Hg] Palmira Ding MD Work Phone: [facility] 04-23-2022 09:48-0400 Body weight 75.48 kg Palmira Ding MD Work Phone: [facility] 04-23-2022 09:48-0400 Diastolic blood pressure 64 mm[Hg] Palmira Ding MD Work Phone: [facility] 04-23-2022 09:48-0400 Heart rate 63 /min Palmira Ding MD Work Phone: [facility] 04-23-2022 09:48-0400 Respiratory rate 16 /min Palmira Ding MD Work Phone: [facility] 04-23-2022 09:48-0400 SaO2% (BldA) [Mass fraction] 98 % Palmira Ding MD Work Phone: [facility] 04-23-2022 09:48-0400 Systolic blood pressure 130 mm[Hg] Palmira Ding MD Work Phone: [facility] 10-21-2021 10:06-0400 Body height 177.8 cm Palmira Ding MD Work Phone: [facility] 10-21-2021 10:06-0400 Body temperature 97.11 [degF] Palmira Ding MD Work Phone: [facility] 10-21-2021 10:06-0400 Body weight 73.94 kg Palmira Ding MD Work Phone: [facility] 10-21-2021 10:06-0400 Diastolic blood pressure 70 mm[Hg] Palmira Ding MD Work Phone: [facility] 10-21-2021 10:06-0400 Heart rate 66 /min Palmira Ding MD Work Phone: [facility] 10-21-2021 10:06-0400 Respiratory rate 12 /min Palmira Ding MD Work Phone: [facility] 10-21-2021 10:06-0400 SaO2% (BldA) [Mass fraction] 99 % Palmira Ding MD Work Phone: [facility] 10-21-2021 10:06-0400 Systolic blood pressure 124 mm[Hg] Palmira Ding MD Work Phone: [facility] Encounters Encounter Date Encounter Type Care Provider Facility Start: 08-20-2023 Marsha Fink APRN .AC[employer]ONE BUTTON PASTER Work Phone: [facility] Procedures Date Procedure Procedure Detail Performing Clinician Start: 05-04-2023 Level iv surg pathol ogy gross&microscopic exam eGorgi Lua MD Work Phone: Start: 05-04-2023 Colonoscopy [...] Activity Detail Author Start: 05-04-2028 Colonoscopy Colonoscopy [facility] Start: 05-04-2028 Colorectal Cancer Screening Colorectal Cancer Screening [facility] Start: 05-04-2028 Screening for malign ant neoplasm of colon [facility] Start: 03-27-2028 Lipid 1996 panel - S sheila or Plasma Lipid Screening [facility] Start: 03-27-2028 Lipid panel Lipid Screening [facility] Start: 09-25-2027 LIPID SCREEN LIPID SCREEN [facility] Start: 04-23-2027 LIPID SCREEN LIPID SCREEN [facility] Start: 10-22-2026 LIPID SCREEN LIPID SCREEN [facility] Start: 04-24-2026 LIPID SCREEN LIPID SCREEN [facility] Start: 03-20-2026 DIABETES SCREEN DIABETES SCREEN [facility] Start: 03-20-2026 Diabetes Screening Diabetes Screenin g [facility] Start: 04-13-2025 DIABETES SCREEN DIABETES SCREEN [facility] Start: 10-16-2024 DIABETES SCREEN DIABETES SCREEN [facility] Start: 03-24-2024 ANNUAL PCP TEAM FAST FOOD CREW LEAD LAURA DISEASE VISIT ANNUAL PCP TEAM CHRONIC DISEASE VISIT [facility] Start: 03-24-2024 Pneumococcal Vaccine : 65+ (2 - PCV) Pneumococcal Vaccine: 65+ (2 - PCV) [facility] Immunizations Immunization Date Immunization Notes Care Provider Kaitlin lynarnold 06-02-2023 influenza (aIIV4) vaccine, age 65+ yr, quadrivalent, PF (FLUAD QUAD) Norma Older SOLUTION MAKE UP OPERATOR.ACETONE BUTTON PASTER Work Phone: [facility] 2022 influenza virus vacc ine, unspecified formulation Screen Wstr [facility] 10-21-2021 pneumococcal polysaccharide vaccine, 23 valent Palmira Ding MD Work Phone: [facility] Work Phone: 04-30-2020 influenza virus vacc ine, unspecified formulation Palmira Ding MD Work Phone: [facility] 04-26-2019 Influenza, injectabl e, Madin Phuong Canine Kidney, preservative free, quadrivalent Palmira Ding MD Work Phone: [facility] 04-26-2019 influenza, seasonal, injectable Palmira Ding MD Work Phone: [facility] 04-20-2018 influenza, injectabl e, quadrivalent, preservative free Palmira Ding MD Work Phone: [facility] 05-04-2017 influenza, injectabl e, quadrivalent, contains preservative Palmira Ding MD Work Phone: [facility] 04-28-2016 influenza, injectabl e, quadrivalent, contains preservative Palmira Ding MD Work Phone: [facility] Work Phone: 05-21-2015 influenza, injectabl e, quadrivalent, contains preservative Palmira Ding MD Work Phone: [facility] 05-21-2015 influenza, seasonal, injectable Palmira Ding MD Work Phone: [facility] 05-17-2014 influenza, seasonal, injectable Palmira Ding MD Work Phone: [facility] Work Phone: 08-01-2013 influenza virus vacc ine, unspecified formulation Palmira Ding MD Work Phone: [facility] 07-20-2012 influenza virus vacc ine, whole virus Palmira Ding MD Work Phone: [facility] Payers Date Payer Category Payer Medicare AETNA MEDICARE A ETNA MEDICARE O [id number] 2021-Present [phone] [address] [place] [address] O [id number] 2021 Medicare AETNA MEDICARE A ETNA MEDICARE O [id number] 2021-Present [phone] [address] [place] [address] O [id number] 2021 Medicare [id number] Social History Date Type Detail Facility Start: 11-10-2012 End: 09-18-2022 Tobacco smoking status NHIS Never smoked tobacco [facility] Work Phone: Start: 10-21-2021 End: 06-21-2023 Alcohol intake Current drinker of alcohol (finding) [facility] Start: 03-15-2018 History SDOH Alcohol Comment occasionally glass of wine [facility] Start: 1955 Sex Assigned At Not on file [facility] Start: 10-11-2021 End: 04-23-2022 Exposure to SARS-CoV-2 (event) Not sure [facility] Work Phone: Start: 11-10-2012 End: 09-18-2022 Tobacco use and exposure Smokeless tobacco non-user [facility] Start: 06-23-2020 End: 11-17-2022 History of Social function [facility] Work Phone: Start: 06-23-2020 End: 11-17-2022 Tobacco use panel [facility] Work Phone: Adult Depression Screening Assessment 0 [facility] Work Phone: Medical Equipment Procedure Code Equipment Code Equipment Origin al Text Equipment Identifier Dates Cement Simplex P Bone Radiopaque Full Dose Sterile - [id number] Start: 08-05-2015 Clinical Notes 02-25-2018 to [...] Shira Woods LPN. documented in this encounter [facility] 06-22-2023 Miscellaneous Notes Recall letter done, Health maintenance updated, history updated. Bela Patel LPN documented in this encounter [facility] 06-22-2023 Miscellaneous Notes FOLLOW UP ENDOSCOPY - RESULTS AND RECOMMENDATIONS NAME: Herminia Godfrey [facility] NO.: [id number] : 1955 DATE: June 22, 2023 PRIMARY [...] the appropriate providers documented in this encounter [facility] 06-16-2023 Miscellaneous Notes Insurance is requesting a 90 day supply. Juani Dover LPN documented in this encounter [facility] 05-04-2023 Nurse Note Patient arrived laying on left side. Patient does not appear to be in any pain at this time patient reports no pain at this time. Abdomen appears to be nondistended and soft to palpation. Patient encouraged to belch and pass gas as needed. documented in this encounter [facility] 05-04-2023 History and physical note UPDATED PROCEDURAL [...] 1ST TRIMESTER) 1977 LAPAROSCOPIC APPENDECTOMY 12/15/15 Appendectomy [facility]. LIG/TRNSXJ FLP TUBE ABDL/VAG APPR UNI/BI 1987 [...] Take 2 tablets by mouth once daily. dgni-dfxcvs-gvd#9-L-wdrp-boron 727-571-28-1-3 mg tab Take 3 capsules by mouth [...] Naproxen Sodium, Relafen [Nabumetone], Scallops, Seasonal Allergies, Owsztqz-Ewt-Orf Reductase Inhibitors, Toradol [Ketorolac Tromethamine], and Zofran [...] which included preparing to see the patient, phzb-lp-njru patient care, completing clinical documentation, obtaining and/or reviewing separately obtained history, performing a medically appropriate examination, counseling and educating the patient/family/caregiver, and ordering medications, tests, or procedures. Vargas Oela PA-C Images from the original note were [...] 1ST TRIMESTER) 1977 LAPAROSCOPIC APPENDECTOMY 12/15/15 Appendectomy [facility]. LIG/TRNSXJ FLP TUBE ABDL/VAG APPR UNI/BI 1987 [...] Take 2 tablets by mouth once daily. rcjy-nkunds-fqe#2-G-tqbz-boron 745-178-59-1-3 mg tab Take 3 capsules by mouth [...] Naproxen Sodium, Relafen [Nabumetone], Scallops, Seasonal Allergies, Hhylupn-Pok-Yiv Reductase Inhibitors, Toradol [Ketorolac Tromethamine], and Zofran [...] and reviewed by me Nursing Notes: Jacklyn Eucdea LPN 03/01/2023 9:32 AM Signed REVIEW OF [...] which included preparing to see the patient, ogmn-zj-eaxi patient care, completing clinical documentation, obtaining and/or reviewing separately obtained history, performing a medically appropriate examination, counseling and educating the patient/family/caregiver, and ordering medications, tests, or procedures. Vargas Olea PA-C documented in this encounter [facility] 03-24-2023 Note HNO ID: [id number] Author: Norma Fink APRN.[employer] BUTTON PASTER Service: ? Author Type: Nurse Practitioner Type: [...] WHEN PFRMD 03/15/2018 repeat in 5 years DANKY (MISSED AB 1ST TRIMESTER) 1977 LAPAROSCOPIC APPENDECTOMY 12/15/15 Appendectomy [facility]. LIG/TRNSXJ FLP TUBE ABDL/VAG APPR UNI/BI 1987 PAST SURGICAL HISTORY OF left eye surgery for dry eye PAST SURGICAL HISTORY OF 2014 DANKY PAST SURGICAL HISTORY OF 2014 tooth extraction TONSILLECTOMY HX ALLERGIES Ambien [Zolpidem Tartrate], Lipitor [Atorvastatin Calcium], Meloxicam, Naproxen Sodium, Relafen [Nabumetone], Scallops, Seasonal Allergies, Dmlkxds-Utp-Pmp Reductase Inhibitors, Toradol [Ketorolac Tromethamine], and Zofran [...] Take 2 tablets by mouth once daily. pdvs-tnbptq-vvy#8-F-dkqk-boron 251-829-44-1-3 mg tab Take 3 capsules by mouth [...] 06/22/2011 (more content not included)... [facility] 03-24-2023 Instructions Norma Fink APRN.CNP - 03/24/2023 10:09 AM EDT Can order singulair/montelukast for any increased usage of albuterol and increase in asthma related symptoms. documented in this encounter [facility] 03-24-2023 History of Present illness Narrative CC: [...] 1ST TRIMESTER) 1977 LAPAROSCOPIC APPENDECTOMY 12/15/15 Appendectomy [facility]. LIG/TRNSXJ FLP TUBE ABDL/VAG APPR UNI/BI 1987 PAST SURGICAL HISTORY OF left eye surgery for dry eye PAST SURGICAL HISTORY OF 2014 D&C PAST SURGICAL HISTORY OF 2014 tooth extraction TONSILLECTOMY HX ALLERGIES Ambien [Zolpidem Tartrate], Lipitor [Atorvastatin Calcium], Meloxicam, Naproxen Sodium, Relafen [Nabumetone], Scallops, Seasonal Allergies, Nbermev-Wix-Zms Reductase Inhibitors, Toradol [Ketorolac Tromethamine], and Zofran [...] Take 2 tablets by mouth once daily. redd-nfoiub-rou#3-V-sfxk-boron 582-776-12-1-3 mg tab Take 3 capsules by mouth [...] Norma Fink APRN.FRANCO documented in this encounter [facility] 03-09-2023 Note Patient Outreach (IN TMMN) HERMINIA GODFREY ([id number]) 1955 F Date Time Provider Department 03/09/23 [...] ALLERGIES 08/25/2011 14 - Other: See Comments FDHZGUI-CQL-NRX REDUCTASE INHIBIT*11/08/2014 14 - Other: See Comments [...] [Z79.899] Order(s):BASIC METABOLIC PNL [SQBMP] Order #: [id number] FUTURE TSH BLD [SQTSH] Order #: [id number] FUTURE CBC [SQCBC] Order #: [id number] FUTURE AST/SGOT BLD [SQAST] Order #: [id number] FUTURE ALT/SGPT [SQALT] Order #: [id number] FUTURE Prescriptions as of 03/12/2023 - calcium [...] 2 tablets by mouth once daily. - uuxj-stigbt-oob#6-A-pajg-boron 171-807-85-1-3 mg tab Take 3 capsules by mouth [...] 08/19/2019 Hypertriglyceridemia [E78.1] 08/19/2019 Encounter Status:Closed by [employer]USER on 03/12/23 [facility] 03-01-2023 Note HNO ID: [id number] Author: Vargas Olea PA-C Service: ? Author Type: Physician Mechanic Senior Type: Progress Notes Filed: 03/01/2023 10:16 AM [...] WHEN PFRMD 03/15/2018 repeat in 5 years DANKY (MISSED AB 1ST TRIMESTER) 1977 LAPAROSCOPIC APPENDECTOMY 12/15/15 Appendectomy [facility]. LIG/TRNSXJ FLP TUBE ABDL/VAG APPR UNI/BI 1987 PAST SURGICAL HISTORY OF left eye surgery for dry eye PAST SURGICAL HISTORY OF 2014 DANKY PAST SURGICAL HISTORY OF 2014 tooth extraction [...] Take 2 tablets by mouth once daily. mipo-lqefte-gdf#0-X-iado-boron 882-749-09-1-3 mg tab Take 3 capsules by mouth [...] Naproxen Sodium, Relafen [Nabumetone], Scallops, Seasonal Allergies, Sfoqlye-Eou-Yyq Reductase Inhibitors, Toradol [Ketorolac Tromethamine], and Zofran [...] entered by the nurse and reviewed by or Nursing Notes: Jacklyn Euceda LPN 03/01/2023 9:32 [...] p (more content not included)... [facility] 03-01-2023 History of Present illness Narrative [...] 1ST TRIMESTER) 1977 LAPAROSCOPIC APPENDECTOMY 12/15/15 Appendectomy [facility]. LIG/TRNSXJ FLP TUBE ABDL/VAG APPR UNI/BI 1987 [...] Take 2 tablets by mouth once daily. fjoh-deknrf-wti#9-H-yots-boron 784-689-06-1-3 mg tab Take 3 capsules by mouth [...] Naproxen Sodium, Relafen [Nabumetone], Scallops, Seasonal Allergies, Mlrutft-Fhl-Ape Reductase Inhibitors, Toradol [Ketorolac Tromethamine], and Zofran [...] entered by the nurse and reviewed by or Nursing Notes: Jacklyn Euceda LPN 03/01/2023 9:32 [...] which included preparing to see the patient, qbbu-xu-yofx patient care, completing clinical documentation, obtaining and/or reviewing separately obtained history, performing a medically appropriate examination, counseling and educating the patient/family/caregiver, and ordering medications, tests, or procedures. Vargas Olea PA-C documented in this encounter [facility] 03-01-2023 Nurse Note REVIEW OF SYSTEMS: General: [...] Jacklyn Euceda LPN documented in this encounter [facility] 01-28-2023 Miscellaneous Notes The following approved medication requests have been transmitted electronically. Requested Prescriptions Pending Prescriptions Disp Refills levothyroxine (SYNTHROID) 75 mcg tablet [Pharmacy Med Name: LEVOTHYROXINE 75 MCG TABLET] 90 tablet 3 Sig: take 1 tablet by mouth every morning ON AN EMPTY STOMACH Wyatt Barney APRN.ACETONE BUTTON PASTER Patient requesting rx changed to 90 days instead 30 Anastasiya Mcdowell Ma documented in this encounter [facility] 12-18-2022 Miscellaneous Notes Patient has been identified [...] Chinyere Galdamez LPN documented in this encounter [facility] 11-26-2022 Miscellaneous Notes Patient viewed results on mychart 2nd attempt made to contact patient. Left message to call office. Concha Patterson RN Left message to call office. Patients biopsy results are benign. Concha Patterson RN ----- Message from Rose Paez MD sent at 11/20/2022 9:51 AM EDT ----- benign Rose Paez MD documented in this encounter [facility] 11-17-2022 Note HNO ID: [id number] Author: Rose Paez MD Service: ? Author [...] the patient. Rose Paez MD [facility] 10-31-2022 Miscellaneous Notes November 02, 2022 PID: [id number] Herminia Godfrey [address] [place] [address] Dear Ms. Godfrey, We are pleased to [...] report will be kept on file at [facility] as part of your permanent medical record and are available for your continuing care. Thank you for allowing us to help in meeting your health care needs. Sincerely, Dr. Robbins Interpreting Radiologist [facility] (Normal over 40) documented in this encounter [facility] 10-30-2022 Note HNO ID: [id number] Author: RT Dot(Clarisse) Service: ? Author Type: [...] October 30, 2022 8:32 AM [facility] 10-30-2022 History of Present illness Narrative [...] 2022 8:32 AM documented in this encounter [facility] 09-18-2022 Note HNO ID: [id number] Author: Palmira Ding MD Service: ? Author [...] 1ST TRIMESTER) 1977 LAPAROSCOPIC APPENDECTOMY 12/15/15 Appendectomy [facility]. LIG/TRNSXJ FLP TUBE ABDL/VAG APPR UNI/BI 1987 PAST SURGICAL HISTORY OF left eye surgery for dry eye PAST SURGICAL HISTORY OF 2014 DANDC PAST SURGICAL HISTORY OF 2014 tooth extraction TONSILLECTOMY HX ALLERGIES: Ambien [Zolpidem Tartrate], Lipitor [Atorvastatin Calcium], Meloxicam, Naproxen Sodium, Relafen [Nabumetone], Scallops, Seasonal Allergies, Pugqvyt-Fkj-Qfj Reductase Inhibitors, Toradol [Ketorolac Tromethamine], and Zofran [...] ex (more content not included)... [facility] 09-18-2022 History of Present illness Narrative [...] 1ST TRIMESTER) 1977 LAPAROSCOPIC APPENDECTOMY 12/15/15 Appendectomy [facility]. LIG/TRNSXJ FLP TUBE ABDL/VAG APPR UNI/BI 1987 PAST SURGICAL HISTORY OF left eye surgery for dry eye PAST SURGICAL HISTORY OF 2014 D&C PAST SURGICAL HISTORY OF 2014 tooth extraction TONSILLECTOMY HX ALLERGIES: Ambien [Zolpidem Tartrate], Lipitor [Atorvastatin Calcium], Meloxicam, Naproxen Sodium, Relafen [Nabumetone], Scallops, Seasonal Allergies, Xclghsv-Muh-Yoj Reductase Inhibitors, Toradol [Ketorolac Tromethamine], and Zofran [...] 1ST TRIMESTER) 1977 LAPAROSCOPIC APPENDECTOMY 12/15/15 Appendectomy [facility]. LIG/TRNSXJ FLP TUBE ABDL/VAG APPR UNI/BI 1987 [...] lisinopril-hydroCHLOROthiazide (PRINZIDE,ZESTORETIC) 10-12.5 mg per tablet Fish Oil-[place]-3 Fatty Acids (FISH OIL) 300-500 mg cap Biotin 10,000 mcg cap red yeast rice 600 mg tab qajd-uyxhkr-ckz#2-L-qkfh-boron 806-966-50-1-3 mg tab levothyroxine (SYNTHROID) 75 mcg tablet [...] diet of 1000 mg/day for under 50, 1163-7987 mg/day for 50+ - LIPID PANEL BASIC [...] Palmira Ding MD documented in this encounter [facility] 09-18-2022 Nurse Note Patient sees [facility] and has an appt on September with Eye Exam with corrective lens right eye:20/40 left eye:20/50 documented in this encounter [facility] 08-28-2022 Miscellaneous Notes Patient has been identified [...] Shira Brown LPN documented in this encounter [facility] 06-25-2022 Miscellaneous Notes Patient has been identified by name and date of : Yes Patient phones for refill(s): Requested Prescriptions Pending Prescriptions Disp Refills lisinopril-hydroCHLOROthiazide (PRINZIDE,ZESTORETIC) 10-12.5 mg per tablet 30 tablet 11 Sig: Take 1 tablet by mouth once daily. Date of last office visit in primary care: 04/23/22 Please advise. Thank you. Chinyere Galdamez LPN documented in this encounter [facility] 04-23-2022 History of Present illness Narrative Reason [...] 1ST TRIMESTER) 1977 LAPAROSCOPIC APPENDECTOMY 12/15/15 Appendectomy [facility]. LIG/TRNSXJ FLP TUBE ABDL/VAG APPR UNI/BI 1987 [...] and discussed today Current Outpatient Medications: Fish Oil-Attica-3 Fatty Acids (FISH OIL) 300-500 mg cap Biotin 10,000 mcg cap red yeast rice 600 mg tab ppjm-kdohmh-aaw#[id number]-N-dshz-boron [id number] mg tab levothyroxine (SYNTHROID) 75 mcg tablet [...] Palmira Ding MD documented in this encounter [facility] 04-14-2022 Miscellaneous Notes Patient has been identified [...] Alka Posada LPN documented in this encounter [facility] 10-28-2021 Miscellaneous Notes October 28, 2021 PID: [id number] Herminia Godfrey [address] [place] [address] Dear Ms. Godfrey, We are pleased to [...] report will be kept on file at [facility] as part of your permanent medical record and are available for your continuing care. Thank you for allowing us to help in meeting your health care needs. Sincerely, Dr. Pizarro Interpreting Radiologist [facility] (Normal over 40) documented in this encounter [facility] 10-28-2021 History of Present illness Narrative Radiology [...] 2021 8:01 AM documented in this encounter [facility] 10-21-2021 History of Present illness Narrative Reason [...] 1ST TRIMESTER) 1977 LAPAROSCOPIC APPENDECTOMY 12/15/15 Appendectomy [facility]. LIG/TRNSXJ FLP TUBE ABDL/VAG APPR UNI/BI 1987 [...] Palmira Ding MD documented in this encounter [facility] documented as of this encounter (statuses as of 10/21/2021) [facility]2018 History of Past illness Narrative* Problem Noted Date Resolved Date Altered bowel habits 02/25/2018 08/19/2019 Overview: Added automatically from request for surgery [id number] Abnormal mammogram, unspecified 11/09/2012 04/09/2017 documented as of this encounter (statuses as of 10/29/2021) [facility] History of Past illness Narrative* Problem Noted Date Resolved Date Altered bowel habits 02/25/2018 08/19/2019 Overview: Added automatically from request for surgery [id number] Abnormal mammogram, unspecified 11/09/2012 04/09/2017 documented as of this encounter (statuses as of 10/30/2021) [address]-2018 History of Past illness Narrative* Problem Noted Date Resolved Date Altered bowel habits 02/25/2018 08/19/2019 Overview: Added automatically from request for surgery [id number] Abnormal mammogram, unspecified 11/09/2012 04/09/2017 documented as of this encounter (statuses as of 04/10/2022) [address]2018 History of Past illness Narrative* Problem Noted Date Resolved Date Altered bowel habits 02/25/2018 08/19/2019 Overview: Added automatically from request for surgery [id number] Abnormal mammogram, unspecified 11/09/2012 04/09/2017 documented as of this encounter (statuses as of 04/15/2022) [address]2018 History of Past illness Narrative* Problem Noted Date Resolved Date Altered bowel habits 02/25/2018 08/19/2019 Overview: Added automatically from request for surgery [id number] Abnormal mammogram, unspecified 11/09/2012 04/09/2017 documented as of this encounter (statuses as of 04/17/2022) [address]2018 History of Past illness Narrative* Problem Noted Date Resolved Date Altered bowel habits 02/25/2018 08/19/2019 Overview: Added automatically from request for surgery [id number] Abnormal mammogram, unspecified 11/09/2012 04/09/2017 documented as of this encounter (statuses as of 04/23/2022) [address]2018 History of Past illness Narrative* Problem Noted Date Resolved Date Altered bowel habits 02/25/2018 08/19/2019 Overview: Added automatically from request for surgery [id number] Abnormal mammogram, unspecified 11/09/2012 04/09/2017 documented as of this encounter (statuses as of 06/25/2022) [address]2018 History of Past illness Narrative* Problem Noted Date Resolved Date Altered bowel habits 02/25/2018 08/19/2019 Overview: Added automatically from request for surgery [id number] Abnormal mammogram, unspecified 11/09/2012 04/09/2017 documented as of this encounter (statuses as of 08/28/2022) [address]2018 History of Past illness Narrative* Problem Noted Date Resolved Date Altered bowel habits 02/25/2018 08/19/2019 Overview: Added automatically from request for surgery [id number] Abnormal mammogram, unspecified 11/09/2012 04/09/2017 documented as of this encounter (statuses as of 09/18/2022) [address]2018 History of Past illness Narrative* Problem Noted Date Resolved Date Altered bowel habits 02/25/2018 08/19/2019 Overview: Added automatically from request for surgery [id number] Abnormal mammogram, unspecified 11/09/2012 04/09/2017 documented as of this encounter (statuses as of 11/03/2022) [address]2018 History of Past illness Narrative* Problem Noted Date Resolved Date Altered bowel habits 02/25/2018 08/19/2019 Overview: Added automatically from request for surgery [id number] Abnormal mammogram, unspecified 11/09/2012 04/09/2017 documented as of this encounter (statuses as of 11/26/2022) [address]2018 History of Past illness Narrative* Problem Noted Date Resolved Date Altered bowel habits 02/25/2018 08/19/2019 Overview: Added automatically from request for surgery [id number] Abnormal mammogram, unspecified 11/09/2012 04/09/2017 documented as of this encounter (statuses as of 12/19/2022) [address]2018 History of Past illness Narrative* Problem Noted Date Diagnosed Date Resolved Date Altered bowel habits 02/25/2018 020 Overview: Added automatically from request for surgery [id number] Abnormal mammogram, unspecified 11/09/2012 04/09/2017 documented as of this encounter (statuses as of 01/29/2023) [facility] History of Past illness Narrative* Problem Noted Date Diagnosed Date Resolved Date Altered bowel habits 02/25/2018 020 Overview: Added automatically from request for surgery [id number] Abnormal mammogram, unspecified 11/09/2012 04/09/2017 documented as of this encounter (statuses as of 03/01/2023) [facility] History of Past illness Narrative* Problem Noted Date Diagnosed Date Resolved Date Altered bowel habits 02/25/2018 020 Overview: Added automatically from request for surgery [id number] Abnormal mammogram, unspecified 11/09/2012 04/09/2017 documented as of this encounter (statuses as of 03/12/2023) [facility] History of Past illness Narrative* Problem Noted Date Diagnosed Date Resolved Date Altered bowel habits 02/25/2018 020 Overview: Added automatically from request for surgery [id number] Abnormal mammogram, unspecified 11/09/2012 04/09/2017 documented as of this encounter (statuses as of 03/25/2023) [facility] History of Past illness Narrative* Problem Noted Date Diagnosed Date Resolved Date Altered bowel habits 02/25/2018 020 Overview: Added automatically from request for surgery [id number] Abnormal mammogram, unspecified 11/09/2012 04/09/2017 documented as of this encounter (statuses as of 05/23/2023) [address]2018 History of Past illness Narrative* Problem Noted Date Diagnosed Date Resolved Date Altered bowel habits 02/25/2018 020 Overview: Added automatically from request for surgery [id number] Abnormal mammogram, unspecified 11/09/2012 04/09/2017 documented as of this encounter (statuses as of 05/23/2023) [facility] History of Past illness Narrative* Problem Noted Date Diagnosed Date Resolved Date Altered bowel habits 02/25/2018 020 Overview: Added automatically from request for surgery [id number] Abnormal mammogram, unspecified 11/09/2012 04/09/2017 documented as of this encounter (statuses as of 06/16/2023) [facility] History of Past illness Narrative* Problem Noted Date Diagnosed Date Resolved Date Altered bowel habits 02/25/2018 020 Overview: Added automatically from request for surgery [id number] Abnormal mammogram, unspecified 11/09/2012 04/09/2017 documented as of this encounter (statuses as of 06/22/2023) [address]2018 History of Past illness Narrative* Problem Noted Date Diagnosed Date Resolved Date Altered bowel habits 02/25/2018 020 Overview: Added automatically from request for surgery [id number] Abnormal mammogram, unspecified 11/09/2012 04/09/2017 documented as of this encounter (statuses as of 06/22/2023) [address]2018 History of Past illness Narrative* Problem Noted Date Diagnosed Date Resolved Date Altered bowel habits 02/25/2018 020 Overview: Added automatically from request for surgery [id number] Abnormal mammogram, unspecified 11/09/2012 04/09/2017 documented as of this encounter (statuses as of 08/23/2023) [facility] note* Diagnosis Hyperlipidemia, unspecified hyperlipidemia type- Primary Asthmatic bronchitis, unspecified asthma severity, uncomplicated Age-related osteoporosis without current pathological fracture Senile osteoporosis Need for vaccination Need for prophylactic vaccination and inoculation against unspecified single disease Encounter for screening for HIV Acquired hypothyroidism Unspecified hypothyroidism [facility] Diagnosis Encounter for screening mammogram for breast cancer [facility] Diagnosis Vitamin D deficiency- Primary Unspecified vitamin D deficiency Acquired hypothyroidism Unspecified hypothyroidism Essential hypertension Unspecified essential hypertension [facility] Diagnosis Mixed hyperlipidemia- Primary [place] Other specified disease of nail Essential hypertension Unspecified essential hypertension Hypertriglyceridemia Pure hyperglyceridemia [facility] Diagnosis Hypertriglyceridemia Pure hyperglyceridemia documented in this encounter [facility] note* Diagnosis Medicare annual wellness visit, subsequent- Primary Routine general medical examination at a health care facility Mixed hyperlipidemia Essential hypertension Unspecified essential hypertension Acquired hypothyroidism Unspecified hypothyroidism Adjustment insomnia Transient disorder of initiating or maintaining sleep documented in this encounter [facility] note* Diagnosis Asthmatic bronchitis, unspecified asthma severity, uncomplicated [facility] Diagnosis History of colonic polyps- Primary Personal history of colonic polyps Encounter for screening for malignant neoplasm of colon Special screening for malignant neoplasms, colon Family history of colon cancer Family history of malignant neoplasm of gastrointestinal tract documented in this encounter [facility] note* Diagnosis Essential hypertension Unspecified essential hypertension Acquired hypothyroidism Unspecified hypothyroidism Medication management Encounter for long-term (current) use of other medications documented in this encounter [facility] note* Diagnosis Acquired hypothyroidism- Primary Unspecified hypothyroidism Essential hypertension Unspecified essential hypertension Mixed hyperlipidemia Mild intermittent asthmatic bronchitis without complication Vitamin D deficiency Unspecified vitamin D deficiency documented in this encounter [facility] note* Diagnosis Family history of colon cancer- Primary Family history of malignant neoplasm of gastrointestinal tract History of colonic polyps Personal history of colonic polyps documented in this encounter [facility] note* Diagnosis Hypertriglyceridemia Pure hyperglyceridemia documented in this encounter [facility] for referral (narrative)* Diagnostic Procedure Only (Routine) - Closed Specialty Diagnoses / Procedures Referred By Stan bullard Referred To Contact [facility] Diagnoses Encounter for screening mammogram for breast cancer Procedures CLARA SCREENING SCREENING MAMMOGRAPHY BI 2-VIEW BREAST INC CAD Palmira Ding MD [address] [place] [address] [facility] [address] [place] [id number] Referral ID Status Reason Start Date Expiration Date V isits Requested Visits Authorized [id number] Closed Auto-Generate d Referral 09/10/2021 10/10/2022 1 1 [facility] for referral (narrative)* Outpatient Procedure (Routine) - Closed Specialty Diagnoses / Procedures Referred By Stan bullard Referred To Contact [facility] Diagnoses History of colonic polyps Procedures COLONOSCOPY SCREENING COLONOSCOPY FLX DX W/COLLJ SPEC WHEN Vargas Benjamin PA-C [address] [place] [address] [address] Referral ID Status Reason Start Date Expiration Date V isits Requested Visits Authorized [id number] Closed Auto-Generate d Referral 03/01/2023 03/01/2024 1 1 T [facility] for visit Narrative* Outpatient Procedure (Routine) - Closed Specialty Diagnoses / Procedures Referred By Stan bullard Referred To Contact [facility] Diagnoses History of colonic polyps Procedures COLONOSCOPY SCREENING COLONOSCOPY FLX DX W/COLLJ SPEC WHEN Vargas Benjamin PA-C [address] [place] [address] [address] Referral ID Status Reason Start Date Expiration Date V isits Requested Visits Authorized [id number] Closed Auto-Generate d Referral 03/01/2023 03/01/2024 1 1 [facility] Summary Purpose Family History No Family History Records FoundNo Family History Records FoundNo Family History Records Found Advance Directives Documents on File Type Date Recorded 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 [...] DATE CREATED AUTHOR AUTHOR'S ORGANIZ ATION 03/07/2020 [facility] DATE CREATED AUTHOR AUTHOR'S ORGANIZ ATION 07/29/2023 [facility] Source Comments (unrecognize d section and content) In the event this informatio n is protected by the Federal Confidentiality of Alcohol and Drug Abuse Patient Records regulations: The Federal rules restrict any use of the information to criminally investigate or prosecute any alcohol or drug abuse patient.[facility] event this information is protected by the Federal Confidentiality of Alcohol and Drug Abuse Patient Records regulations: The Federal rules restrict any use of the information to criminally investigate or prosecute any alcohol or drug abuse patient.[facility] the event this information is protected by the Federal Confidentiality of Alcohol and Drug Abuse Patient Records regulations: The Federal rules restrict any use of the information to criminally investigate or prosecute any alcohol or drug abuse patient.[facility] the event this information is protected by the Federal Confidentiality of Alcohol and Drug Abuse Patient Records regulations: The Federal rules restrict any use of the information to criminally investigate or prosecute any alcohol or drug abuse patient.[facility] the event this information is protected by the Federal Confidentiality of Alcohol and Drug Abuse Patient Records regulations: The Federal rules restrict any use of the information to criminally investigate or prosecute any alcohol or drug abuse patient.[facility] the event this information is protected by the Federal Confidentiality of Alcohol and Drug Abuse Patient Records regulations: The Federal rules restrict any use of the information to criminally investigate or prosecute any alcohol or drug abuse patient.[facility] the event this information is protected by the Federal Confidentiality of Alcohol and Drug Abuse Patient Records regulations: The Federal rules restrict any use of the information to criminally investigate or prosecute any alcohol or drug abuse patient.[facility] the event this information is protected by the Federal Confidentiality of Alcohol and Drug Abuse Patient Records regulations: The Federal rules restrict any use of the information to criminally investigate or prosecute any alcohol or drug abuse patient.[facility] the event this information is protected by the Federal Confidentiality of Alcohol and Drug Abuse Patient Records regulations: The Federal rules restrict any use of the information to criminally investigate or prosecute any alcohol or drug abuse patient.[facility] the event this information is protected by the Federal Confidentiality of Alcohol and Drug Abuse Patient Records regulations: The Federal rules restrict any use of the information to criminally investigate or prosecute any alcohol or drug abuse patient.[facility] the event this information is protected by the Federal Confidentiality of Alcohol and Drug Abuse Patient Records regulations: The Federal rules restrict any use of the information to criminally investigate or prosecute any alcohol or drug abuse patient.[facility] the event this information is protected by the Federal Confidentiality of Alcohol and Drug Abuse Patient Records regulations: The Federal rules restrict any use of the information to criminally investigate or prosecute any alcohol or drug abuse patient.[facility] the event this information is protected by the Federal Confidentiality of Alcohol and Drug Abuse Patient Records regulations: The Federal rules restrict any use of the information to criminally investigate or prosecute any alcohol or drug abuse patient.[facility] the event this information is protected by the Federal Confidentiality of Alcohol and Drug Abuse Patient Records regulations: The Federal rules restrict any use of the information to criminally investigate or prosecute any alcohol or drug abuse patient.[facility] the event this information is protected by the Federal Confidentiality of Alcohol and Drug Abuse Patient Records regulations: The Federal rules restrict any use of the information to criminally investigate or prosecute any alcohol or drug abuse patient.[facility] the event this information is protected by the Federal Confidentiality of Alcohol and Drug Abuse Patient Records regulations: The Federal rules restrict any use of the information to criminally investigate or prosecute any alcohol or drug abuse patient.[facility] the event this information is protected by the Federal Confidentiality of Alcohol and Drug Abuse Patient Records regulations: The Federal rules restrict any use of the information to criminally investigate or prosecute any alcohol or drug abuse patient.[facility] the event this information is protected by the Federal Confidentiality of Alcohol and Drug Abuse Patient Records regulations: The Federal rules restrict any use of the information to criminally investigate or prosecute any alcohol or drug abuse patient.[facility] the event this information is protected by the Federal Confidentiality of Alcohol and Drug Abuse Patient Records regulations: The Federal rules restrict any use of the information to criminally investigate or prosecute any alcohol or drug abuse patient.[facility] the event this information is protected by the Federal Confidentiality of Alcohol and Drug Abuse Patient Records regulations: The Federal rules restrict any use of the information to criminally investigate or prosecute any alcohol or drug abuse patient.[facility] the event this information is protected by the Federal Confidentiality of Alcohol and Drug Abuse Patient Records regulations: The Federal rules restrict any use of the information to criminally investigate or prosecute any alcohol or drug abuse patient.[facility] the event this information is protected by the Federal Confidentiality of Alcohol and Drug Abuse Patient Records regulations: The Federal rules restrict any use of the information to criminally investigate or prosecute any alcohol or drug abuse patient.[facility] the event this information is protected by the Federal Confidentiality of Alcohol and Drug Abuse Patient Records regulations: The Federal rules restrict any use of the information to criminally investigate or prosecute any alcohol or drug abuse patient.[facility] Reason for Visit (unrecogniz ed section and content) Reason Comments Radiology Mammogram Specialty Diagnoses / Procedures Referred By Contac t Referred To Contact [facility] Diagnoses Encounter for screening mammogram for breast cancer Procedures CALRA SCREENING SCREENING MAMMOGRAPHY BI 2-VIEW BREAST INC Palmira Figueroa MD [address] [place] [address] [facility] [address] [place] [address] Referral ID Status Reason Start Date Expiration Date V isits Requested Visits Authorized [id number] Closed Auto-Generate d Referral 09/10/2021 10/10/2022 1 [...] DDI PATIENT Georgi Lua MD [address] [facility] [place] [address] Vargas Olea PA-C [address] [place] [address] Referral ID Status Reason Start Date Expiration Date Visits Re quested Visits Authorized [id number] Closed 02/15/2023 07/18/2023 1 1 Reason Comments Recheck 6 month follow up Reason Comments Refill Request Care Teams (unrecognized sec tion and content) 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 Relationship Specialty Start Date End Date Palmira Ding MD [address] [place], [place] [id number] PCP - General Internal Medicine 10/07/16 Jesus Marin MD [address] [phone] Home Care Physician Orthopedics 08/06/15 Jesus Marin MD [address] [phone] Referring Orthopedics 08/06/15 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 Relationship Specialty Start Date End Date Palmira Ding MD [address] [place] [address] PCP - General Internal Medicine 10/07/16 Jesus Marin MD [facility] [address] [address] Home Care Physician Orthopedics 08/06/15 Jesus Marin MD [facility] [address] [address] Referring Orthopedics 08/06/15 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 Relationship Specialty Start Date End Date Palmira Ding MD [address] [place] [address] PCP - General Internal Medicine 10/07/16 Jesus Marin MD [facility] [address] [address] Home Care Provider Orthopedics 08/06/15 Jesus Marin MD [facility] [address] [address] Referring Orthopedics 08/06/15 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 Relationship 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 Start Date End Date Palmira Ding MD [address] [place] [address] PCP - General Internal Medicine 10/07/16 Jesus Marin MD [address] [address] Home Care Provider Orthopedics 08/06/15 Jesus Marin MD [facility] [address] [address] Referring Orthopedics 08/06/15 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 Relationship Specialty Start Date End Date Palmira Ding MD [address] [place] [address] PCP - General Internal Medicine 10/07/16 Jesus Marin MD [address] [address] Home Care Provider Orthopedics 08/06/15 Jesus Marin MD [address] [address] Referring Orthopedics 08/06/15 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 Relationship Specialty Start Date End Date Palmira Ding MD [address] [place] [address] PCP - General Internal Medicine 10/07/16 Jesus Marin MD [address] [address] Home Care Provider Orthopedics 08/06/15 Jesus Marin MD [address] [address] Referring Orthopedics 08/06/15 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 Relationship Specialty Start Date End Date Palmira Ding MD [address] [place] [address] PCP - General Internal Medicine 10/07/16 Jesus Marin MD [address] [address] Home Care Provider Orthopedics 08/06/15 Jesus Marin MD [address] [address] [address] Referring Orthopedics 08/06/15 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 Relationship Specialty Start Date End Date Palmira iDng MD [address] [place] [address] PCP - General Internal Medicine 10/07/16 Jesus Marin MD [address] [address] Home Care Provider Orthopedics 08/06/15 Jesus Marin MD [address] [place] [address] Referring Orthopedics 08/06/15 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 Relationship Specialty Start Date End Date Palmira Ding MD [address] [place] [address] PCP - General Internal Medicine 10/07/16 Jesus Marin MD [address] [place] [address] Home Care Provider Orthopedics 08/06/15 Jesus Marin MD [address] [place] [address] Referring Orthopedics 08/06/15 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 Relationship Specialty Start Date End Date Palmira Ding MD [address] [place] [address] PCP - General Internal Medicine 10/07/16 Jesus Marin MD [address] [place] [address] Home Care Provider Orthopedics 08/06/15 Jesus Marin MD [address] [place] [address] Referring Orthopedics 08/06/15 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 Relationship Specialty Start Date End Date Palmira Ding MD [address] [place] [address] PCP - General Internal Medicine 10/07/16 Jesus Marin MD [address] [address] Home Care Provider Orthopedics 08/06/15 Jesus Marin MD [address] [place] [address] Referring Orthopedics 08/06/15 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 Relationship Specialty Start Date End Date Palmira Ding MD [address] [place] [address] PCP - General Internal Medicine 10/07/16 Jesus Marin MD [address] [place] [address] Home Care Provider Orthopedics 08/06/15 Jesus Marin MD [address] [place] [address] Referring Orthopedics 08/06/15 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 Relationship Specialty Start Date End Date Palmira Ding MD [address] [place] [address] PCP - General Internal Medicine 10/07/16 Jesus Marin MD [address] [place] [address] Home Care Provider Orthopedics 08/06/15 Jesus Marin MD [address] [place] [address] Referring Orthopedics 08/06/15 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 Relationship Specialty Start Date End Date Palmira Ding MD [address] [place] [address] PCP - General Internal Medicine 10/07/16 Jesus Marin MD [facility] [address] [address] Home Care Provider Orthopedics 08/06/15 Jesus Marin MD [facility] [address] [address] Referring Orthopedics 08/06/15 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 Relationship Specialty Start Date End Date Palmira Ding MD [address] [place] [address] PCP - General Internal Medicine 10/07/16 Jesus Marin MD [facility] [address] [address] Home Care Provider Orthopedics 08/06/15 Jesus Marin MD [address] [place] [address] Referring Orthopedics 08/06/15 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 Relationship Specialty Start Date End Date Palmira Ding MD [address] [place] [address] PCP - General Internal Medicine 10/07/16 Jesus Marin MD [facility] [address] [address] Home Care Provider Orthopedics 08/06/15 Jesus Marin MD [address] [address] Referring Orthopedics 08/06/15 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 Relationship Specialty Start Date End Date Palmira Ding MD [address] [place] [address] PCP - General Internal Medicine 10/07/16 Jesus Marin MD [address] [place] [address] Home Care Provider Orthopedics 08/06/15 Jesus Marin MD [address] [place] [address] Referring Orthopedics 08/06/15 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 Relationship Specialty Start Date End Date Palmira Ding MD [address] [place] [address] PCP - General Internal Medicine 10/07/16 Jesus Marin MD [address] [place] [address] Home Care Provider Orthopedics 08/06/15 Jesus Marin MD [address] [place] [address] Referring Orthopedics 08/06/15 FOR RECORDS PERTAINING TO [...] BE BASED ON THE PRIMARY CLINICAL RECORDS. [facility], [facility]. provides no warranty or guarantee of the accuracy or completeness of information in this document.
[2023-08-24 21:22] LABS: Hematocrit 21.1 % (37-47); Hemoglobin 6.9 g/dL (12.0-15.0); Mean Corp Hgb Conc 32.7 g/dL (32-36); Mean Corpuscular Hgb 29.5 pg (27.0-32.0); Mean Corpuscular Volume 90.2 fL (81-99); Platelet Count 249 K/mm3 (150-450); RBC Distribution Width CV 14.4 % (11.6-14.6); RBC Distribution Width SD 46.4 fl (35.1-43.9); Red Blood Count 2.34 M/mm3 (4.2-5.4); White Blood Count 9.2 K/mm3 (4.4-11.0)
[2023-08-24] MEDS: Pantoprazole Sodium 40 MG in 0.9% Normal Saline (100mL MB+) 100 ML 330 MG IV (21:37)
[2023-08-25] VITALS (13 sets, daily range): BP systolic 61–139; BP diastolic 44–67; PULSE 81–98; RESP 14–18; TEMP 36.7–37.2; O2SAT 94–100; BMI 24.3
[2023-08-25 00:33] LABS: Bedside Glucose 115 mg/dL (74-106)
--- NOTE | 2023-08-25 00:36 | CT_ITS ---
STUDY: CT FACIAL BONES WITHOUT CONTRAST REASON FOR EXAM: Female, 68 years old. fall RADIATION DOSAGE (If Supplied By Facility): CTDIvol = ( 29.38 ) mGy, DLP = ( 584.19 ) mGycm TECHNIQUE: The patient was scanned in a multi detector CT scanner. Sagittal and coronal images were reconstructed. Individualized dose optimization techniques were used for this CT. COMPARISON: None. FINDINGS: There is mild soft tissue swelling/hematoma overlying the right psychologic arch extending into the anterior wall of the right maxillary sinus, right infraorbital and periorbital region and overlying the right frontal sinus. Mild soft tissue swelling over the right nasal bone. Normal orbital jones and orbital contents. Irregularity along the left anterior nasal bone, cannot exclude a left-sided nasal bone fracture of indeterminate age. Normal facial bones. There is a subtle hairline fracture involving the right anterior frontal bone, image 65, series 5. Normal visualized paranasal sinuses. CT/Sinus/Facial Bone IMPRESSION: Right-sided facial soft tissue swelling involving the right periorbital and supraorbital region with possible subtle hairline fracture through the right anterior frontal bone as described. Possible left nasal bone fracture of indeterminate age, correlation with physical exam and history recommended. No other facial bone fracture seen. Electronically Signed: Patti Cadet MD at 2:05 EST ,
--- NOTE | 2023-08-25 00:36 | CT_ITS ---
STUDY: CT BRAIN WITHOUT CONTRAST REASON FOR EXAM: Female, 68 years old. fall RADIATION DOSAGE (If Supplied By Facility): CTDIvol = ( 44.99 ) mGy, DLP = ( 880.47 ) mGycm TECHNIQUE: Transaxial CT imaging of the brain was performed without administration of intravenous contrast material. Individualized dose optimization techniques were used for this CT. COMPARISON: No relevant priors. FINDINGS: There is soft tissue swelling/hematoma overlying the anterior right frontal sinus, supraorbital region and extending to the right zygomatic arch. Normal calvarium. Normal size ventricles and extra-axial spaces for the patient''s age. Normal white matter tracts of the cerebral hemispheres. Normal basal ganglia and thalami. Normal brainstem. Normal cerebellum. There is no intracranial hemorrhage. There are no findings of an acute ischemic infarction. Normal visualized paranasal sinuses. CT/Brain/Head without Contrast IMPRESSION: Normal unenhanced CT scan of the brain for age. Right frontal and right-sided facial soft tissue swelling/hematoma. Electronically Signed: Patti Cadet MD at 1:18 EST ,
--- NOTE | 2023-08-25 00:36 | CT_ITS ---
STUDY: CT CERVICAL SPINE WITHOUT CONTRAST REASON FOR EXAM: Female, 68 years old. fall RADIATION DOSAGE (If Supplied By Facility): CTDIvol = ( 18.58 ) mGy, DLP = ( 414.21 ) mGycm TECHNIQUE: High resolution transaxial imaging was performed without contrast material. Sagittal and coronal images were reconstructed. Individualized dose optimization techniques were used for this CT. COMPARISON: None FINDINGS: Normal craniovertebral junction. There are degenerative changes of the anterior atlantoaxial articulation. Normal odontoid process. Normal cervical lordosis. Multilevel endplate spondylosis, narrowing of disc height and anterior osteophytosis, more significant from C4 through C7. Otherwise normal alignment of the cervical vertebral bodies. Normal vertebral bodies and posterior osseous elements with no acute fracture.. C2-3: Mild spondylosis. Mild bilateral apophyseal hypertrophy. No central canal stenosis. No neural foraminal encroachment. C3-4: Mild spondylosis. Significant right-sided neural foraminal encroachment. No central canal stenosis. Moderate severe right-sided neural foraminal encroachment. C4-5: Endplate spondylosis with narrowing of disc height. Disc osteophyte complex. Mild bilateral apophyseal hypertrophy. No central canal stenosis. Mild to moderate bilateral foraminal encroachment. C5-6: Endplate spondylosis with narrowing of disc height. Disc osteophyte complex. Mild bilateral apophyseal hypertrophy. No central canal stenosis. Mild to moderate bilateral foraminal encroachment. C6-7: Endplate spondylosis with narrowing of disc height. Disc osteophyte complex. Mild bilateral apophyseal hypertrophy. No central canal stenosis. Mild to moderate bilateral foraminal encroachment. C7-T1: Mild spondylosis. Mild bilateral apophyseal hypertrophy. No central canal stenosis. No neural foraminal encroachment. Normal visualized soft tissue structures. CT/Spine Cervical without Contras IMPRESSION: Multilevel degenerative disease of the cervical spine with no acute fracture or subluxation. Electronically Signed: Patti Cadet MD at 1:56 EST ,
--- NOTE | 2023-08-25 00:38 | PN.HOSP_ITS ---
Hospitalist Note Rapid response was called for patient unwitnessed fall. Patient was assisted to the toilet and after that she does not remember. She states he was in the toilet and then patient was found on the floor with face down and unconscious in the bathroom. After few minutes patient came to normal consciousness, alert emigrant x 3. Protocol for fall followed with putting on hard collar and then rolling whole-body as one logwood from prone to supine position. Patient denies any chest pain or shortness of breath or arrhythmia. She states she has pain over the right face. Right periorbital swelling with some small bloody staining from abrasion right infraorbital region. She denies neck pain or spine pain. On exam PERRLA present, extraocular muscles intact but right upper and lower eyelid is edematous. Head EENT: No julia active bleeding from nostrils, mouth or ears. No nausea or vomiting Lungs: Air entry bilateral equal. Heart S1-S2 regular. Abdomen: Soft nontender nondistended bowel sounds present. No blood in the toilet bowl. : Urine was found in the toilet bowl. Assessment and plan Earlier the patient was admitted for acute GI bleed with acute blood loss anemia. Hemoglobin dropped to 6.9 and 1 unit PRBC ordered just before patient went to bathroom and syncope and consciousness and fall. Twelve-lead EKG and troponin stat ordered. CT head, C-spine and face and sinus without contrast stat ordered. Vitals noted. BP 139/67 heart rate 84/min. No hypoxia or tachypnea. Patient on panel monitor. Patient is scheduled for endoscopy tomorrow a.m. with Dr. Ceballos.
[2023-08-25 00:45] LABS: Hematocrit 20.5 % (37-47); Hemoglobin 6.5 g/dL (12.0-15.0); Mean Corp Hgb Conc 31.7 g/dL (32-36); Mean Corpuscular Hgb 29.3 pg (27.0-32.0); Mean Corpuscular Volume 92.3 fL (81-99); Mean Platelet Vol. 9.2 fl (6.2-12.0); Platelet Count 240 K/mm3 (150-450); RBC Distribution Width CV 14.6 % (11.6-14.6); Red Blood Count 2.22 M/mm3 (4.2-5.4); White Blood Count 13.9 K/mm3 (4.4-11.0)
[2023-08-25 01:14] LABS: Troponin-I HS 8 pg/mL (3.0-54.0)
--- NOTE | 2023-08-25 02:51 | NURSING ---
Called into room, pt on bathroom floor laying prone with primary RN with patient. Staff assist called. Pt able to tell this RN her name, not responding to other questions. WHEY DEPARTMENT OPERATOR called. Vitals obtained. MD arrived to floor, c-collar placed and pt log rolled onto back per MD direction. Vitals taken again. MD checked neuro status and placed orders. Pt denies pain, but repetitively asking what happened. Pt transferred to backboard and back to bed. Transported to CT with this RN, primary RN, NEEDLE PUNCH OPERATOR, and nurse snow removal supervisor. While transporting pt to CT, patient was able to recall what happened and was A&Ox3. Attempted to call pts daughter dae, she did not answer and VM was not set up. Was able to reach daughter Erin to provide update. Erin expressed appreciation for update and care.
--- NOTE | 2023-08-25 03:06 | NURSING ---
rounding on patient, patient requested to use bathroom. assisted to bathroom, patient requested privacy. this RN stood on other side of door, and reminded patient to call if she needed anything. about 1-2 minute later this RN heard a noise and opened door to check on patient. patient found prone on floor, patient responding when asked name. called another RN in, staff assist called and then a PIPE STEM REPAIRER called. vitals taken, MD arrived and c-collar placed. patient log rolled on to back. another set of vitals taken, MD checked neuro status. orders placed. patient still A+Ox1 and still confused about what happened. transported to CT. while transporting to CT, patient able to recall what happened. patient taken back to room, vitals stable and neuro checks completed. no other needs at the time, resting with bed exit alarms on.
--- NOTE | 2023-08-25 05:00 | NURSING ---
Erin called in to ask for an update on colonoscopy time, let her know that we did not know a time yet. Updated that patient is still A&Ox3, vital signs stable, and 1 unit of blood is transfusing, and that the doctor would go over her test results from overnight with them in the morning. No further questions at this time.
[2023-08-25 07:18] LABS: Red Blood Count 2.46 M/mm3 (4.2-5.4); White Blood Count 13.5 K/mm3 (4.4-11.0)
[2023-08-25 07:19] LABS: Absolute Lymphocyte Count 1.39 X10^3/uL (0.83-4.51); Absolute Neutrophil Count 11.5 X10^3/uL (2.0-7.7); Basophil# 0.03 X10^3/uL; Basophil% 0.2 % (0-1); Hematocrit 22.3 % (37-47); Hemoglobin 7.3 g/dL (12.0-15.0); Lymphocyte # 1.39 X10^3/ul (0.83-4.51); Lymphocyte % 10.3 % (19-41); Mean Corp Hgb Conc 32.7 g/dL (32-36); Mean Corpuscular Hgb 29.7 pg (27.0-32.0); Mean Corpuscular Volume 90.7 fL (81-99); Mean Platelet Vol. 9.1 fl (6.2-12.0); Monocyte# 0.43 X10^3/uL; Monocyte% 3.2 % (0-10); NRBC Flagged by Analyzer 0 % (0-5); Neutrophil # 11.54 X10^3/uL (2.7-7.7); Neutrophil % 85.9 % (47-70); Platelet Count 230 K/mm3 (150-450); RBC Distribution Width CV 14.2 % (11.6-14.6); RBC Distribution Width SD 46.1 fl (35.1-43.9)
[2023-08-25 08:00] LABS: AST(SGOT) 16 U/L (15-37); Alanine Aminotransfer ALT/SGPT 14 U/L (13-56)
[2023-08-25 08:12] LABS: Anion Gap 3 (5-15); BUN 36 mg/dL (7-18); BUN/Creat Ratio 65.5 RATIO (10-20); Calcium,Total 8.1 mg/dL (8.5-10.1); Chloride 114 mmol/L (98-107); Creatinine, Serum 0.55 mg/dL (0.55-1.02); EST Glomerular Filtration Rate 117 mL/min (>60); Est Glom Filt Rate - Afr Amer 142 mL/min (>60); Estimated Creatinine Clearance 73.79 ml/min; Glucose 129 mg/dL (74-106); Potassium 3.7 mmol/L (3.5-5.1); Sodium Level 140 mmol/L (136-145); Thyroid Stim Hormone (TSH) 1.79 uIU/mL (0.358-3.74)
[2023-08-25 08:13] LABS: International Normalized Ratio 1.1; Prothrombin Time (Protime)PT. 14.5 SECONDS (11.7-14.9)
[2023-08-25 08:32] LABS: Partial Thromboplast Time 24.6 Seconds (24.1-36.2)
[2023-08-25] MEDS: Pantoprazole Sodium 40 MG in 0.9% Normal Saline (100mL MB+) 100 ML 330 MG IV ×2 (08:41→21:08)
--- NOTE | 2023-08-25 10:15 | CASEMGMT ---
ADEEL ARELLANO Assessment Face to Face with patient for initial transition planning/care coordination assessment. ADEEL ARELLANO introduced self and role at [facility], pt voices understanding. Pt is A&Ox4 and is resting comfortably in bed and is calm. Pt Daughter (Raegan) at bedside. Care providers, pharmacy, and demographics verified. Admitting dx: GI BLEED PAULOE Strata: 1 PCP: TIMUR Specialists: CHANELL YAP [facility]erred [facility]: [facility] Prescription Benefit: Yes LNOK: Raegan Root (EMILY), Vicky Oneil (Emily) Living Arrangements: Pt lives alone in a single story home with 5 steps to enter with no issues. Pt states her daughter is a nurse and lives close by and can help as needed. ADLs/IADLs: Ind Transportation: Pt drives. Pt daughter will drive pt home after DC. DME: Walker and shower chair but states not needing to use. HHC/SNF: Denies SNF History or needs. States history of HHC x 6 years ago for a total knee replacement. Pt states she went to [facility] for OP therapy after completing HHC. Pt?s goal: Home Plan: 6 click = 22. Pt to get a scope today. Pt states she has had dizziness and that she fell in the bathroom here in the hospital. Pt educated on potential vestibular therapy and pt states that she wants to wait and see how she progresses in the hospital before committing to anything. Will follow. Russell Newman RN, CM
--- NOTE | 2023-08-25 12:37 | NEURO.CONS ---
Assessment and Plan: Neuro Assessment/Plan ALEXANDREA GODFREY is a 68 F with a past medical history of hypertension, being evaluated by Teleneurology for syncopal event. The event itself had a prodromal component consistent with presyncope. Afterward there is no clear weakness or focality to symptoms and exam currently is at baseline and nonfocal except for a R eye bruise from the fall. Her imaging is benign. At this time ddx is orthostatic hypotension related to her recent GIB, cannot rule out other causes of symptoms including cardiac or vasovagal. Unlikely primary neurologic cause given her other historic factors. - orthostatic vitals per primary team. If no further syncopal episodes, no further workup at this time. If continues to have syncopal episodes and normal orthostatic, recommend reaching out to Teleneurology for additional evaluation. No further workup at this time currently. I personally attended this patient and spent a total time of 30 minutes evaluating this patient including clinical assessment, review of chart, medical history imaging, and determining appropriate treatment and workup. HPI Consult Data Date of Consult: 08/25/23 HPI Narrative HPI Narrative: ALEXANDREA GODFREY, is a 68 F with a history of hypertension and hypothyroidism who presented to [facility] ED 08/24/2023 with several days of diarrhea that has been dark and dizziness with palpitations. In the ED she had a maroon stool and was also found to have a hemoglobin of 9.1, no other previous or recent values but was hypotensive and tachycardic. GI contacted and patient be taken for scope. Patient seen in ED prior to being taken for EGD. She reports that on Wednesday she started having dark diarrhea and has been dizzy and having palpitations, it has just been worsening and today had the maroon stools in the ED. No abdominal pain, no other specific complaints. Earlier the patient was admitted for acute GI bleed with acute blood loss anemia. Hemoglobin dropped to 6.9 and 1 unit PRBC ordered just before patient went to bathroom and syncope and consciousness and fall. Twelve-lead EKG and troponin stat ordered. CT head, C-spine and face and sinus without contrast stat ordered. Vitals noted. BP 139/67 heart rate 84/min. No hypoxia or tachypnea. Patient on radiographer cardiac catheterization. Patient is scheduled for endoscopy tomorrow a.m. with Dr. Friend. Neurologic History Consulted for fall and dizziness. Pt never had a fall previously, was admitted for GIb. Was in restroom when symptoms started, felt dizzy prior to the event. Dizziness described as lightheadedness. She hit the R side of her head but when she woke up she was aware of everything around her and noted there were many people around her. She denies vision problems after, numbness on one side over another, or weakness on side over another. Pt has never had this happen before. Denies headache, has not stood up but coming from laying to sitting position has not been symptomatic. Pt denies neck pain. Never had history of seizure. [facility] Medical History Arthritis Palpitations Thyroid disease Home Medications fenofibrate nanocrystallized 145 mg tablet 145 mg PO DAILY 12/16/15 [History Last Taken 08/24/23 06:30] levothyroxine 75 mcg tablet 75 mcg PO DAILY 12/16/15 [History Last Taken 08/24/23] lisinopril 10 mg-hydrochlorothiazide 12.5 mg tablet (Zestoretic) 1 tab PO DAILY 12/16/15 [History Last Taken 08/24/23] albuterol sulfate 90 mcg/actuation aerosol inhaler inhalation 08/24/23 [History Last Taken Unknown] Allergy/AdvReac Type Severity Reaction Status Date / Time scallops Allergy Itching Verified 08/24/23 13:05 zolpidem [From Ambien] AdvReac Mild Other Verified 08/24/23 16:46 atorvastatin [From Lipitor] AdvReac Other Verified 08/24/23 16:46 ketorolac tromethamine AdvReac Other Verified 08/24/23 13:05 [From Toradol] meloxicam AdvReac Other Verified 08/24/23 16:46 nabumetone [From Relafen] AdvReac Other Verified 08/24/23 16:46 naproxen AdvReac Upset Verified 08/24/23 16:46 Stomach ondansetron [From Zofran] AdvReac Other Verified 08/24/23 16:46 tramadol AdvReac Nausea Verified 08/24/23 13:05 Social History (Updated 08/24/23 @ 13:[address] Rolly Clarke MD) household members: none Smoking Status: Never smoker Vital Signs Vital Signs Vital Signs: 08/24/23 14:41 08/24/23 16:21 08/24/23 17:45 Temperature 99.6 F H 97.5 F L Temperature Source Temporal Pulse Rate 89 89 100 Respiratory Rate 15 12 16 Respiratory Effort Respiratory Depth Respiratory Pattern Normal Blood Pressure 116/64 112/66 104/48 L Blood Pressure [BP] Blood Pressure Mean 81 81 66 Blood Pressure Mean [BP] Blood Pressure Source Monitor Blood Pressure Position Semi-Fowlers Blood Pressure Location Right Arm Baseline BP 116/64 Pulse Ox 100 99 98 Oxygen Delivery Method Room Air 08/24/23 17:50 08/24/23 17:55 08/24/23 18:53 Temperature 97.6 F L 98.3 F Temperature Source Temporal Temporal Pulse Rate 89 88 86 Respiratory Rate 16 16 16 Respiratory Effort Respiratory Depth Respiratory Pattern Blood Pressure 111/54 L 101/53 L 112/55 L Blood Pressure [BP] Blood Pressure Mean 73 69 74 Blood Pressure Mean [BP] Blood Pressure Source Monitor Monitor Monitor Blood Pressure Position Semi-Fowlers Semi-Fowlers Semi-Fowlers Blood Pressure Location Right Arm Right Arm Left Arm Baseline BP 116/64 116/64 Pulse Ox 99 99 100 Oxygen Delivery Method Room Air Room Air Room Air 08/24/23 22:00 08/25/23 01:10 08/25/23 02:15 Temperature 98.4 F 98.6 F Temperature Source Oral Oral Pulse Rate 88 86 Respiratory Rate 18 Respiratory Effort Normal Non-Labored Respiratory Depth Normal Respiratory Pattern Normal Blood Pressure 102/52 L 117/62 Blood Pressure [BP] Blood Pressure Mean 68 80 Blood Pressure Mean [BP] Blood Pressure Source Monitor Monitor Blood Pressure Position Semi-Fowlers Semi-Fowlers Blood Pressure Location Left Arm Left Arm Baseline BP Pulse Ox 100 99 Oxygen Delivery Method Room Air Room Air Room Air 08/25/23 01:50 08/25/23 02:30 08/25/23 00:15 Temperature 98.5 F Temperature Source Oral Pulse Rate 82 81 Respiratory Rate 18 Respiratory Effort Normal Non-Labored Respiratory Depth Normal Respiratory Pattern Normal Blood Pressure 118/52 L Blood Pressure [BP] 61/44 L Blood Pressure Mean 74 Blood Pressure Mean [BP] 49 Blood Pressure Source Monitor Blood Pressure Position Semi-Fowlers Blood Pressure Location Left Arm Baseline BP Pulse Ox 100 Oxygen Delivery Method Room Air 08/25/23 00:20 08/25/23 03:29 08/25/23 03:30 Temperature 98.3 F 99.0 F Temperature Source Oral Oral Pulse Rate 87 85 Respiratory Rate 18 18 Respiratory Effort Respiratory Depth Respiratory Pattern Blood Pressure 114/56 L 115/63 Blood Pressure [BP] 139/67 H Blood Pressure Mean 75 80 Blood Pressure Mean [BP] 91 Blood Pressure Source Monitor Monitor Blood Pressure Position Semi-Fowlers Semi-Fowlers Blood Pressure Location Left Arm Left Arm Baseline BP Pulse Ox 94 100 95 Oxygen Delivery Method Room Air Room Air Room Air 08/25/23 05:05 08/25/23 06:26 08/25/23 08:45 Temperature 98.6 F 98.3 F Temperature Source Oral Oral Pulse Rate 85 81 Respiratory Rate 18 18 Respiratory Effort Normal Non-Labored Respiratory Depth Normal Respiratory Pattern Normal Blood Pressure 122/56 H 110/59 L Blood Pressure [BP] Blood Pressure Mean 78 76 Blood Pressure Mean [BP] Blood Pressure Source Monitor Monitor Blood Pressure Position Semi-Fowlers Semi-Fowlers Blood Pressure Location Left Arm Left Arm Baseline BP Pulse Ox 95 100 Oxygen Delivery Method Room Air Room Air Room Air 08/25/23 10:34 Temperature 98.1 F Temperature Source Oral Pulse Rate 98 Respiratory Rate 16 Respiratory Effort Respiratory Depth Respiratory Pattern Blood Pressure 118/65 Blood Pressure [BP] Blood Pressure Mean 82 Blood Pressure Mean [BP] Blood Pressure Source Monitor Blood Pressure Position Semi-Fowlers Blood Pressure Location Right Arm Baseline BP Pulse Ox 98 Oxygen Delivery Method Room Air Weight Weight: 77.111 kg Body Mass Index (BMI) 24.3 Physical Exam Narrative -? General: Laying comfortably in bed; in no acute distress. -? HENT: Normal oropharynx and mucosa. Normal external appearance of ears and nose. Exophthalmos. -? Neck: Supple, no pain or tenderness -? CV:? No peripheral edema. -? Pulmonary:? Normal respiratory effort. -? Ext: No cyanosis, edema, or deformity -? Skin: No rash. Normal palpation of skin.? -? Musculoskeletal: full range of motion; no joint tenderness. Normal digits and nails by inspection. No clubbing. -? NEURO: -? Mental Status: The patient was alert and oriented to time, place, and person. Normal recent/remote memory, concentration, and general fund of knowledge. -? Language: speech is clear.? Naming, repetition, fluency, and comprehension intact. -? Cranial Nerves: PERRL 3 mm/brisk. EOMI, visual diaz full, R eye with large bruise and swelling with slight ptosis, facial sensation intact, hearing intact, tongue midline, no evidence of atrophy or fibrillations. -? Motor: normal bulk, tone, and strength throughout. No pronator drift or satelliting. Upper and lower extremities equal bilaterally. -?Detailed strength exam as performed by the nurse/JUAN and witnessed by the physician: R L SA 5 5 EE 5 5 EF 5 5 WE WF Loading Supervisor 5 5 HF KE 5 5 KF 5 5 DF 5 5 PF -? Tone: is normal and bulk is normal -? Sensation- Intact to light touch bilaterally -? Coordination: No dysmetria on [id number], finger follow finger or [id number]. -? Gait- deferred Lab / Micro Data 08/25/23 06:40 08/25/23 06:40 Labs: Laboratory Results - last 24 hr 08/24/23 13:00: WBC 11.7 H, RBC 3.11 L, Hgb 9.1 L, Hct 28.3 L, MCV 91.0, MCH 29.3, MCHC 32.2, RDW Std Deviation 47.7 H, RDW Coeff of Masood 14.5, Plt Count 316, MPV 9.0, Immature Gran % (Auto) 0.700, Neut % (Auto) 85.7 H, Lymph % (Auto) 11.1 L, Williamson % (Auto) 2.1, Eos % (Auto) 0.0, Baso % (Auto) 0.4, Absolute Neuts (auto) 10.0 H, Absolute Lymphs (auto) 1.30, Nucleated RBC % 0, Sodium 135 L, Potassium 4.0, Chloride 106, Carbon Dioxide 25.0, Anion Gap 4 L, BUN 43 H, Creatinine 0.77, Estim Creat Clear Calc 73.79, Est GFR (MDRD) Af Amer 96, Est GFR (MDRD) Non-Af 79, BUN/Creatinine Ratio 55.6 H, Glucose 140 H, Calcium 9.1 08/24/23 15:59: Blood Type A POSITIVE, Antibody Screen NEGATIVE 08/24/23 17:00: WBC 10.8, RBC 2.76 L, Hgb 8.1 L, Hct 25.3 L, MCV 91.7, MCH 29.3, MCHC 32.0, RDW Std Deviation 48.1 H, RDW Coeff of Masood 14.5, Plt Count 281, MPV 9.1 08/24/23 21:05: WBC 9.2, RBC 2.34 L, Hgb 6.9 L, Hct 21.1 L, MCV 90.2, MCH 29.5, MCHC 32.7, RDW Std Deviation 46.4 H, RDW Coeff of Masood 14.4, Plt Count 249, MPV 9.0 08/25/23 00:14: POC Glucose 115 H 08/25/23 00:30: WBC 13.9 H, RBC 2.22 L, Hgb 6.5 L, Hct 20.5 L, MCV 92.3, MCH 29.3, MCHC 31.7 L, RDW Std Deviation 49.0 H, RDW Coeff of Masood 14.6, Plt Count 240, MPV 9.2, Troponin I High Sens 8 08/25/23 00:45: Crossmatch See Detail 08/25/23 06:40: WBC 13.5 H, RBC 2.46 L, Hgb 7.3 L, Hct 22.3 L, MCV 90.7, MCH 29.7, MCHC 32.7, RDW Std Deviation 46.1 H, RDW Coeff of Masood 14.2, Plt Count 230, MPV 9.1, Immature Gran % (Auto) 0.400, Neut % (Auto) 85.9 H, Lymph % (Auto) 10.3 L, Williamson % (Auto) 3.2, Eos % (Auto) 0.0, Baso % (Auto) 0.2, Absolute Neuts (auto) 11.5 H, Absolute Lymphs (auto) 1.39, Nucleated RBC % 0, PT 14.5, INR 1.1, APTT 24.6, Sodium 140, Potassium 3.7, Chloride 114 H, Carbon Dioxide 23.0, Anion Gap 3 L, BUN 36 H, Creatinine 0.55, Estim Creat Clear Calc 73.79, Est GFR (MDRD) Af Amer 142, Est GFR (MDRD) Non-Af 117, BUN/Creatinine Ratio 65.5 H, Glucose 129 H, Calcium 8.1 L, AST 16, ALT 14, TSH 1.79 Imaging Radiology Impression Chest/Abdomen/Pelvis CTA 08/24/23 17:46 IMPRESSION: No aneurysm or dissection. No active hemorrhage seen. No obstruction. No focal infiltrate. Electronically Signed: Gerald Jauregui MD at 20:47 EST , Brain CT 08/25/23 00:36 IMPRESSION: Normal unenhanced CT scan of the brain for age. Right frontal and right-sided facial soft tissue swelling/hematoma. Electronically Signed: Patti Cadet MD at 1:18 EST Reading Location ID and State: [facility] / [place] , Service support , ADDENDUM: 08/25/23 0214 IMPRESSION: undefined ADDENDUM: 08/25/23 0557 IMPRESSION: undefined Cervical Spine CT 08/25/23 00:36 IMPRESSION: Multilevel degenerative disease of the cervical spine with no acute fracture or subluxation. Electronically Signed: Patti Cadet MD at 1:56 EST , Facial/Sinus 08/25/23 00:36 IMPRESSION: Right-sided facial soft tissue swelling involving the right periorbital and supraorbital region with possible subtle hairline fracture through the right anterior frontal bone as described. Possible left nasal bone fracture of indeterminate age, correlation with physical exam and history recommended. No other facial bone fracture seen. Electronically Signed: Patti Cadet MD at 2:05 EST , Active Medications Active Medications Active Medications: Current Medications Generic Name Dose Route Start Last Admin Trade Name Freq PRN Reason Stop Dose Admin Acetaminophen 650 mg 08/24/23 18:41 Acetaminophen 325 Mg Tablet PO Q6H PRN PRN Pain 1-10 Or Fever >100.7 Albuterol Sulfate 2.5 mg 08/24/23 18:41 Albuterol 2.5 Mg/3 Ml Vial.Neb. INHALATION Q2H PRN PRN SOB/Wheezing Bisacodyl 20 mg 08/25/23 14:00 Bisacodyl 5 Mg Tablet PO 08/25/23 14:01 1400 EDEL Pantoprazole Sodium 40 mg/ 110 mls @ 330 mls/hr 08/24/23 22:00 08/25/23 09:30 Sodium Chloride IV Infused Q12 EDEL Infusion Sodium Chloride 250 mls @ 15 mls/hr 08/24/23 18:48 IV .[id number] PRN Additional IVPB Infusion Sodium Chloride 250 mls @ 15 mls/hr 08/24/23 18:48 IV .[id number] PRN Saline Flush Levothyroxine Sodium 75 mcg 08/25/23 06:00 08/25/23 06:48 Levothyroxine 75 Mcg Tablet PO Not Given DAILY@0600 EDEL Melatonin 3 mg 08/24/23 18:41 Melatonin 3 Mg Tablet PO QHS PRN PRN INSOMNIA Ondansetron HCl 4 mg 08/24/23 18:41 Ondansetron 4 Mg/2 Ml Vial IV Q8H PRN PRN NAUSEA/VOMITING Polyethylene Glycol 0 bottle 08/25/23 16:00 Polyethylene Glycol 3350 Bowel Prep PO 08/25/23 16:01 1600 EDEL Senna/Docusate Sodium 2 tablet 08/24/23 18:41 Senna/Docusate Sodium 1 Tablet PO BID PRN PRN Constipation Sodium Chloride 10 - 40 ml 08/24/23 18:48 0.9% Saline Lock 10 Ml Syringe IV UD PRN SALINE FLUSH
--- NOTE | 2023-08-25 14:39 | CHAPLAIN ---
Type of Pastoral Visit ___ Initial Visit _x__ Follow-up Visit ___ On-call Visit ___ General Patient Visit ___ Spiritual Assessment ___ Family Conference ___ Bereavement ___ Rapid Response ___ Code Blue ___ Other (describe below) Pastoral Care Referral From _x__ Patient _x__ Family ___ Nurse ___ Physician ___ Director Of Contracts ___ Elementary Education Teacher ___ Other (describe below) Sacrament/Intervention _x__ Active listening ___ Anointing ___ Rastafari ___ Bereavement ___ Communion ___ Kaye exploration ___ ___ Life review _x__ Prayer ___ Reconciliation ___ Sacrament of Sick _x__ Supportive presence ___ Wedding ___ Other (describe below) Pastoral Comments 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
--- NOTE | 2023-08-25 15:28 | PN.HOSP_ITS ---
Reason for Visit Reason for Visit: Diagnoses Anemia, unspecified (08/24/23) Hypothyroidism, unspecified (08/24/23) Essential (primary) hypertension (08/24/23) Gastrointestinal hemorrhage, unspecified (08/24/23) Subjective Subjective Patient admitted yesterday afternoon for several day history of dark stools and dizziness with palpitations. Found to have anemia with high concern for GI bleed, s/p EGD with Dr. Ceballos yesterday evening with grade 2 esophageal varices noted as well as a single nonbleeding angiodysplastic lesion in the stomach t reated with heater probe. Overnight, patient unfortunately had an unwitnessed fall as documented in Dr. Nguyen's quick note. CT head, C-spine and face and sinus contrast with no acute findings. Patient noted to have significant right periorbital swelling and an abrasion in the right infraorbital region secondary to the fall. Patient seen at bedside the morning, daughter present. Patient was sitting up comfortably in bed, conversing normally, in no acute distress. Patient has significant right-sided facial swelling this morning but states she does not have any pain in this area at this time. Her vision from her right eye is slightly worsened due to the significant swelling but she has no eye pain with movement noted. States she has continued to have dark bowel movements overnight and this morning, similar to previous. She otherwise denies any acute symptoms at rest. Denies any chest pain, shortness of breath, fever or chills. No other acute concerns this time. Objective Data Objective Data Vital Signs: Vital Signs Temp Pulse Resp BP Pulse Ox O2 Del Method 98.9 F 89 16 137/60 H 98 Room Air 08/25/23 15:22 08/25/23 15:22 08/25/23 15:22 08/25/23 15:22 08/25/23 15:22 08/25/23 15:22 Oxygen Delivery Method Room Air Weight: 77.111 kg Body Mass Index (BMI) 24.3 Intake & Output: Intake and Output for Last 24 Hours 08/23/23 08/24/23 08/25/23 23:59 23:59 23:59 Intake Total 1145 / 1145 1111 / 1111 Balance 1145 / 1145 1111 / 1111 Lab / Micro Data 08/25/23 06:40 08/25/23 06:40 Labs: Laboratory Results - last 24 hr 08/24/23 15:59: Blood Type A POSITIVE, Antibody Screen NEGATIVE 08/24/23 17:00: WBC 10.8, RBC 2.76 L, Hgb 8.1 L, Hct 25.3 L, MCV 91.7, MCH 29.3, MCHC 32.0, RDW Std Deviation 48.1 H, RDW Coeff of Masood 14.5, Plt Count 281, MPV 9.1 08/24/23 21:05: WBC 9.2, RBC 2.34 L, Hgb 6.9 L, Hct 21.1 L, MCV 90.2, MCH 29.5, MCHC 32.7, RDW Std Deviation 46.4 H, RDW Coeff of Masood 14.4, Plt Count 249, MPV 9.0 08/25/23 00:14: POC Glucose 115 H 08/25/23 00:30: WBC 13.9 H, RBC 2.22 L, Hgb 6.5 L, Hct 20.5 L, MCV 92.3, MCH 29.3, MCHC 31.7 L, RDW Std Deviation 49.0 H, RDW Coeff of Masood 14.6, Plt Count 240, MPV 9.2, Troponin I High Sens 8 08/25/23 00:45: Crossmatch See Detail 08/25/23 06:40: WBC 13.5 H, RBC 2.46 L, Hgb 7.3 L, Hct 22.3 L, MCV 90.7, MCH 29.7, MCHC 32.7, RDW Std Deviation 46.1 H, RDW Coeff of Masood 14.2, Plt Count 230, MPV 9.1, Immature Gran % (Auto) 0.400, Neut % (Auto) 85.9 H, Lymph % (Auto) 10.3 L, [place] % (Auto) 3.2, Eos % (Auto) 0.0, Baso % (Auto) 0.2, Absolute Neuts (auto) 11.5 H, Absolute Lymphs (auto) 1.39, Nucleated RBC % 0, PT 14.5, INR 1.1, APTT 24.6, Sodium 140, Potassium 3.7, Chloride 114 H, Carbon Dioxide 23.0, Anion Gap 3 L, BUN 36 H, Creatinine 0.55, Estim Creat Clear Calc 73.79, Est GFR (MDRD) Af Amer 142, Est GFR (MDRD) Non-Af 117, BUN/Creatinine Ratio 65.5 H, Glucose 129 H, Calcium 8.1 L, AST 16, ALT 14, TSH 1.79 Radiography Diagnostic Testing: Radiology Impression Chest/Abdomen/Pelvis CTA 08/24/23 17:46 IMPRESSION: No aneurysm or dissection. No active hemorrhage seen. No obstruction. No focal infiltrate. Electronically Signed: Gerald Jauregui MD at 20:47 EST , Brain CT 08/25/23 00:36 IMPRESSION: Normal unenhanced CT scan of the brain for age. Right frontal and right-sided facial soft tissue swelling/hematoma. 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 Electronically Signed: Patti Cadet MD at 1:56 EST , Facial/Sinus 08/25/23 00:36 IMPRESSION: Right-sided facial soft tissue swelling involving the right periorbital and supraorbital region with possible subtle hairline fracture through the right anterior frontal bone as described. Possible left nasal bone fracture of indeterminate age, correlation with physical exam and history recommended. No other facial bone fracture seen. Electronically Signed: Patti Cadet MD at 2:05 EST , Physical Exam Const alert, oriented x3, no apparent distress and average body habitus Constitutional Narrative: Pleasant elderly female, sitting up comfortably in bed, conversing normally, no acute distress. General Appearance: cooperative and comfortable HEENT normocephalic, head/scalp atraumatic, hearing grossly normal bilaterally and nasal mucous membranes and turbinates normal HEENT Narrative: Significant right facial swelling noted secondary to recent fall. Mild abrasion noted in infraorbital region. Eyes PERRL, EOMs intact bilaterally and conjunctivae normal Neck full ROM, no lymphadenopathy and supple Lymph Lymphatic: no lymphadenopathy noted Chest inspection of chest normal Resp normal respiratory effort, normal air movement, no use of accessory muscles and clear to auscultation bilaterally Cardio regular rate, regular rhythm, no murmurs and peripheral pulses 2+ throughout GI normal to inspection, nondistended, normoactive bowel sounds, soft to palpation, non-tender and non-distended Back/Spine normal ROM Extremity normal to inspection, full ROM and no pedal edema Skin no rashes or lesions noted Neuro no focal motor deficits and no sensory deficits noted Speech: speech normal Psych mental status grossly normal Assessment & Plan Assessment/Plan (1) Acute gastrointestinal bleeding: (2) Symptomatic anemia: PLAN: Plan Patient is a 68-year-old female who presented to [facility] ED on 08/24/2023 with several day history of dark stools. 1. Symptomatic anemia with GI bleed; new diagnosis of grade 2 esophageal varices Hemoglobin 9.1 on admit, no recent values for comparison the patient was hypotensive and tachycardic on arrival and had witnessed maroon-colored stools. Also had elevated BUN/Cr ratio suggestive of upper GI bleed. S/p EGD on 08/24 with grade 2 esophageal varices noted as well as a single nonbleeding angiodysplastic lesion in the stomach treated with heater probe. CT chest abdomen pelvis with IV contrast on 08/24 showed no evidence of liver disease, no other significant abnormalities. ? GI following. Hemoglobin walt of 6.5 on organ grinder of 08/25, s/p 1 unit of packed red blood cells with improvement of hemoglobin to 7.4. Continue IV PPI twice daily. Patient hemodynamically stable, okay to monitor hemoglobin daily. Will defer to GI on possible need for colonoscopy. Unclear in etiology for esophageal varices as patient has no liver disease or other abnormalities noted on imaging, appreciate further GI recommendations regarding this. 2. Syncopal episode with fall and superficial facial injuries Had unwitnessed fall on organ grinder of 08/25. CT head, C-spine and face and sinus contrast with no acute findings. Significant right facial hematoma with mild abrasion and right infraorbital region noted after fall. ? Neurology evaluated. High suspicion is for vasovagal syncope in setting of anemia as noted above. Monitor, no need for further workup at this time. 3. Mild leukocytosis ? WBC count 13 after EGD. Suspect secondary to acute stress state, low concern for active infection. Monitor daily CBC. Chronic medical conditions: ? Hypertension: Holding home lisinopril?hydrochlorothiazide. ? Hypothyroidism: Continue home Synthroid. ? Hyperlipidemia: Continue home fenofibrate. DVT prophylaxis: SCDs CODE STATUS: Full code, verified Expect disposition: TBD Total clinical time spent by myself addressing the patient's medical issues, reviewing all the data, and collaborating with patient's care team: 35 minutes. Charges/Coding Visit Charges Inpatient E&M: 15458 Subs Hosp L2
[2023-08-25] MEDS: Bisacodyl 5 MG Tablet 20 MG PO (15:32)
[2023-08-25] MEDS: Polyethylene Glycol 3350 BOWEL PREP PO (18:17)
[2023-08-25] MEDS: 0.9% Saline Lock 10 ML Syringe IV (21:09)
[2023-08-26] VITALS (13 sets, daily range): BP systolic 116–141; BP diastolic 55–68; PULSE 73–92; RESP 13–16; TEMP 36.4–36.9; O2SAT 99–100; BMI 23.7
[2023-08-26 02:24] LABS: Hematocrit 20.7 % (37-47); Hemoglobin 6.7 g/dL (12.0-15.0); Mean Corp Hgb Conc 32.4 g/dL (32-36); Mean Corpuscular Hgb 29.5 pg (27.0-32.0); Mean Corpuscular Volume 91.2 fL (81-99); Mean Platelet Vol. 9.1 fl (6.2-12.0); Platelet Count 224 K/mm3 (150-450); RBC Distribution Width CV 14.8 % (11.6-14.6); RBC Distribution Width SD 47.9 fl (35.1-43.9); Red Blood Count 2.27 M/mm3 (4.2-5.4)
[2023-08-26 02:43] LABS: Anion Gap 3 (5-15); BUN 25 mg/dL (7-18); BUN/Creat Ratio 47.2 RATIO (10-20); Calcium,Total 8.3 mg/dL (8.5-10.1); Chloride 111 mmol/L (98-107); Creatinine, Serum 0.53 mg/dL (0.55-1.02); EST Glomerular Filtration Rate 122 mL/min (>60); Est Glom Filt Rate - Afr Amer 148 mL/min (>60); Estimated Creatinine Clearance 73.79 ml/min; Glucose 124 mg/dL (74-106); Potassium 3.2 mmol/L (3.5-5.1); Sodium Level 137 mmol/L (136-145)
[2023-08-26] MEDS: Lactated Ringers 1,000 ML 15 ML IV (06:08)
--- NOTE | 2023-08-26 07:31 | OP.COLON_ITS ---
Patient Name: Herminia Pinon Procedure Date: 08/26/2023 6:23 AM Date of : 1955 Age: 68 Procedure: Colonoscopy Indications: Gastrointestinal bleeding Providers: Nav Ceballos DO Medicines: Monitored Anesthesia Care Patient Profile: This is a 68 year old female. Refer to note in patient chart for documentation of history and physical. Last Colonoscopy: within the past 3 years. Complications: No immediate complications. Procedure: Pre-Anesthesia Assessment: - Prior to the procedure, a History and Physical was performed, and patient medications and allergies were reviewed. The patient is competent. The risks and benefits of the procedure and the sedation options and risks were discussed with the patient. All questions were answered and informed consent was obtained. Patient identification and proposed procedure were verified by the physician in the pre-procedure area. Mental Status Examination: alert and oriented. Airway Examination: normal oropharyngeal airway and neck mobility. Respiratory Examination: clear to auscultation. CV Examination: normal. Prophylactic Antibiotics: The patient does not require prophylactic antibiotics. Prior Anticoagulants: The patient has taken no anticoagulant or antiplatelet agents. ASA Grade Assessment: III - A patient with severe systemic disease. After reviewing the risks and benefits, the patient was deemed in satisfactory condition to undergo the procedure. The anesthesia plan was to use monitored anesthesia care (MAC). Immediately prior to administration of medications, the patient was re-assessed for adequacy to receive sedatives. The heart rate, respiratory rate, oxygen saturations, blood pressure, adequacy of pulmonary ventilation, and response to care were monitored throughout the procedure. The physical status of the patient was re-assessed after the procedure. After I obtained informed consent, the scope was passed under direct vision. Throughout the procedure, the patient's blood pressure, pulse, and oxygen saturations were monitored continuously. The Colonoscope was introduced through the anus and advanced to the cecum, identified by appendiceal orifice and ileocecal valve. The colonoscopy was performed without difficulty. The patient tolerated the procedure well. The quality of the bowel preparation was inadequate. The terminal ileum, ileocecal valve, appendiceal orifice, and rectum were photographed. Scope In: 6:54:05 AM Scope Withdrawal Time 0 hours 13 minutes 41 seconds Scope Out: 7:18:01 AM Total Procedure Duration Time 0 hours 23 minutes 56 seconds Findings: The perianal and digital rectal examinations were normal. Many small and large-mouthed diverticula were found in the recto-sigmoid colon, sigmoid colon and descending colon. Hematin (altered blood/knpgxm-weizam-wuxx material) was found in the entire colon. Impression: - Preparation of the colon was inadequate. - Diverticulosis in the recto-sigmoid colon, in the sigmoid colon and in the descending colon. - Blood in the entire examined colon. - No specimens collected. Recommendation: - [facility]. - Clear liquid diet today. - Continue present medications. - Repeat colonoscopy because the bowel preparation was suboptimal. - capsule endoscopy Procedure Code(s): --- Professional --- 43350, Colonoscopy, flexible; diagnostic, including collection of specimen(s) by brushing or washing, when performed (separate procedure) CPT copyright 2021 [employer]. All rights reserved. The codes documented in this report are preliminary and upon sanitary chemist review may be revised to meet current compliance requirements. Nav Ceballos DO 08/26/2023 7:30:06 AM This report has been signed electronically. Number of Addenda: 0 Note Initiated On: 08/26/2023 6:23 AM
--- NOTE | 2023-08-26 07:31 | OP.CCLET_ITS ---
08/26/2023 Palmira Felix [address] [place] [address] Re : Colonoscopy procedure for Herminia Pinon Dear Dr. Felix This procedure was performed on August. My impressions and recommendations are as follows: Impressions : - Preparation of the colon was inadequate. - Diverticulosis in the recto-sigmoid colon, in the sigmoid colon and in the descending colon. - Blood in the entire examined colon. - No specimens collected. Recommendations : - [facility]. - Clear liquid diet today. - Continue present medications. - Repeat colonoscopy because the bowel preparation was suboptimal. - capsule endoscopy My findings are described in the full procedure note, which is enclosed. If I can be of further assistance, please feel free to contact me at . Sincerely, Nav Ceballos, 08/26/2023 7:30:06 AM This report has been signed electronically.
--- NOTE | 2023-08-26 11:45 | PN.HOSP_ITS ---
Reason for Visit Reason for Visit: Diagnoses Anemia, unspecified (08/24/23) Hypothyroidism, unspecified (08/24/23) Essential (primary) hypertension (08/24/23) Gastrointestinal hemorrhage, unspecified (08/24/23) Subjective Subjective No acute events overnight. Patient had colonoscopy done early this morning and there was blood noted in the entire examined colon as well as diverticulosis in the rectosigmoid colon, sigmoid colon and descending colon. However, preparation of the colon was inadequate and recommendation is for repeat colonoscopy. Patient seen at bedside this morning, daughter present. Patient was sitting up comfortably in bed, conversing normally, no acute distress. Patient's right sided facial swelling looks improved this morning. Patient denies any significant facial pain or discomfort. She is somewhat frustrated th at she has to redo the colonoscopy but otherwise feels well this morning at rest. She still feels slightly lightheaded and unsteady on her feet when walking. She otherwise denies any other pain or discomfort. No other acute concerns this time. Objective Data Objective Data Vital Signs: Vital Signs Temp Pulse Resp BP Pulse Ox O2 Del Method 98 F 88 14 139/55 H 100 Room Air 08/26/23 11:21 08/26/23 11:21 08/26/23 11:21 08/26/23 11:21 08/26/23 11:21 08/26/23 11:21 Oxygen Delivery Method Room Air Weight: 75 kg Body Mass Index (BMI) 23.7 Intake & Output: Intake and Output for Last 24 Hours 08/24/23 08/25/23 08/26/23 23:59 23:59 23:59 Intake Total 1145 / 1145 2221 / 2221 60.75 / 60.75 Balance 1145 / 1145 2221 / 2221 60.75 / 60.75 Lab / Micro Data 08/26/23 02:16 08/26/23 02:16 Labs: Laboratory Results - last 24 hr 08/24/23 15:59: Crossmatch See Detail 08/26/23 02:16: WBC 9.0, RBC 2.27 L, Hgb 6.7 L, Hct 20.7 L, MCV 91.2, MCH 29.5, MCHC 32.4, RDW Std Deviation 47.9 H, RDW Coeff of Masood 14.8 H, Plt Count 224, MPV 9.1, Sodium 137, Potassium 3.2 L, Chloride 111 H, Carbon Dioxide 23.0, Anion Gap 3 L, BUN 25 H, Creatinine 0.53 L, Estim Creat Clear Calc 73.79, Est GFR (MDRD) Af Amer 148, Est GFR (MDRD) Non-Af 122, BUN/Creatinine Ratio 47.2 H, Glucose 124 H, Calcium 8.3 L Physical Exam Const alert, oriented x3, no apparent distress and average body habitus Constitutional Narrative: Pleasant elderly female, sitting up comfortably in bed, conversing normally, no acute distress. General Appearance: cooperative and comfortable HEENT normocephalic, head/scalp atraumatic, hearing grossly normal bilaterally, nasal mucous membranes and turbinates normal and moist oral mucous membranes HEENT Narrative: Right facial swelling with bruising noted secondary to recent fall, improving. Mild abrasion noted in infraorbital region. Eyes PERRL, EOMs intact bilaterally and conjunctivae normal Neck full ROM, no lymphadenopathy and supple Lymph Lymphatic: no lymphadenopathy noted Chest inspection of chest normal Resp normal respiratory effort, normal air movement, no use of accessory muscles and clear to auscultation bilaterally Cardio regular rate, regular rhythm, no murmurs and peripheral pulses 2+ throughout GI normal to inspection, nondistended, normoactive bowel sounds, soft to palpation, non-tender and non-distended Back/Spine normal ROM Extremity normal to inspection, full ROM and no pedal edema Skin no rashes or lesions noted Neuro no focal motor deficits and no sensory deficits noted Speech: speech normal Psych mental status grossly normal Assessment & Plan Assessment/Plan (1) Acute gastrointestinal bleeding: (2) Symptomatic anemia: PLAN: Plan Patient is a 68-year-old female who presented to [facility] ED on 08/24/2023 with several day history of dark stools. 1. Symptomatic anemia with GI bleed; new diagnosis of grade 2 esophageal varices Hemoglobin 9.1 on admit, no recent values for comparison the patient was hypotensive and tachycardic on arrival and had witnessed maroon-colored stools. Also had elevated BUN/Cr ratio suggestive of upper GI bleed. S/p EGD on 08/24 with grade 2 esophageal varices noted as well as a single nonbleeding angiodysplastic lesion in the stomach treated with heater probe. CT chest abdomen pelvis with IV contrast on 08/24 showed no evidence of liver disease, no other significant abnormalities. Colonoscopy 08/26 showed blood in entire examined colon, diverticulosis in the rectosigmoid colon, sigmoid colon and descending colon, however prep was noted to be inadequate. ? GI following. Hemoglobin 6.7 on morning of 08/26, will transfuse another 1 unit of packed red blood cells today. Continue IV PPI twice daily. Planning for repeat colonoscopy, likely tomorrow. Unclear in etiology for esophageal varices as patient has no liver disease or other abnormalities noted on imaging, appreciate further GI recommendations regarding this. 2. Syncopal episode with fall and superficial facial injuries Had unwitnessed fall on monitoring analyst of 08/25. CT head, C-spine and face and sinus contrast with no acute findings. Significant right facial hematoma with mild abrasion and right infraorbital region noted after fall. ? Neurology evaluated. Highest suspicion is for vasovagal syncope in setting of anemia as noted above. Monitor, no need for further workup at this time. 3. Mild leukocytosis, resolved ? WBC count 13 after EGD. Suspect secondary to acute stress state, low concern for active infection. WBC count 9.0 on 08/26. Monitoring CBC daily as noted above. Chronic medical conditions: ? Hypertension: Holding home lisinopril?hydrochlorothiazide. ? Hypothyroidism: Continue home Synthroid. ? Hyperlipidemia: Continue home fenofibrate. DVT prophylaxis: SCDs CODE STATUS: Full code, verified Expect disposition: Likely home with home health care, 2 to 3 days Total clinical time spent by myself addressing the patient's medical issues, reviewing all the data, and collaborating with patient's care team: 35 minutes. Charges/Coding Visit Charges Inpatient E&M: 11352 Subs Hosp L2
[2023-08-26] MEDS: Pantoprazole Sodium 40 MG in 0.9% Normal Saline (100mL MB+) 100 ML 330 MG IV ×2 (12:36→21:02)
[2023-08-26] MEDS: Potassium Chloride Oral Tablet 20 MEQ 40 MEQ PO (12:36)
--- NOTE | 2023-08-26 14:36 | PCM.PN.RX ---
Progress Note - Pharmacy Subjective/Objective Subjective/Objective: Asked by nursing to speak with patient regarding vitamins/ herbal supplements. The patient had some questions and concerns regarding the supplements she takes at home. Counselled patient on risk of taking several supplements that are not proven safe and effective by the FDA. Pharmacy recommended that the patient consider only taking a once Daily multivitamin, Vitamin D (per pt, has history of low Vitamin D levels). Patient also inquired about taking Occuvite as well given history with eye issues. Pharmacy informed her that this would be OK to add to a multivitamin and Vitamin D. Patient agreed to consider only taking these medications and stop taking all her other supplements. Pharmacy answered all questions to her satisfaction. Date Date of Note:: 08/26/23
--- NOTE | 2023-08-26 17:00 | CASEMGMT ---
RN ADAN F/U: This RN CM met with pt at bedside. Pt sitting up in chair, alert and agreeable to discussion. Relayed Dr. Man's recommendation for HH at discharge and explained home bound status need for qualification. Pt states she would possibly be interested so her H/H levels could be monitored. Relayed that PT did not anticipated skilled therapy needs at discharge and pt agreeable and states she will be able to walk farther than she did today but she was just scared of falling again. Emotional support provided. List of skilled home health agencies in-network with her insurance and in pt's preferred geographic region and including quality and resource use data provided to pt for pt to review and consider. Will continue to monitor pt's activity and decision for skilled home nursing services at discharge. Veronika Faria RN AC
[2023-08-26] MEDS: 0.9% Saline Lock 10 ML Syringe IV (21:02)
[2023-08-27 03:31] VITALS: BP 121/59; PULSE 74; RESP 16; TEMP 36.6; O2SAT 100
[2023-08-27] MEDS: Levothyroxine 75 MCG Tablet PO (05:42)
[2023-08-27 06:27] LABS: Hemoglobin 7.3 g/dL (12.0-15.0); Mean Corp Hgb Conc 31.7 g/dL (32-36); Mean Corpuscular Hgb 29.7 pg (27.0-32.0); Mean Corpuscular Volume 93.5 fL (81-99); Platelet Count 227 K/mm3 (150-450); RBC Distribution Width CV 14.9 % (11.6-14.6); RBC Distribution Width SD 48.9 fl (35.1-43.9); Red Blood Count 2.46 M/mm3 (4.2-5.4); White Blood Count 6.7 K/mm3 (4.4-11.0)
[2023-08-27 08:06] LABS: Anion Gap 3 (5-15); BUN 12 mg/dL (7-18); BUN/Creat Ratio 20.6 RATIO (10-20); Calcium,Total 8.4 mg/dL (8.5-10.1); Chloride 112 mmol/L (98-107); Creatinine, Serum 0.58 mg/dL (0.55-1.02); EST Glomerular Filtration Rate 110 mL/min (>60); Est Glom Filt Rate - Afr Amer 133 mL/min (>60); Estimated Creatinine Clearance 73.79 ml/min; Glucose 96 mg/dL (74-106); Potassium 3.7 mmol/L (3.5-5.1); Sodium Level 144 mmol/L (136-145)
[2023-08-27 08:56] VITALS: BP 117/58; PULSE 76; RESP 17; TEMP 36.4; O2SAT 99
[2023-08-27] MEDS: Pantoprazole Sodium 40 MG in 0.9% Normal Saline (100mL MB+) 100 ML 330 MG IV ×2 (09:06→20:35)
[2023-08-27] MEDS: 0.9% Saline Lock 10 ML Syringe IV (10:35)
--- NOTE | 2023-08-27 12:47 | CASEMGMT ---
Addendum entered by Yulisa Newmna 08/27/23 14:59: [facility] HH state they can accept the pt (SN) and SOC in Wednesday. Original Note: Pt states that she is still wanting to have HHC after DC. Pt states projected DC date is tomorrow. Pt states that she does not need PT at home. PT note states that they do not anticipate skilled needs at home. At this time the pt and this RN CM reviewed the [facility] agency list and the pt chooses [facility] for SN. [facility] at this time and voice message left for referral. Will follow.
--- NOTE | 2023-08-27 14:51 | PN.HOSP_ITS ---
Reason for Visit Reason for Visit: Diagnoses Anemia, unspecified (08/24/23) Hypothyroidism, unspecified (08/24/23) Essential (primary) hypertension (08/24/23) Gastrointestinal hemorrhage, unspecified (08/24/23) Subjective Subjective No acute events overnight. Patient seen at bedside this morning. Patient was sitting up comfortably in bed, conversing normally, no acute distress. Continues to have right-sided facial bruising but facial swelling continues to improve from previous days. Patient states that Dr. Ceballos told her that the plan is to complete an outpatient capsule endoscopy after discharge, no plans for repeat colonoscopy while inpatient. Patient had breakfast morning and tolerated this without issue. She has not had any bowel movements in over 24 hours. She has been getting up with assistance and has had minimal lighthe adedness or dizziness. No other acute concerns this time. Objective Data Objective Data Vital Signs: Vital Signs Temp Pulse Resp BP Pulse Ox O2 Del Method 97.5 F L 76 17 117/58 L 99 Room Air 08/27/23 08:56 08/27/23 08:56 08/27/23 08:56 08/27/23 08:56 08/27/23 08:56 08/27/23 08:56 Oxygen Delivery Method Room Air Weight: 75 kg Body Mass Index (BMI) 23.7 Intake & Output: Intake and Output for Last 24 Hours 08/25/23 08/26/23 08/27/23 23:59 23:59 23:59 Intake Total 2221 / 2221 1729.75 / 1849.75 230 / 230 Balance 2221 / 2221 1729.75 / 1849.75 230 / 230 Lab / Micro Data 08/27/23 05:50 08/27/23 05:50 Labs: Laboratory Results - last 24 hr 08/27/23 05:50: WBC 6.7, RBC 2.46 L, Hgb 7.3 L, Hct 23.0 L, MCV 93.5, MCH 29.7, MCHC 31.7 L, RDW Std Deviation 48.9 H, RDW Coeff of Masood 14.9 H, Plt Count 227, MPV 9.0, Sodium 144, Potassium 3.7, Chloride 112 H, Carbon Dioxide 29.0, Anion Gap 3 L, BUN 12, Creatinine 0.58, Estim Creat Clear Calc 73.79, Est GFR (MDRD) Af Amer 133, Est GFR (MDRD) Non-Af 110, BUN/Creatinine Ratio 20.6 H, Glucose 96, Calcium 8.4 L Physical Exam Const alert, oriented x3, no apparent distress and average body habitus Constitutional Narrative: Pleasant elderly female, sitting up comfortably in bed, conversing normally, no acute distress. General Appearance: cooperative and comfortable HEENT normocephalic, head/scalp atraumatic, hearing grossly normal bilaterally, nasal mucous membranes and turbinates normal and moist oral mucous membranes HEENT Narrative: Right facial swelling with bruising noted secondary to recent fall, improving. Mild abrasion noted in infraorbital region. Eyes PERRL, EOMs intact bilaterally and conjunctivae normal Neck full ROM, no lymphadenopathy and supple Lymph Lymphatic: no lymphadenopathy noted Chest inspection of chest normal Resp normal respiratory effort, normal air movement, no use of accessory muscles and clear to auscultation bilaterally Cardio regular rate, regular rhythm, no murmurs and peripheral pulses 2+ throughout GI normal to inspection, nondistended, normoactive bowel sounds, soft to palpation, non-tender and non-distended Back/Spine normal ROM Extremity normal to inspection, full ROM and no pedal edema Skin no rashes or lesions noted Neuro no focal motor deficits and no sensory deficits noted Speech: speech normal Psych mental status grossly normal Assessment & Plan Assessment/Plan (1) Acute gastrointestinal bleeding: (2) Symptomatic anemia: PLAN: Plan Patient is a 68-year-old female who presented to [facility] ED on 08/24/2023 with several day history of dark stools. 1. Symptomatic anemia with GI bleed; new diagnosis of grade 2 esophageal varices Hemoglobin 9.1 on admit, no recent values for comparison the patient was hypotensive and tachycardic on arrival and had witnessed maroon-colored stools. Also had elevated BUN/Cr ratio suggestive of upper GI bleed. S/p EGD on 08/24 with grade 2 esophageal varices noted as well as a single nonbleeding angiodysplastic lesion in the stomach treated with heater probe. CT chest abdomen pelvis with IV contrast on 08/24 showed no evidence of liver disease, no other significant abnormalities. Colonoscopy 08/26 showed blood in entire examined colon, diverticulosis in the rectosigmoid colon, sigmoid colon and descending colon, however prep was noted to be inadequate. S/p 2 units packed red blood cells as of 08/27. ? GI following. Hemoglobin 7.3 on morning of 08/27. GI planning for capsule e ndoscopy outpatient, no plans for repeat colonoscopy while inpatient. De- escalated to p.o. PPI twice daily on 08/27. If patient hemoglobin remained stable on 08/28, likely okay for discharge home. Unclear in etiology for esophageal varices as patient has no liver disease or other abnormalities noted on imaging, appreciate further GI recommendations regarding this. 2. Syncopal episode with fall and superficial facial injuries, acute debility Had unwitnessed fall on playground monitor of 08/25. CT head, C-spine and face and sinus contrast with no acute findings. Significant right facial hematoma with mild abrasion and right infraorbital region noted after fall. ? Neurology evaluated. Highest suspicion is for vasovagal syncope in setting of anemia as noted above. PT/OT/case management following. Planning for home with home health care on discharge. 3. Mild leukocytosis, resolved ? WBC count 13 after EGD. Suspect secondary to acute stress state, low concern for active infection. WBC count 9.0 on 08/26. Monitoring CBC daily as noted above. Chronic medical conditions: ? Hypertension: Holding home lisinopril?hydrochlorothiazide for now, will need to determine if patient will be okay to resume on discharge. ? Hypothyroidism: Continue home Synthroid. ? Hyperlipidemia: Continue home fenofibrate. DVT prophylaxis: SCDs CODE STATUS: Full code, verified Expect disposition: Home with home health care, 1 to 2 days Total clinical time spent by myself addressing the patient's medical issues, reviewing all the data, and collaborating with patient's care team: 35 minutes. Charges/Coding Visit Charges Inpatient E&M: 68466 Subs Hosp L2
[2023-08-27 16:09] VITALS: BP 143/65; PULSE 75; RESP 17; TEMP 36.6; O2SAT 99
--- NOTE | 2023-08-27 20:15 | EX.PCM.PN.GI ---
Subjective Subjective Patient has not had any more signs of G.I. bleeding overnight. She's tolerating a diet. Objective Data Objective Data Vital Signs: Vital Signs Temp Pulse Resp BP Pulse Ox O2 Del Method 97.9 F 75 17 143/65 H 99 Room Air 08/27/23 16:09 08/27/23 16:09 08/27/23 16:09 08/27/23 16:09 08/27/23 16:09 08/27/23 16:09 Oxygen Delivery Method Room Air Weight: 165 lb 5.547 oz Body Mass Index (BMI) 23.7 Intake & Output: Intake and Output for Last 24 Hours 08/25/23 08/26/23 08/27/23 23:59 23:59 23:59 Intake Total 222 / 2221 1729.75 / 1849.75 1030 / 1030 Balance 222 / 2221 1729.75 / 1849.75 1030 / 1030 Lab / Micro Data 08/27/23 05:50 08/27/23 05:50 Labs: Laboratory Results - last 24 hr 08/27/23 05:50: WBC 6.7, RBC 2.46 L, Hgb 7.3 L, Hct 23.0 L, MCV 93.5, MCH 29.7, MCHC 31.7 L, RDW Std Deviation 48.9 H, RDW Coeff of Masood 14.9 H, Plt Count 227, MPV 9.0, Sodium 144, Potassium 3.7, Chloride 112 H, Carbon Dioxide 29.0, Anion Gap 3 L, BUN 12, Creatinine 0.58, Estim Creat Clear Calc 73.79, Est GFR (MDRD) Af Amer 133, Est GFR (MDRD) Non-Af 110, BUN/Creatinine Ratio 20.6 H, Glucose 96, Calcium 8.4 L Physical Exam Const alert, oriented x3, no apparent distress and average body habitus Constitutional Narrative: Pleasant elderly female, sitting up comfortably in bed, conversing normally, no acute distress. General Appearance: cooperative and comfortable HEENT normocephalic, head/scalp atraumatic, hearing grossly normal bilaterally, nasal mucous membranes and turbinates normal and moist oral mucous membranes HEENT Narrative: Right facial swelling with bruising noted secondary to recent fall, improving. Mild abrasion noted in infraorbital region. Eyes PERRL, EOMs intact bilaterally and conjunctivae normal Neck full ROM, no lymphadenopathy and supple Lymph Lymphatic: no lymphadenopathy noted Chest inspection of chest normal Resp normal respiratory effort, normal air movement, no use of accessory muscles and clear to auscultation bilaterally Cardio regular rate, regular rhythm, no murmurs and peripheral pulses 2+ throughout GI normal to inspection, nondistended, normoactive bowel sounds, soft to palpation, non-tender and non-distended Back/Spine normal ROM Extremity normal to inspection, full ROM and no pedal edema Skin no rashes or lesions noted Neuro no focal motor deficits and no sensory deficits noted Speech: speech normal Psych mental status grossly normal Assessment & Plan Assessment/Plan (1) Acute gastrointestinal bleeding: (2) Symptomatic anemia: PLAN: Plan Patient is a 68-year-old female with several day history of dark stools. Symptomatic anemia with GI bleed; new diagnosis of grade 2 esophageal varices of the proximal esophagus. There was no bleeding stigmata. -No sign of Pancoast tumor or SV thrombosis. They can cause upper esophageal varices. -Medical therapy is to maintain normal to low bp Hemoglobin 9.1 on admit. I talked to her daughter Erin and she says that her last blood count a few months ago was normal - EGD on 08/24 with grade 2 esophageal varices noted as well as a single nonbleeding angiodysplastic lesion in the stomach treated with heater probe. CT chest abdomen pelvis with IV contrast on 08/24 showed no evidence of liver disease, no other significant abnormalities. - Colonoscopy 08/26 showed blood in entire examined colon, diverticulosis in the rectosigmoid colon, sigmoid colon and descending colon, however prep was noted to be inadequate. S/p 2 units packed red blood cells as of 08/27. ? Hemoglobin 7.3 on morning of 08/27. Outpatient capsule endoscopy outpatient, no plans for repeat colonoscopy while inpatient. - If her hgb remains stable tomorrow, she can be discharged home Charges/Coding Visit Charges Inpatient E&M: 46469 [facility] Hosp L3
[2023-08-27 22:00] VITALS: BP 140/65; PULSE 70; RESP 16; TEMP 36.8; O2SAT 100
[2023-08-28] VITALS (8 sets, daily range): BP systolic 126–158; BP diastolic 58–74; PULSE 65–78; RESP 16; TEMP 36.3–36.9; O2SAT 98–100
[2023-08-28] MEDS: Levothyroxine 75 MCG Tablet PO (04:37)
[2023-08-28 04:44] LABS: Hematocrit 22.3 % (37-47); Hemoglobin 7.1 g/dL (12.0-15.0); Mean Corp Hgb Conc 31.8 g/dL (32-36); Mean Corpuscular Hgb 30.3 pg (27.0-32.0); Mean Corpuscular Volume 95.3 fL (81-99); Mean Platelet Vol. 9.2 fl (6.2-12.0); Platelet Count 248 K/mm3 (150-450); RBC Distribution Width CV 15.5 % (11.6-14.6); RBC Distribution Width SD 48.8 fl (35.1-43.9); Red Blood Count 2.34 M/mm3 (4.2-5.4); White Blood Count 5.9 K/mm3 (4.4-11.0)
[2023-08-28 05:11] LABS: Anion Gap 5 (5-15); BUN 13 mg/dL (7-18); BUN/Creat Ratio 24.2 RATIO (10-20); Calcium,Total 8.7 mg/dL (8.5-10.1); Chloride 111 mmol/L (98-107); Creatinine, Serum 0.54 mg/dL (0.55-1.02); EST Glomerular Filtration Rate 120 mL/min (>60); Est Glom Filt Rate - Afr Amer 146 mL/min (>60); Estimated Creatinine Clearance 73.79 ml/min; Glucose 87 mg/dL (74-106); Potassium 3.7 mmol/L (3.5-5.1); Sodium Level 143 mmol/L (136-145)
[2023-08-28] MEDS: Pantoprazole Sodium 40 MG Tablet PO (09:43)
--- NOTE | 2023-08-28 12:22 | PN.HOSP_ITS ---
Reason for Visit Reason for Visit: Diagnoses Anemia, unspecified (08/24/23) Hypothyroidism, unspecified (08/24/23) Essential (primary) hypertension (08/24/23) Gastrointestinal hemorrhage, unspecified (08/24/23) Subjective Subjective No acute events overnight. Patient seen at bedside this morning. Sitting up comfortably in bed, conversing normally, no acute distress. Patient states she had mild lightheadedness/dizziness with going from sitting to standing this morning when she got up to go to the bathroom. She otherwise feels very comfort able at rest, denies any acute pain or discomfort. No other acute concerns at this time. Objective Data Objective Data Vital Signs: Vital Signs Temp Pulse Resp BP Pulse Ox O2 Del Method 98.1 F 66 16 140/60 H 100 Room Air 08/28/23 11:56 08/28/23 11:56 08/28/23 11:56 08/28/23 11:56 08/28/23 11:56 08/28/23 11:56 Oxygen Delivery Method Room Air Weight: 75 kg Body Mass Index (BMI) 23.7 Intake & Output: Intake and Output for Last 24 Hours 08/26/23 08/27/23 08/28/23 23:59 23:59 23:59 Intake Total 1729.75 / 1849.75 1140 / 1380 480 / 480 Balance 1729.75 / 1849.75 1140 / 1380 480 / 480 Lab / Micro Data 08/28/23 03:15 08/28/23 03:15 Labs: Laboratory Results - last 24 hr 08/24/23 15:59: Crossmatch See Detail 08/28/23 03:15: WBC 5.9, RBC 2.34 L, Hgb 7.1 L, Hct 22.3 L, MCV 95.3, MCH 30.3, MCHC 31.8 L, RDW Std Deviation 48.8 H, RDW Coeff of Masood 15.5 H, Plt Count 248, MPV 9.2, Sodium 143, Potassium 3.7, Chloride 111 H, Carbon Dioxide 27.0, Anion Gap 5, BUN 13, Creatinine 0.54 L, Estim Creat Clear Calc 73.79, Est GFR (MDRD) Af Amer 146, Est GFR (MDRD) Non-Af 120, BUN/Creatinine Ratio 24.2 H, Glucose 87, Calcium 8.7 02/10/24 08:17: Blood Type A POSITIVE, Antibody Screen NEGATIVE, Crossmatch See Detail Physical Exam Const alert, oriented x3, no apparent distress and average body habitus Constitutional Narrative: Pleasant elderly female, sitting up comfortably in bed, conversing normally, no acute distress. General Appearance: cooperative and comfortable HEENT normocephalic, head/scalp atraumatic, hearing grossly normal bilaterally, nasal mucous membranes and turbinates normal and moist oral mucous membranes HEENT Narrative: Right facial swelling with bruising noted secondary to recent fall, improving. Mild abrasion noted in infraorbital region. Eyes PERRL, EOMs intact bilaterally and conjunctivae normal Neck full ROM, no lymphadenopathy and supple Lymph Lymphatic: no lymphadenopathy noted Chest inspection of chest normal Resp normal respiratory effort, normal air movement, no use of accessory muscles and clear to auscultation bilaterally Cardio regular rate, regular rhythm, no murmurs and peripheral pulses 2+ throughout GI normal to inspection, nondistended, normoactive bowel sounds, soft to palpation, non-tender and non-distended Back/Spine normal ROM Extremity normal to inspection, full ROM and no pedal edema Skin no rashes or lesions noted Neuro no focal motor deficits and no sensory deficits noted Speech: speech normal Psych mental status grossly normal Assessment & Plan Assessment/Plan (1) Acute gastrointestinal bleeding: (2) Symptomatic anemia: PLAN: Plan Patient is a 68-year-old female who presented to [facility] ED on 08/24/2023 with several day history of dark stools. 1. Symptomatic anemia with GI bleed; new diagnosis of grade 2 esophageal varices Hemoglobin 9.1 on admit, no recent values for comparison the patient was hypotensive and tachycardic on arrival and had witnessed maroon-colored stools. Also had elevated BUN/Cr ratio suggestive of upper GI bleed. S/p EGD on 08/24 with grade 2 esophageal varices noted as well as a single nonbleeding angiodysp lastic lesion in the stomach treated with heater probe. CT chest abdomen pelvis with IV contrast on 08/24 showed no evidence of liver disease, no other significant abnormalities. Colonoscopy 08/26 showed blood in entire examined colon, diverticulosis in the rectosigmoid colon, sigmoid colon and descending colon, however prep was noted to be inadequate. S/p 2 units packed red blood cells as of 08/27. ? GI following. Hemoglobin 7.1 on morning of 08/28, will transfuse 1 unit of packed blood cells today in preparation for discharge later this afternoon. De- escalated to p.o. PPI twice daily on 08/27. GI planning for capsule endoscopy outpatient, no plans for repeat colonoscopy while inpatient. Unclear in etiology for esophageal varices as patient has no liver disease or other abnormalities noted on imaging, appreciate further GI recommendations regarding this. 2. 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 CT head, C-spine and face and sinus contrast with no acute findings. Significant right facial hematoma with mild abrasion and right infraorbital region noted after fall. ? Neurology evaluated. Highest suspicion is for vasovagal syncope in setting of anemia as noted above. PT/OT/case management following. Planning for home with home health care on discharge. 3. Mild leukocytosis, resolved ? WBC count 13 after EGD. Suspect secondary to acute stress state, low concern for active infection. WBC count 9.0 on 08/26. Monitoring CBC daily as noted above. Chronic medical conditions: ? Hypertension: Holding home lisinopril?hydrochlorothiazide for now, will likely hold on discharge and recommend close outpatient follow-up with PCP to determine time of restarting. ? Hypothyroidism: Continue home Synthroid. ? Hyperlipidemia: Continue home fenofibrate. DVT prophylaxis: SCDs CODE STATUS: Full code, verified Expect disposition: Home with home health care, today Total clinical time spent by myself addressing the patient's medical issues, reviewing all the data, and collaborating with patient's care team: 35 minutes. Charges/Coding Visit Charges Inpatient E&M: 45455 Subs Hosp L2
--- NOTE | 2023-08-28 13:51 | EX.PCM.PN.GI ---
Subjective Subjective Patient denies any pain. She has not had any signs or symptoms of GI bleeding overnight. I had another conversation with her daughter. Objective Data Objective Data Vital Signs: Vital Signs Temp Pulse Resp BP Pulse Ox O2 Del Method 98.2 F 72 16 130/59 H 100 Room Air 08/28/23 13:24 08/28/23 13:24 08/28/23 13:24 08/28/23 13:24 08/28/23 13:24 08/28/23 13:24 Oxygen Delivery Method Room Air Weight: 165 lb 5.547 oz Body Mass Index (BMI) 23.7 Intake & Output: Intake and Output for Last 24 Hours 08/26/23 08/27/23 08/28/23 23:59 23:59 23:59 Intake Total 1729.75 / 1849.75 1140 / 1380 480 / 480 Balance 1729.75 / 1849.75 1140 / 1380 480 / 480 Lab / Micro Data 08/28/23 03:15 08/28/23 03:15 Labs: Laboratory Results - last 24 hr 08/24/23 15:59: Crossmatch See Detail 08/28/23 03:15: WBC 5.9, RBC 2.34 L, Hgb 7.1 L, Hct 22.3 L, MCV 95.3, MCH 30.3, MCHC 31.8 L, RDW Std Deviation 48.8 H, RDW Coeff of Masood 15.5 H, Plt Count 248, MPV 9.2, Sodium 143, Potassium 3.7, Chloride 111 H, Carbon Dioxide 27.0, Anion Gap 5, BUN 13, Creatinine 0.54 L, Estim Creat Clear Calc 73.79, Est GFR (MDRD) Af Amer 146, Est GFR (MDRD) Non-Af 120, BUN/Creatinine Ratio 24.2 H, Glucose 87, Calcium 8.7 08/28/23 08:17: Blood Type A POSITIVE, Antibody Screen NEGATIVE, Crossmatch See Detail Physical Exam Const alert, oriented x3, no apparent distress and average body habitus General Appearance: cooperative and comfortable HEENT normocephalic, head/scalp atraumatic, hearing grossly normal bilaterally, nasal mucous membranes and turbinates normal and moist oral mucous membranes HEENT Narrative: Right facial swelling with bruising noted secondary to recent fall, improving. Mild abrasion noted in infraorbital region. Eyes PERRL, EOMs intact bilaterally and conjunctivae normal Neck full ROM, no lymphadenopathy and supple Lymph Lymphatic: no lymphadenopathy noted Chest inspection of chest normal Resp normal respiratory effort, normal air movement, no use of accessory muscles and clear to auscultation bilaterally Cardio regular rate, regular rhythm, no murmurs and peripheral pulses 2+ throughout GI normal to inspection, nondistended, normoactive bowel sounds, soft to palpation, non-tender and non-distended Back/Spine normal ROM Extremity normal to inspection, full ROM and no pedal edema Skin no rashes or lesions noted Neuro no focal motor deficits and no sensory deficits noted Speech: speech normal Psych mental status grossly normal Assessment & Plan Assessment/Plan (1) Acute gastrointestinal bleeding: (2) Symptomatic anemia: PLAN: Plan Patient is a 68-year-old female with several day history of dark stools. Symptomatic anemia with GI bleed; new diagnosis of grade 2 esophageal varices of the proximal esophagus. There was no bleeding stigmata. -No sign of Pancoast tumor or SV thrombosis. They can cause upper esophageal varices. -Medical therapy is to maintain normal to low bp Hemoglobin 9.1 on admit. I talked to her daughter Erin and she says that her last blood count a few months ago was normal - EGD on 08/24 with grade 2 esophageal varices noted as well as a single nonbleeding angiodysplastic lesion in the stomach treated with heater probe. CT chest abdomen pelvis with IV contrast on 08/24 showed no evidence of liver disease, no other significant abnormalities. - Colonoscopy 08/26 showed blood in entire examined colon, diverticulosis in the rectosigmoid colon, sigmoid colon and descending colon, however prep was noted to be inadequate. S/p 2 units packed red blood cells as of 08/27. ? Hemoglobin 7.3 on morning of 08/27. Outpatient capsule endoscopy outpatient, no plans for repeat colonoscopy while inpatient. - If her hgb remains stable tomorrow, she can be discharged home 08/28/23-hemoglobin seems to be stable at 7.1. If she is not discharged today then she may benefit from iron transfusions. Otherwise she can get iron transfusion as an outpatient. Plan is still for capsule endoscopy as an outpatient. Charges/Coding Visit Charges Inpatient E&M: 62870 Subs Hosp L3
[2023-08-28 14:28] LABS: Hematocrit 27.3 % (37-47); Hemoglobin 8.9 g/dL (12.0-15.0)
--- NOTE | 2023-08-28 15:30 | DCINST_ITS ---
Discharge Instructions Diet Discharge Diet: No restrictions Activity Discharge Activity: No Restrictions Weight Bearing Status: Full weight bearing Follow Up Care Test Results: Test results from this visit will be discussed in further detail at your follow- up appointment, if applicable. Discharge Plan Admission Admit Date/Time: 08/24/23 16:38 Primary Reason for Your Visit: GI bleed Attending Provider: Uziel Man Primary Care Provider: Palmira Felix Consulting Providers: Nav Ceballos; Daniel Cook; Hilda Benson; Maria C Rangel; Junie Dubon; Jasmin Null; Woo Peters; Radha Luke; Pipe Ziegler; Cullen Aiken; Jennifer Ruiz; Yasmany Cheek; Radha Bah; Gina Cobb; Naty Murdock; Zac Lane; Emily Reeves; Timothy Gonzalez; Kori Nunez; Smooth Penny; Alberta Ziegler Instructions Additional Instructions / Restrictions: Please start taking the Protonix twice daily going forward. Stop taking your blood pressure medication for now. Follow up with your PCP in 1-2 weeks and they can determine if you need to restart that medication. Discharge Orders/Prescriptions Prescriptions: New pantoprazole 40 mg Tablet,Delayed Release (Dr/Ec) 40 mg PO BID 30 Days Qty: 60 0RF Continued levothyroxine 75 MCG tablet 75 mcg PO DAILY Patient Comments: thyroid albuterol sulfate 90 mcg/actuation HFA aerosol inhaler 2 puff INHALATION Q6H PRN (Reason: shortness of breath or wheezing) Patient Comments: inhale 2 puffs by mouth and INTO THE LUNGS every 4 hours if neede... (REFER TO PRESCRIPTION NOTES). fenofibrate nanocrystallized 48 mg tablet 48 mg PO QHS latanoprost 0.005 % drops 1 drp ophthalmic (eye) QHS Patient Comments: place 1 drop into both eyes daily Discontinued lisinopril-hydrochlorothiazide [Zestoretic] 1 TABLET tablet 1 tab PO DAILY Patient Comments: bp Referrals / Follow Up: Julian Ontiveros MD [Non-Staff] - Disposition Disposition (needs filled in before D/C Order can be placed): Home Health Service
--- NOTE | 2023-08-28 15:33 | DS.PCM_ITS ---
Providers Date of Admission: 08/24/23 Date of Discharge: 08/28/23 Primary Care Physician: Dr. Palmira Felix MD Consultations 08/24/23 18:41 Consult: Gastroenterology Routine Consulting Provider: [facility] Reason for Consult: GI bleed EMERGENT Consult: No Notified: Yes Date Notified: 08/24/23 Time Notified: 16:46 Method of Notification: ED Physician Initiated 08/25/23 02:41 Tele [Consult: Tele-Neurology] Routine Consulting Provider: [facility] Reason for Consult: Fall with syncope. Hairline # right frontal bone with hematoma in orbital EMERGENT Consult: No Notified: Yes Date Notified: 08/25/23 Time Notified: 02:42 Method of Notification: Answering Service Nursing Unit Staff Notify [facility] of Tele-Neurology Consult: Yes Reason For Visit: GI BLEED Diagnosis Discharge Diagnosis (1) Acute gastrointestinal bleeding: Status: Acute Code(s): K92.2 - Gastrointestinal hemorrhage, unspecified (2) Symptomatic anemia: Status: Acute Code(s): D64.9 - Anemia, unspecified Medications at Discharge Home Medications levothyroxine 75 mcg tablet 75 mcg PO DAILY 12/16/15 albuterol sulfate 90 mcg/actuation aerosol inhaler 2 puff inhalation Q6H PRN shortness of breath or wheezing 08/24/23 fenofibrate nanocrystallized 48 mg tablet 48 mg PO QHS cholesterol 08/26/23 latanoprost 0.005 % eye drops 1 drp ophthalmic (eye) QHS glaucoma 08/26/23 pantoprazole 40 mg tablet,delayed release 40 mg PO BID 30 days #60 tabs 08/28/23 Hospital Course Operations None Procedures EGD, EKG and - (CTA chest abdomen pelvis, CT brain and C-spine without contrast, CT facial/sinus without contrast) Summary of Care Provided Minutes Spent on Discharge: 35 Hospital Course: Patient is a 68-year-old female who presented to [facility] ED on 08/24/2023 with several day history of dark stools. Hospital course as noted below. Patient discharged home with home health care in stable condition on . Symptomatic anemia with GI bleed; new diagnosis of grade 2 esophageal varices Hemoglobin 9.1 on admit, no recent values for comparison the patient was hypote nsive and tachycardic on arrival and had witnessed maroon-colored stools. Also had elevated BUN/Cr ratio suggestive of upper GI bleed. S/p EGD on 08/24 with grade 2 esophageal varices noted as well as a single nonbleeding angiodysplastic lesion in the stomach treated with heater probe. CT chest abdomen pelvis with IV contrast on 08/24 showed no evidence of liver disease, no other significant abnormalities. Colonoscopy 08/26 showed blood in entire examined colon, diverticulosis in the rectosigmoid colon, sigmoid colon and descending colon, however prep was noted to be inadequate. S/p 3 units of packed red blood cells during the hospitalization. ? GI followed. Continue p.o. PPI twice daily on discharge. GI planning for close outpatient follow-up with capsule endoscopy for further evaluation. 2. Syncopal episode with fall and superficial facial injuries, acute debility Had unwitnessed fall on early intervention specialist of 08/25. CT head, C-spine and face and sinus contrast with no acute findings. Significant right facial hematoma with mild abrasion and right infraorbital region noted after fall. ? Neurology evaluated. Highest suspicion is for vasovagal syncope in setting of anemia as noted above. PT/OT/case management followed. Stable for home with home health care on discharge. 3. Mild leukocytosis, resolved ? WBC count 13 after EGD. Suspect secondary to acute stress state, low concern for active infection. WBC count 9.0 on 08/26. Resolved. Chronic medical conditions: ? Hypertension: Held home lisinopril?hydrochlorothiazide while inpatient, BPs remained normotensive during hospitalization. Will hold on discharge given patient's single episode with orthostatic hypotension, recommend close outpatient follow-up with PCP and can restart home medication as needed. ? Hypothyroidism: Continue home Synthroid. ? Hyperlipidemia: Continue home fenofibrate. Total clinical time spent by myself addressing the patient's discharge needs: 35 minutes. Physical Exam Const alert, oriented x3, no apparent distress and average body habitus Constitutional Narrative: Pleasant elderly female, sitting up comfortably in bed, conversing normally, no acute distress. General Appearance: cooperative and comfortable HEENT normocephalic, head/scalp atraumatic, hearing grossly normal bilaterally, nasal mucous membranes and turbinates normal and moist oral mucous membranes HEENT Narrative: Right facial swelling with bruising noted secondary to recent fall, improving. Mild abrasion noted in infraorbital region. Eyes PERRL, EOMs intact bilaterally and conjunctivae normal Neck full ROM, no lymphadenopathy and supple Lymph Lymphatic: no lymphadenopathy noted Chest inspection of chest normal Resp normal respiratory effort, normal air movement, no use of accessory muscles and clear to auscultation bilaterally Cardio regular rate, regular rhythm, no murmurs and peripheral pulses 2+ throughout GI normal to inspection, nondistended, normoactive bowel sounds, soft to palpation, non-tender and non-distended Back/Spine normal ROM Extremity normal to inspection, full ROM and no pedal edema Skin no rashes or lesions noted Neuro no focal motor deficits and no sensory deficits noted Speech: speech normal Psych mental status grossly normal Weight / BMI Weight Weight: 75 kg Body Mass Index (BMI) 23.7 ABG / Lab / Microbiology Data 08/28/23 14:20 08/28/23 03:15 Laboratory: Laboratory Results - last 24 hr 08/24/23 15:59: Crossmatch See Detail 08/28/23 03:15: WBC 5.9, RBC 2.34 L, Hgb 7.1 L, Hct 22.3 L, MCV 95.3, MCH 30.3, MCHC 31.8 L, RDW Std Deviation 48.8 H, RDW Coeff of Masood 15.5 H, Plt Count 248, MPV 9.2, Sodium 143, Potassium 3.7, Chloride 111 H, Carbon Dioxide 27.0, Anion Gap 5, BUN 13, Creatinine 0.54 L, Estim Creat Clear Calc 73.79, Est GFR (MDRD) Af Amer 146, Est GFR (MDRD) Non-Af 120, BUN/Creatinine Ratio 24.2 H, Glucose 87, Calcium 8.7 08/28/23 08:17: Blood Type A POSITIVE, Antibody Screen NEGATIVE, Crossmatch See Detail 08/28/23 14:20: Hgb 8.9 L, Hct 27.3 L D/C Instructions Discharge Diet: No restrictions Weight Bearing Status: Full weight bearing Meaningful Use Info Meaningful Use Diagnoses (Choose all that apply): None applicable Discharge Plan Admission Admit Date/Time: 08/24/23 16:38 Primary Reason for Your Visit: GI bleed Attending Provider: Uziel Man Primary Care Provider: Palmira Felix Consulting Providers: Nav Ceballos; Daniel Cook; Hilda Benson; Maria C Rangel; Junie Dubon; Jasmin Null; Woo Peters; Radha Luke; Pipe Ziegler; Cullen Aiken; Jennifer Ruiz; Yasmany Cheek; Radha Bah; Gina Cobb; Naty Murdock; Zac Lane; Emily Reeves; Timothy Gonzalez; Kori Nunez; Somoth Penny; Alberta Ziegler Instructions Additional Instructions / Restrictions: Please start taking the Protonix twice daily going forward. Stop taking your bl ood pressure medication for now. Follow up with your PCP in 1-2 weeks and they can determine if you need to restart that medication. Discharge Orders/Prescriptions Prescriptions: New pantoprazole 40 mg Tablet,Delayed Release (Dr/Ec) 40 mg PO BID 30 Days Qty: 60 0RF Continued levothyroxine 75 MCG tablet 75 mcg PO DAILY Patient Comments: thyroid albuterol sulfate 90 mcg/actuation HFA aerosol inhaler 2 puff INHALATION Q6H PRN (Reason: shortness of breath or wheezing) Patient Comments: inhale 2 puffs by mouth and INTO THE LUNGS every 4 hours if neede... (REFER TO PRESCRIPTION NOTES). fenofibrate nanocrystallized 48 mg tablet 48 mg PO QHS latanoprost 0.005 % drops 1 drp ophthalmic (eye) QHS Patient Comments: place 1 drop into both eyes daily Discontinued lisinopril-hydrochlorothiazide [Zestoretic] 1 TABLET tablet 1 tab PO DAILY Patient Comments: bp Referrals / Follow Up: Julian Ontiveros MD [Non-Staff] - Disposition Disposition (needs filled in before D/C Order can be placed): Home Health Service Charges/Coding Visit Charges Inpatient E&M: 80444 Disch Hosp >30min
== END 2023-08-28 16:05 | disposition home health service (06) | DRG 369 ==
LOC: ED 16:05 → SDC 16:11 → PCU 18:53 → SDC 18:54 → PCU 18:54
PROVIDERS: Anesthesiology; Internal Medicine; Internal Medicine Gastroenterology; Admitting Provider Internal Medicine; Emergency Provider Emergency Medicine; PCP Internal Medicine; Visit Provider Hospitalist
PROC: 0DJ08ZZ Inspection of Upper Intestinal Tract, Via Natural or Artificial Opening Endoscopic (ICD-10-PCS; CPT 43235; principal; 2023-08-24 16:10)
PROC: 0DJD8ZZ Inspection of Lower Intestinal Tract, Via Natural or Artificial Opening Endoscopic (ICD-10-PCS; CPT 45378; principal; 2023-08-26 06:30)
DX: I85.01 Esophageal varices with bleeding (principal); D62 Acute posthemorrhagic anemia; K57.31 Diverticulosis of large intestine without perforation or abscess with bleeding; E03.9 Hypothyroidism, unspecified; I10 Essential (primary) hypertension; W18.39XA Other fall on same level, initial encounter; E78.00 Pure hypercholesterolemia, unspecified; K31.819 Angiodysplasia of stomach and duodenum without bleeding; I95.1 Orthostatic hypotension; S00.11XA Contusion of right eyelid and periocular area, initial encounter; S00.211A Abrasion of right eyelid and periocular area, initial encounter; Y92.231 Patient bathroom in hospital as the place of occurrence of the external cause; Z79.899 Other long term (current) drug therapy
CPT/HCPCS: 36415; 70450; 70486; 71275; 72125; 74174; 80048; 82962; 84443; 84450; 84460; 84484; 85014; 85018; 85025; 85027; 85610; 85730; 86850; 86900; 86901; 86920; 86922; 93005; 97110; 97162; 97165; 97530; 99285; J7030; J7040; J7120; P9016; Q9967; A4216; J2405; J3490

== ENCOUNTER → 2023-09-01 | Outpatient (CLI) | payer MEDICARE, SELFPAY ==
[2023-09-01 08:42] LABS: Hematocrit 31.4 % (37-47); Hemoglobin 9.8 g/dL (12.0-15.0)
== END | disposition home or self-care (01) ==
LOC: LAB 08:11
PROVIDERS: PCP Internal Medicine; Referring Provider Internal Medicine Gastroenterology; Visit Provider Internal Medicine Gastroenterology
DX: K92.2 Gastrointestinal hemorrhage, unspecified (principal)
CPT/HCPCS: 36415; 85014; 85018